=== PATIENT | female | born 1945 | race Caucasian/White ===

== ENCOUNTER 2016-07-01 09:10 | Outpatient (RCR) | payer MEDICARE, BC ==
[~2016-07-01 09:10] MED LIST: ACTOS; ASCO500T6 PO; ASP81TEC; CHOL100045 PO; EZET10TA5 PO; LORA10TA7 PO; MAGN250T13 PO; MULT1CAP27 PO; PIOG1TAB34 PO; VITA-189 PO; VITA400T9 PO; [UNRECOGNIZED DRUG - CODE] PO
[2016-07-01 10:01] LABS: BASOPHILS % (AUTO) 1 % (0-10); EOSINOPHILS # (AUTO) 0.2 10^3/uL (0.0-0.3); EOSINOPHILS % (AUTO) 4 % (0-10); LYMPHOCYTES # (AUTO) 1.9 X 10^3 (1.0-4.0); LYMPHOCYTES % (AUTO) 37 % (12-44); MEAN CORPUSCULAR HEMOGLOBIN 30 PG (25-34); MEAN CORPUSCULAR HGB CONC 33 G/DL (32-36); MEAN CORPUSCULAR VOLUME 90 FL (80-99); MEAN PLATELET VOLUME 9.2 FL (7.4-10.4); MONOCYTES # (AUTO) 0.6 X 10^3 (0.0-1.0); MONOCYTES % (AUTO) 11 % (0-12); NEUTROPHILS # (AUTO) 2.6 X 10^3 (1.8-7.8); NEUTROPHILS % (AUTO) 48 % (42-75); PLATELET COUNT 215 10^3/uL (130-400); RED BLOOD COUNT 4.93 10^6/uL (4.35-5.85); RED CELL DISTRIBUTION WIDTH 14.5 % (10.0-14.5); WHITE BLOOD COUNT 5.3 10^3/uL (4.3-11.0)
[2016-07-01 10:26] LABS: ALANINE AMINOTRANSFERASE 15 U/L (0-55); ALBUMIN 4.2 G/DL (3.2-4.5); ANION GAP 10 MMOL/L (5-14); ASPARTATE AMINO TRANSFERASE 20 U/L (5-34); BILIRUBIN,TOTAL 0.5 MG/DL (0.1-1.0); BLOOD UREA NITROGEN 12 MG/DL (7-18); BUN/CREATININE RATIO 17; CARBON DIOXIDE 25 MMOL/L (21-32); CHLORIDE 103 MMOL/L (98-107); CREATININE SERUM 0.72 MG/DL (0.60-1.30); GFR ESTIMATED > 60; GLUCOSE 94 MG/DL (70-105); LACTATE DEHYDROGENASE 231 U/L (125-220); POTASSIUM 4.4 MMOL/L (3.6-5.0); SODIUM 138 MMOL/L (135-145)
== END 2016-09-29 | disposition home or self-care (01) ==
LOC: ONC 09:10
PROVIDERS: ATTEND Internal Medicine Hematology & Oncology
DX: C85.82 Other specified types of non-Hodgkin lymphoma, intrathoracic lymph nodes (principal); E11.9 Type 2 diabetes mellitus without complications; Z79.899 Other long term (current) drug therapy; Z79.82 Long term (current) use of aspirin
CPT/HCPCS: 36415; 80053; 83615; 85025; 99213

== ENCOUNTER → 2016-09-05 | Outpatient (CLI) | payer MEDICARE, BC ==
--- NOTE | 2016-09-06 07:55 | ECHOCARDIOGRAPHY REPORT ---
PROCEDURE PHYSICIAN: CHEMA THOMPSON DATE OF PROCEDURE: 09/05/2016 TWO DIMENSIONAL ECHOCARDIOGRAM REPORT PRIMARY PHYSICIAN: Dr. Zeus Messina OTHER PHYSICIAN: REFERRING PHYSICIAN: ORDERING PHYSICIAN: ATTENDING PHYSICIAN: Dr. Saúl Thompson FAMILY PHYSICIAN: READING PHYSICIAN: INDICATION FOR THE PROCEDURE: Chest pain. MEASUREMENTS DERIVED VALUES LV DIAMETER (LAX) NORMALS NORMALS Diastolic (3.6-5.2) Eject. Fract. (60%+/-6%) Systolic (2.3-3.9) Diastolic Vol. % Shortening (0.22-0.42) Systolic Vol. Aortic Root IVS THICKNESS Diastolic (0.6-1.1) LVPW THICKNESS Diastolic (0.6-1.1) LA DIAMETER Systolic (2.1-3.7) FINDINGS: 1. Sinus rhythm. 2. Left atrial dimensions are mildly enlarged. Left atrial diameter is 3.9 cm. 3. Aortic root dimensions are normal. 4. Left ventricular systolic function is preserved. Left ventricular ejection fraction is 60%. Mild concentric LVH is present. Diastolic intraventricular septal diameter is 1.1 cm. 5. There are no wall motion abnormalities. 6. There is mild right ventricular enlargement with normal RV function. 7. There is no evidence of pericardial effusion. 8. Mild diastolic dysfunction. 9. IVC is normal with a diameter of 1.1 cm. VALVULAR STRUCTURE OF THE HEART: Mild pulmonic regurgitation, mild mitral regurgitation, mild tricuspid regurgitation with RVSP 27 mmHg. Mild sclerosis of the aortic valve is noted with mild aortic regurgitation. CONCLUSION: 1. LV size and function is normal. 2. LV EF is 60%. 3. Mild RV enlargement is noted with normal RV function. 4. There is no significant valvular heart disease. 5. Mild diastolic dysfunction is present. Job ID: [id number] Dictated Date: 09/05/2016 14:07:20 Admissions Consultant Date: 09/06/2016 07:53:03 / [email or web address]
== END ==
LOC: CARD 07:43
PROVIDERS: ATTEND Internal Medicine Interventional Cardiology
DX: R07.9 Chest pain, unspecified (principal); E13.9 Other specified diabetes mellitus without complications; E78.5 Hyperlipidemia, unspecified
CPT/HCPCS: 93306

== ENCOUNTER → 2016-09-19 | Outpatient (CLI) | payer MEDICARE, BC ==
[~2016-09-19] MED LIST changes: +CATHETER FLUSH 10 ML SYR IV PRN; +REGADENOSON 0.4 MG/5 ML SYR (LEXISCAN) IV ONE
[2016-09-19 12:58] VITALS: BP 130/64
[2016-09-19 13:32] VITALS: BP 159/78
--- NOTE | 2016-09-20 10:36 | STRESS TEST ---
PROCEDURE PHYSICIAN: CHEMA PELAYO PHARMACOLOGIC NUCLEAR STRESS TEST DATE OF PROCEDURE: 09/19/2016 REFERRING PHYSICIAN: Dr. Zeus Messina. DIAGNOSES: Chest pain. PROCEDURE DETAILS: The patient was brought to the stress lab after informed consent was taken. Stress test was performed according to the standard protocol. Lexiscan 0.4 mg was given. Low grade exercise was performed. Baseline EKG showed a heart rate of 80 bpm, in sinus rhythm. Blood pressure was 135-64 mmHg. Maximum heart rate was 110 bpm and blood pressure was 159/[address] mmHg. [address]-T wave abnormalities, chest pain or arrhythmias noted. Radionuclide isotope was given at peak vasodilatation. Stress test was stopped secondary to completion of protocol. 10.82 mCi of Myoview and 31.3 mCi of Myoview were given for stress images. Review of the myocardial perfusion imaging shows TID of 1.04. Ejection fraction is 71%. Normal wall motion and normal perfusion. CONCLUSION: 1. Pharmacological stress test is negative for ischemia. 2. No significant perfusion defects are noted. Job ID: [id number] Dictated Date: 09/19/2016 15:26:46 Anchor Tack Puller Date: 09/20/2016 10:31:56 / joseph
== END ==
LOC: CARD 11:10
PROVIDERS: ATTEND Internal Medicine Interventional Cardiology
DX: E78.5 Hyperlipidemia, unspecified (principal); E13.9 Other specified diabetes mellitus without complications; R07.9 Chest pain, unspecified
CPT/HCPCS: 78452; 93017

== ENCOUNTER 2016-12-30 07:59 | Outpatient (RCR) | payer MEDICARE, BC ==
[2016-12-30 08:50] LABS: BASOPHILS % (AUTO) 0 % (0-10); EOSINOPHILS # (AUTO) 0.2 10^3/uL (0.0-0.3); EOSINOPHILS % (AUTO) 3 % (0-10); LYMPHOCYTES # (AUTO) 1.6 X 10^3 (1.0-4.0); LYMPHOCYTES % (AUTO) 31 % (12-44); MEAN CORPUSCULAR HEMOGLOBIN 30 PG (25-34); MEAN CORPUSCULAR HGB CONC 33 G/DL (32-36); MEAN CORPUSCULAR VOLUME 90 FL (80-99); MEAN PLATELET VOLUME 8.8 FL (7.4-10.4); MONOCYTES # (AUTO) 0.6 X 10^3 (0.0-1.0); MONOCYTES % (AUTO) 11 % (0-12); NEUTROPHILS # (AUTO) 2.7 X 10^3 (1.8-7.8); NEUTROPHILS % (AUTO) 54 % (42-75); PLATELET COUNT 230 10^3/uL (130-400); RED BLOOD COUNT 4.77 10^6/uL (4.35-5.85); RED CELL DISTRIBUTION WIDTH 14.9 % (10.0-14.5)
[2016-12-30 09:50] LABS: ALANINE AMINOTRANSFERASE 15 U/L (0-55); ALBUMIN 4.1 G/DL (3.2-4.5); ANION GAP 7 MMOL/L (5-14); ASPARTATE AMINO TRANSFERASE 19 U/L (5-34); BILIRUBIN,TOTAL 0.5 MG/DL (0.1-1.0); BLOOD UREA NITROGEN 10 MG/DL (7-18); BUN/CREATININE RATIO 13; CALCIUM 9.4 MG/DL (8.5-10.1); CARBON DIOXIDE 28 MMOL/L (21-32); CHLORIDE 105 MMOL/L (98-107); CREATININE SERUM 0.78 MG/DL (0.60-1.30); GFR ESTIMATED > 60; GLUCOSE 119 MG/DL (70-105); LACTATE DEHYDROGENASE 221 U/L (125-220); POTASSIUM 4.2 MMOL/L (3.6-5.0); SODIUM 140 MMOL/L (135-145); TOTAL PROTEIN 6.9 G/DL (6.4-8.2)
== END 2017-03-30 | disposition home or self-care (01) ==
LOC: ONC 07:59
PROVIDERS: ATTEND Internal Medicine Hematology & Oncology
DX: C85.82 Other specified types of non-Hodgkin lymphoma, intrathoracic lymph nodes (principal); E11.9 Type 2 diabetes mellitus without complications; Z79.899 Other long term (current) drug therapy; Z79.82 Long term (current) use of aspirin
CPT/HCPCS: 80053; 83615; 85025; 99213

== ENCOUNTER → 2016-12-30 | Outpatient (CLI) | payer MEDICARE, BC ==
[~2016-12-30] MED LIST changes: -CATHETER FLUSH 10 ML SYR IV PRN; -REGADENOSON 0.4 MG/5 ML SYR (LEXISCAN) IV ONE
== END ==
LOC: LAB 08:43
PROVIDERS: ATTEND Internal Medicine Interventional Cardiology
DX: E78.5 Hyperlipidemia, unspecified (principal); I10 Essential (primary) hypertension; E11.9 Type 2 diabetes mellitus without complications
CPT/HCPCS: 36415; 80061; 82550; 82553

== ENCOUNTER → 2016-12-30 | Outpatient (CLI) | payer MEDICARE, BC ==
--- NOTE | 2016-12-31 11:08 | Diagnostic Imaging Report ---
Bilateral screening mammogram The current study was also evaluated with a Computer Aided Detection (CAD) system. Indication: Screening. No current complaints stated on the questionnaire. COMPARISON: 12/05/15 FINDINGS: The breasts are composed of scattered fibroglandular densities. There is no mass, architectural distortion or suspicious cluster of calcification. Allowing for technique and positional differences, no suspicious change is seen. IMPRESSION: No significant change. ACR BI-RADS Category 2: Benign findings. Result letter will be mailed to the patient. Note: At least 10% of breast cancer is not imaged by mammography. Dictated by: Dictated on workstation # [id number]
== END ==
LOC: RAD 07:17
PROVIDERS: ATTEND Internal Medicine
DX: Z12.31 Encounter for screening mammogram for malignant neoplasm of breast (principal)
CPT/HCPCS: 77067

== ENCOUNTER 2017-06-30 08:19 | Outpatient (RCR) | payer MEDICARE, BC ==
[2017-06-30 13:58] LABS: BASOPHILS % (AUTO) 1 % (0-10); EOSINOPHILS # (AUTO) 0.2 10^3/uL (0.0-0.3); EOSINOPHILS % (AUTO) 4 % (0-10); HEMATOCRIT 44 % (35-52); HEMOGLOBIN 14.3 G/DL (11.5-16.0); LYMPHOCYTES # (AUTO) 1.5 X 10^3 (1.0-4.0); LYMPHOCYTES % (AUTO) 33 % (12-44); MEAN CORPUSCULAR HEMOGLOBIN 30 PG (25-34); MEAN CORPUSCULAR HGB CONC 33 G/DL (32-36); MEAN CORPUSCULAR VOLUME 92 FL (80-99); MEAN PLATELET VOLUME 9.3 FL (7.4-10.4); MONOCYTES # (AUTO) 0.5 X 10^3 (0.0-1.0); MONOCYTES % (AUTO) 11 % (0-12); NEUTROPHILS # (AUTO) 2.3 X 10^3 (1.8-7.8); NEUTROPHILS % (AUTO) 51 % (42-75); PLATELET COUNT 241 10^3/uL (130-400); RED BLOOD COUNT 4.72 10^6/uL (4.35-5.85); RED CELL DISTRIBUTION WIDTH 14.5 % (10.0-14.5); WHITE BLOOD COUNT 4.5 10^3/uL (4.3-11.0)
[2017-06-30 14:09] LABS: ALANINE AMINOTRANSFERASE 17 U/L (0-55); ALBUMIN 3.8 GM/DL (3.2-4.5); ALKALINE PHOSPHATASE 54 U/L (40-136); BILIRUBIN,TOTAL 0.6 MG/DL (0.1-1.0); BUN/CREATININE RATIO 16; CALCIUM 9.1 MG/DL (8.5-10.1); CARBON DIOXIDE 25 MMOL/L (21-32); CHLORIDE 104 MMOL/L (98-107); CREATININE SERUM 0.75 MG/DL (0.60-1.30); GFR ESTIMATED > 60; GLUCOSE 118 MG/DL (70-105); POTASSIUM 4.2 MMOL/L (3.6-5.0); SODIUM 137 MMOL/L (135-145); TOTAL PROTEIN 6.5 GM/DL (6.4-8.2)
[2017-09-28] MEDS ORDERED: CEFD300C3 PO (00:15)
[2017-09-28] MEDS ORDERED: AZIT500T PO (00:15)
[2017-09-28] MEDS ORDERED: METH4TAB PO (00:15)
[2017-09-28] MEDS ORDERED: BENZ-13 PO (00:15)
== END 2017-09-28 | disposition home or self-care (01) ==
LOC: ONC 08:19
PROVIDERS: ATTEND Internal Medicine Hematology & Oncology
DX: C85.82 Other specified types of non-Hodgkin lymphoma, intrathoracic lymph nodes (principal); E11.9 Type 2 diabetes mellitus without complications; Z79.899 Other long term (current) drug therapy; Z79.82 Long term (current) use of aspirin
CPT/HCPCS: 36415; 80053; 83615; 85025; 99213

== ENCOUNTER 2017-09-27 23:07 | Emergency (ER) | payer MEDICARE, BC ==
[~2017-09-27] VITALS: Ht 167.6 cm; Wt 81.8 kg
[2017-09-28] MEDS ORDERED: RX-OSELTAMIVIR 75 MG (TAMIFLU) BOX OF 10 PO STA (00:06)
[2017-09-28] MEDS ORDERED: AZIT500T PO (00:15)
[2017-09-28] MEDS ORDERED: cefTRIAXone 1 GM (ROCEPHIN) VIAL IM ONE (00:15)
[2017-09-28] MEDS ORDERED: METH4TAB PO (00:15)
[2017-09-28] MEDS ORDERED: LIDOCAINE 1% INJ 20 ML (XYLOCAINE) VIAL INJ ONE (00:15)
[2017-09-28] MEDS ORDERED: CEFD300C3 PO (00:15)
[2017-09-28] MEDS ORDERED: BENZ-13 PO (00:15)
[2017-09-28] MEDS ORDERED: BENZONATATE 100 MG (TESSALON) CAPSULE PO ONE (00:15)
--- NOTE | 2017-09-28 00:15 | ED Cough/URI ---
General Chief Complaint: Cough/Cold/Flu Symptoms Stated Complaint: COUGH CHEST TIGHTNESS Nursing Triage Note: PT C/O COUGH AND SORE THROAT. SHE DENIES FEVER. Source: patient History of Present Illness Date Seen by Provider: Sep 27, 2017 Time Seen by Provider: 23:12 Initial Comments PT AND ARE BOTH BEING SEEN TONIGHT FOR SAME HAS BEEN SICK SINCE Friday09/24/17 WITH PRODUCTIVE COUGH, CONGESTION , CHEST TIGHTNESS WITH COUGHING PT BEGAN GETTING SICK YESTERDAY WITH SAME PT HAS CLEAR NASAL DRAINAGE AND SPUTUM AND ALSO A SORE THROAT NO SHORTNESS OF BREATH NO FEVER/SWEATS/CHILLS NO HEADACHE OR BODY ACHES BOTH RECEIVED FLU VACCINATIONS THIS YEAR SYMPTOMS ARE NO DIFFERENT TODAY NEITHER HAVE SOUGHT CARE UNTIL TONIGHT--EXTREMELY BAD WEATHER /ICE STORM CURRENTLY. PT STATES "SINCE WE'RE HERE, I THOUGHT I WOULD GET CHECKED TOO--I WOULDN'T HAVE COME OTHERWISE" PCP: DR. HOPKINS Allergies and Home Medications Allergies Coded Allergies: No Known Drug Allergies (Verified , 07/29/07) Home Medications Ascorbic Acid 500 Mg Tablet, 500 MG PO DAILY, (Reported) Azithromycin 500 Mg Tablet, 500 MG PO DAILY, #5 FOR INFECTION Prescribed by: ROSEMARY YATES on 09/28/1714 Benzonatate 100 Mg Capsule, 1-2 TAB PO TID, #30 Prescribed by: ROSEMARY YATES on 09/28/1714 Cefdinir 300 Mg Capsule, 300 MG PO BID, #20 Prescribed by: ROSEMARY YATES on 09/28/1714 Cholecalciferol (Vitamin D3) 1,000 Unit Tablet, 1,000 UNIT PO BID, (Reported) Ezetimibe 10 Mg Tablet, 10 MG PO DAILY, (Reported) Lecithin 1,200 Mg Capsule, 1,200 MG PO DAILY, (Reported) Loratadine 10 Mg Tablet, 10 MG PO DAILY, (Reported) Magnesium Oxide 250 Mg Tablet, 250 MG PO DAILY, (Reported) Methylprednisolone 4 Mg Tab.ds.pk, 4 MG PO UD, #1 Prescribed by: ROSEMARY YATES on 09/28/1714 Multivitamin 1 Each Capsule, 1 EACH PO DAILY, (Reported) Pioglitazone HCl/Metformin HCl 1 Each Tablet, 1 EACH PO BID, (Reported) Vitamin B Complex 1 Each Tablet, 1 EACH PO DAILY, (Reported) Vitamin E Mixed 400 Unit Tablet, 400 UNIT PO DAILY, (Reported) Constitutional: no symptoms reported, No chills, No diaphoresis, No dizziness, No fever, No malaise, No weakness EENTM: see HPI, nose congestion, throat pain Respiratory: see HPI, cough, phlegm, No short of breath, No wheezing Cardiovascular: see HPI, chest pain (WITH COUGHING ) Gastrointestinal: no symptoms reported Genitourinary: no symptoms reported Musculoskeletal: no symptoms reported Skin: no symptoms reported Psychiatric/Neurological: No Symptoms Reported Hematologic/Lymphatic: No Symptoms Reported Immunological/Allergic: no symptoms reported Past Kechxvv-Npcrvh-Nofoac Hx Patient Social History Alcohol Use: Denies Use Recreational Drug Use: No Smoking Status: Never a Smoker 2nd Hand Smoke Exposure: No Recent Foreign Travel: No Contact w/Someone Who Travel: No Recent Infectious Disease Expo: No Recent Hopitalizations: No Immunizations Up To Date Date of Pneumonia Vaccine: Sep 18, 2010 Date of Influenza Vaccine: May 18, 2015 Surgeries History of Surgeries: Yes (left KNEE , PORT placed and removed, BX THROAT) Surgeries: Orthopedic Respiratory History of Respiratory Disorde: No Cardiovascular History of Cardiac Disorders: Yes Cardiac Disorders: High Cholesterol, Hypertension Neurological History of Neurological Disord: No Reproductive System Hx Reproductive Disorders: No Genitourinary History of Genitourinary Disor: No Gastrointestinal History of Gastrointestinal Di: Yes Gastrointestinal Disorders: Diverticulosis Musculoskeletal History of Musculoskeletal Dis: No Endocrine History of Endocrine Disorders: Yes Endocrine Disorders: Diabetes, Non-Insulin dep HEENT History of HEENT Disorders: No Cancer History of Cancer: Yes (LARGE CELL FOLLICULAR LYMPHOMA/NON-HODGKINS LYMPHOMA-- DX 07/2007) Cancer: Lymphoma Did You Recieve Any Treatments: Yes Type of Tx Receive: Chemotherapy Psychosocial History of Psychiatric Problem: No Integumentary History of Skin or Integumenta: No Blood Transfusions History of Blood Disorders: No Physical Exam Vital Signs Vital Signs - First Documented 09/27/17 23:10 Temp 97.1 Pulse 100 Resp 16 B/P (MAP) 127/74 (91) Pulse Ox 98 O2 Delivery Room Air Capillary Refill : Less Than 3 Seconds General Appearance: WD/WN, no apparent distress, other (DOES NOT APPEAR ILL) HEENT: PERRL/EOMI, other (NASAL MUCOSAL EDEMA WITH CLEAR NASAL DRAINAGE) Neck: normal inspection Respiratory: normal breath sounds, no respiratory distress, no accessory muscle use Cardiovascular: regular rate, rhythm, no murmur Gastrointestinal: soft Extremities: normal inspection, no pedal edema Neurologic/Psychiatric: ground products director II-XII nml as tested, no motor/sensory deficits, alert, normal mood/affect, oriented x 3 Skin: normal color, warm/dry Progress/Results/Core Measures Suspected Sepsis Recent Fever Within 48 Hours: No Infection Criteria Present: None New/Unexplained Altered Menta: No Sepsis Screen: No Definite Risk Sepsis Diagnosis: SIRS Temperature:97.1 Pulse: 100 Respiratory Rate: 16 Blood Pressure 127 /74 Mean: 91 Results/Orders Micro Results Microbiology 09/27/17 Influenza Types A,B Antigen ([place]) - Final, Complete My Orders Orders - ROSEMARY YATES DO Influenza A And B Antigens (09/27/17 23:12) Ceftriaxone Injection (Rocephin Injectio (09/28/17 00:15) Lidocaine 1% Injection (Xylocaine 1% Inj (09/28/17 00:15) Benzonatate Capsule (Tessalon Perles) (09/28/17 09:00) Rx-Oseltamivir Caps (Rx-Tamiflu Caps) (09/28/17 00:06) Benzonatate Capsule (Tessalon Perles) (09/28/17 00:15) Medications Given in ED Current Medications Medications Dose Ordered Sig/Bev Route Start Time Stop Time Status Last Admin Dose Admin Ceftriaxone Sodium 1,000 mg ONCE ONCE IM 09/28/17 00:15 09/28/17 00:16 DC 09/28/17 00:28 1,000 MG Vital Signs/I&O Vital Sign - Last 12Hours 09/27/17 23:10 Temp 97.1 Pulse 100 Resp 16 B/P (MAP) 127/74 (91) Pulse Ox 98 O2 Delivery Room Air Capillary Refill : Less Than 3 Seconds Blood Pressure Mean: 91 Departure Impression Impression: Primary Impression: Influenza-like illness Additional Impressions: Bronchitis Upper respiratory infection Disposition: 01 HOME, SELF-CARE Condition: Stable Departure-Patient Inst. Referrals: MARYURI HOPKINS MD (PCP/Family) Primary Care Physician Patient Instructions: Flu, Adult (DC), Acute Bronchitis, Adult (DC), Cough, Runny Nose, and the Common Cold (DC), Viral Upper Respiratory Infection, Adult ( DC), Bacterial Upper Respiratory Infection, Adult (DC) Add. Discharge Instructions: LOTS OF CLEAR LIQUIDS TYLENOL AND MOTRIN NEEDED FOR PAIN OR FEVER OVER THE COUNTER MUCINEX DM FOR COUGH AND CONGESTION FLONASE OVER THE COUNTER FOR NASAL CONGESTION FOLLOW UP WITH DR. HOPKINS IN 3-4 DAYS IF NO BETTER All discharge instructions reviewed with patient and/or family. Voiced understanding. Scripts Benzonatate (Tessalon Perle) 100 Mg Capsule 1-2 TAB PO TID for Cough, #30 CAP Prov: ROSEMARY YATES DO 09/28/17 Methylprednisolone (Medrol) 4 Mg Tab.ds.pk 4 MG PO UD, #1 PKG Prov: ROSEMARY YATES DO 09/28/17 Azithromycin (Zithromax) 500 Mg Tablet 500 MG PO DAILY, #5 TAB FOR INFECTION Prov: ROSEMARY YATES DO 09/28/17 Cefdinir (Cefdinir) 300 Mg Capsule 300 MG PO BID for FOR INFECTION, #20 CAP Prov: ROSEMARY YATES DO 09/28/17 ROSEMARY YATES DO Sep 28, 2017 00:15
[2017-09-28 00:41] VITALS: BP 127/74
[2017-09-28] MEDS ORDERED: BENZONATATE 100 MG (TESSALON) CAPSULE PO SCH (09:00)
--- OUTSIDE RECORDS SUMMARY | 2017-09-28 11:40 | XMS REPORT | Continuity of Care Document ---
Author Author [facility] Organization [facility] Address Unknown Phone Unavailable Allergies Active Description Code Type Severity Reaction Onset Reported/Identified Relationship to Patient Clinical Status Yes No Known Drug Allergies [id number] Drug Allergy Unknown N/A 07/29/2007 Medications There is no data. Problems Date Dx Coded Attending Type Code Diagnosis Diagnosed By 05/15/2010 Ot 202.80 05/15/2010 Ot 562.10 05/15/2010 Ot V76.51 09/20/2012 Ot 202.82 LYMPHOMAS NEC THORAX 09/20/2012 Ot 250.00 DIAB KENDAL WO COMPL, TYPE II OR UNSPEC TY 09/20/2012 Ot V58.66 LONG-TERM ( CURRENT) USE OF ASPIRIN 09/20/2012 Ot V58.69 OTH MED,LT, CURRENT USE 09/20/2012 Ot V87.41 PERSONAL HISTORY OF ANTINEOPLASTIC CHEMO 08/08/2014 SEVERINO SWEENEY, MICKY Ot 202.82 08/08/2014 SEVERINO SWEENEY, LAILA-TANNER Ot 250.00 08/08/2014 SEVERINO SWEENEY, MICKY Ot V58.66 08/08/2014 SEVERINO SWEENEY, MICKY Ot V58.69 08/08/2014 SEVERINO SWEENEY, MICKY Ot V87.41 08/15/2014 SEVERINO SWEENEY, LAILA-TANNER Ot 202.82 08/15/2014 SEVERINO SWEENEY, LAILA-TANNER Ot 250.00 08/15/2014 SEVERINO SWEENEY, MICKY Ot V58.66 08/15/2014 SEVERINO SWEENEY, LAILA-TANNER Ot V58.69 08/15/2014 SEVERINO SWEENEY, MICKY Ot V87.41 09/06/2014 KELLIE SWEENEY, MARYURI Lopez Ot V76.12 01/26/2015 SEVERINO SWEENEY, MICKY Ot 202.82 01/26/2015 SEVERINO SWEENEY, MICKY Ot 250.00 01/26/2015 SEVERINO SWEENEY, MICKY Ot 709.9 01/26/2015 SEVERINO SWEENEY, MICKY Ot V58.66 01/26/2015 [facility] 01/26/2015 SEVERINO SWEENEY, [facility] Ot V87.41 02/07/2015 SEVERINO SWEENEY, [facility] Ot 202.82 02/07/2015 SEVERINO SWEENEY, [facility] Ot 250.00 02/07/2015 [facility]INO SWEENEY, [facility] Ot 709.9 02/07/2015 [facility]INO SWEENEY, [facility] Ot V58.66 02/07/2015 SEVERINO SWEENEY, [facility] Ot V58.69 02/07/2015 SEVERINO SWEENEY, [facility] Ot V87.41 05/16/2015 Ot V76.12 05/16/2015 Ot 202.82 05/16/2015 Ot 250.00 05/16/2015 Ot V58.66 05/16/2015 Ot V58.69 05/16/2015 Ot 202.82 05/16/2015 Ot 250.00 05/16/2015 Ot V58.66 05/16/2015 Ot V58.69 05/16/2015 Ot 202.82 05/16/2015 Ot 250.00 05/16/2015 Ot 202.82 05/16/2015 Ot 250.00 05/16/2015 Ot 288.50 05/16/2015 Ot V58.66 05/16/2015 Ot V58.69 05/16/2015 Ot V87.41 05/16/2015 Ot V76.12 05/16/2015 Ot 202.82 05/16/2015 Ot 250.00 05/16/2015 Ot V58.66 05/16/2015 Ot V58.69 05/16/2015 Ot V87.41 05/16/2015 Ot V49.81 05/16/2015 Ot V82.81 05/16/2015 Ot V76.12 05/16/2015 SEVERINO SWEENEY, [facility].82 05/16/2015 SEVERINO SWEENEY, [facility] Ot 250.00 05/16/2015 SEVERINO SWEENEY, [facility] Ot V58.66 05/16/2015 SEVERINO SWEENEY, [facility] Ot V58.69 05/16/2015 SEVERINO SWEENEY, [facility] Ot V87.41 05/16/2015 SEVERINO SWEENEY, [facility] Ot 202.82 05/16/2015 SEVERINO SWEENEY, ULLOA-TANNER Ot 250.00 05/16/2015 SEVERINO SWEENEY, ULLOA-TANNER Ot V58.66 05/16/2015 SEVERINO SWEENEY, ULLOA-TANNER Ot V58.69 05/16/2015 SEVERINO SWEENEY, ULLOA-TANNER Ot V87.41 05/16/2015 SEVERINO SWEENEY, ULL[facility]-TANNER Ot 202.82 05/16/2015 SEVERINO SWEENEY, ULLOA-TANNER Ot 250.00 05/16/2015 SEVERINO SWEENEY, ULLOA-TANNER Ot V58.66 05/16/2015 SEVERINO SWEENEY, ULLOA-TANNER Ot V58.69 05/16/2015 SEVERINO SWEENEY, ULLOA-TANNER Ot V87.41 05/16/2015 KELLIE SWEENEY, MARYURI Lopez Ot 715.35 05/16/2015 KELLIE SWEENEY, MARYURI Lopez Ot V76.12 05/16/2015 SEVERINO SWEENEY, ULLOA-TANNER Ot 202.82 05/16/2015 SEVERINO SWEENEY, ULLOA-TANNER Ot 250.00 05/16/2015 SEVERINO SWEENEY, ULLOA-TANNER Ot V58.66 05/16/2015 SEVERINO SWEENEY, ULLOA-TANNER Ot V58.69 05/16/2015 SEVERINO SWEENEY, ULLOA-TANNER Ot V87.41 05/16/2015 KELLIE SWEENEY, MARYURI Lopez Ot 786.2 05/16/2015 KELLIE SWEENEY, MARYURI Lopez Ot V10.79 05/16/2015 SEVERINO SWEENEY, ULLOA-TANNER Ot 202.82 05/16/2015 SEVERINO SWEENEY, ULLOA-TANNER Ot 250.00 05/16/2015 SEVERINO SWEENEY, ULLOA-TANNER Ot V58.66 05/16/2015 SEVERINO SWEENEY, ULLOA-TANNER Ot V58.69 05/16/2015 SEVERINO SWEENEY, ULLOA-TANNER Ot V87.41 05/16/2015 KELLIE SWEENEY, MARYURI Lopez Ot V76.12 05/16/2015 SEVERINO SWEENEY, ULLOA-TANNER Ot 202.82 05/16/2015 SEVERINO SWEENEY, ULLOA-TANNER Ot 250.00 05/16/2015 SEVERINO SWEENEY, ULLOA-TANNER Ot 709.9 05/16/2015 SEVERINO SWEENEY, ULLOA-TANNER Ot V58.66 05/16/2015 SEVERINO SWEENEY, ULLOA-TANNER Ot V58.69 05/16/2015 SEVERINO SWEENEY, ULLOA-TANNER Ot V87.41 08/15/2015 SEVERINO SWEENEY, ULLOA-TANNER Ot C85.82 08/15/2015 SEVERINO SWEENEY, MICKY Ot E11.9 08/15/2015 SEVERINO SWEENEY, KAYKAYTANNER Ot Z79.82 08/15/2015 SEVERINO SWEENEY, ULLOAAshleighTANNER Ot Z79.899 08/17/2015 SEVERINO SWEENEY, MICKY Ot C85.82 08/17/2015 SEVERINO SWEENEY, MICKY Ot E11.9 08/17/2015 SEVERINO SWEENEY, MICKY Ot Z79.82 08/17/2015 SEVERINO SWEENEY, KAYKAYTANNER Ot Z79.899 10/01/2015 SEVERINO SWEENEY, MICKY Ot 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, INTRA 10/01/2015 SEVERINO SWEENEY, MICKY Ot E11.9 TYPE 2 DIABETES MELLITUS WITHOUT COMPLIC 10/01/2015 SEVERINO SWEENEY, MICKY Ot Z79.82 ALF (CURRENT) USE OF ASPIRIN 10/01/2015 MICKY HAQ MD Ot Z79.899 OTHER WIRE FENCE ERECTOR (CURRENT) DRUG THERAPY 10/11/2015 Ot V76.12 10/11/2015 Ot 202.82 10/11/2015 Ot 250.00 10/11/2015 Ot V58.66 10/11/2015 Ot V58.69 10/11/2015 Ot 202.82 10/11/2015 Ot 250.00 10/11/2015 Ot V58.66 10/11/2015 Ot V58.69 10/11/2015 Ot 202.82 10/11/2015 Ot 250.00 10/11/2015 Ot 202.82 10/11/2015 Ot 250.00 10/11/2015 Ot 288.50 10/11/2015 Ot V58.66 10/11/2015 Ot V58.69 10/11/2015 Ot V87.41 10/11/2015 Ot V76.12 10/11/2015 Ot 202.82 10/11/2015 Ot 250.00 10/11/2015 Ot V58.66 10/11/2015 Ot V58.69 10/11/2015 Ot V87.41 10/11/2015 Ot V49.81 10/11/2015 Ot V82.81 10/11/2015 Ot V76.12 10/11/2015 ESVERINO SWEENEY, MICKY Ot 202.82 10/11/2015 SEVERINO SWEENEY, MICKY Ot 250.00 10/11/2015 SEVERINO SWEENEY, ULLOA-TANNER Ot V58.66 10/11/2015 SEVERINO SWEENEY, ULLOA-TANNER Ot V58.69 10/11/2015 SEVERINO SWEENEY, ULLOA-TANNER Ot V87.41 10/11/2015 SEVERINO SWEENEY, ULLOA-TANNER Ot 202.82 10/11/2015 SEVERINO SWEENEY, ULLOA-TANNER Ot 250.00 10/11/2015 SEVERINO SWEENEY, ULLOA-TANNER Ot V58.66 10/11/2015 SEVERINO SWEENEY, ULLOA-TANNER Ot V58.69 10/11/2015 SEVERINO SWEENEY, ULLOA-TANNER Ot V87.41 10/11/2015 SEVERINO SWEENEY, ULLOA-TANNER Ot 202.82 10/11/2015 SEVERINO SWEENEY, ULLOA-TANNER Ot 250.00 10/11/2015 SEVERINO SWEENEY, ULLOA-TANNER Ot V58.66 10/11/2015 SEVERINO SWEENEY, ULLOA-TANNER Ot V58.69 10/11/2015 SEVERINO SWEENEY, ULLOA-TANNER Ot V87.41 10/11/2015 KELLIE SWEENEY, MARYURI Lopez Ot 715.35 10/11/2015 KELLIE SWEENEY, MARYURI Lopez Ot V76.12 10/11/2015 SEVERINO SWEENEY, ULLOA-TANNER Ot 202.82 10/11/2015 SEVERINO SWEENEY, ULLOA-TANNER Ot 250.00 10/11/2015 SEVERINO SWEENEY, ULLOA-TANNER Ot V58.66 10/11/2015 SEVERINO SWEENEY, ULLOA-TANNER Ot V58.69 10/11/2015 SEVERINO SWEENEY, ULLOA-TANNER Ot V87.41 10/11/2015 KELLIE SWEENEY, MARYURI Lopez Ot 786.2 10/11/2015 KELLIE SWEENEY, MARYURI Lopez Ot V10.79 10/11/2015 SEVERINO SWEENEY, ULLOA-TANNER Ot 202.82 10/11/2015 SEVERINO SWEENEY, ULLOA-TANNER Ot 250.00 10/11/2015 SEVERINO SWEENEY, ULLOA-TANNER Ot V58.66 10/11/2015 SEVERINO SWEENEY, ULLOA-TANNER Ot V58.69 10/11/2015 SEVERINO SWEENEY, ULLOA-TANNER Ot V87.41 10/11/2015 KELLIE SWEENEY, MARYURI Lopez Ot V76.12 10/11/2015 SEVERINO SWEENEY, ULLOA-TANNER Ot 202.82 10/11/2015 SEVERINO SWEENEY, ULLOA-TANNER Ot 250.00 10/11/2015 SEVERINO SWEENEY, ULLOA-TANNER Ot 709.9 10/11/2015 SEVERINO SWEENEY, MICKY Ot V58.66 10/11/2015 SEVERINO SWEENEY, MICKY Ot V58.69 10/11/2015 SEVERINO SWEENEY, ULLOASHAVONNE Ot V87.41 10/11/2015 SEVERINO SWEENEY, KAYKAYTANNER Ot C85.82 10/11/2015 SEVERINO SWEENEY, MICKY Ot E11.9 10/11/2015 SEVERINO SWEENEY, MICKY Ot Z79.82 10/11/2015 SEVERINO SWEENEY, MICKY Ot Z79.899 10/13/2015 KELLIE SWEENEY, MARYURI Lopez Ot D12.2 BENIGN NEOPLASM OF ASCENDING COLON 10/13/2015 KELLIE SWEENEY, MARYURI Lopez Ot K57.30 DVRTCLOS OF LG INT W/O PERFORATION OR AB 10/13/2015 KELLIE SWEENEY, MARYURI Lopez Ot R19.4 CHANGE IN BOWEL HABIT 10/13/2015 KELLIE SWEENEY, MARYURI Lopez Ot Z86.010 PERSONAL HISTORY OF COLONIC POLYPS 12/05/2015 Ot 202.82 LYMPHOMAS NEC THORAX 12/05/2015 Ot 250.00 DIAB KENDAL WO COMPL, TYPE II OR UNSPEC TY 12/05/2015 Ot V58.66 LONG-TERM ( CURRENT) USE OF ASPIRIN 12/05/2015 Ot V58.69 OTH MED,LT, CURRENT USE 12/05/2015 Ot 202.82 LYMPHOMAS NEC THORAX 12/05/2015 Ot 250.00 DIAB KENDAL WO COMPL, TYPE II OR UNSPEC TY 12/05/2015 Ot 202.82 LYMPHOMAS NEC THORAX 12/05/2015 Ot 250.00 DIAB KENDAL WO COMPL, TYPE II OR UNSPEC TY 12/05/2015 Ot 288.50 LEUKOCYTOPENIA, UNSPECIFIED 12/05/2015 Ot V58.66 LONG-TERM ( CURRENT) USE OF ASPIRIN 12/05/2015 Ot V58.69 OTH MED,LT, CURRENT USE 12/05/2015 Ot V87.41 PERSONAL HISTORY OF ANTINEOPLASTIC CHEMO 12/05/2015 Ot V76.12 OTH SCREEN MAMMO-MALIGN NEOPLASM OF LV 12/05/2015 Ot 202.82 LYMPHOMAS NEC THORAX 12/05/2015 Ot 250.00 DIAB KENDAL WO COMPL, TYPE II OR UNSPEC TY 12/05/2015 Ot V58.66 LONG-TERM ( CURRENT) USE OF ASPIRIN 12/05/2015 Ot V58.69 OTH MED,LT, CURRENT USE 12/05/2015 Ot V87.41 PERSONAL HISTORY OF ANTINEOPLASTIC CHEMO 12/05/2015 Ot V49.81 ASYMPT POSTMENOPAUSAL STATUS (AGE-RELATE 12/05/2015 Ot V82.81 SCREENING FOR OSTEOPOROSIS 12/05/2015 Ot V76.12 OTH SCREEN MAMMO-MALIGN NEOPLASM OF LV 12/05/2015 MICKY HAQ MD Ot 202.82 LYMPHOMAS NEC THORAX 12/05/2015 MICKY HAQ MD Ot 250.00 DIAB KENDAL WO COMPL, TYPE II OR UNSPEC TY 12/05/2015 MICKY HAQ MD Ot V58.66 LONG-TERM (CURRENT) USE OF ASPIRIN 12/05/2015 MICKY HAQ MD Ot V58.69 OTH MED,LT,CURRENT USE 12/05/2015 MICKY HAQ MD Ot V87.41 PERSONAL HISTORY OF ANTINEOPLASTIC CHEMO 12/05/2015 MICKY HAQ MD Ot 202.82 LYMPHOMAS NEC THORAX 12/05/2015 MICKY HAQ MD Ot 250.00 DIAB KENDAL WO COMPL, TYPE II OR UNSPEC TY 12/05/2015 MICKY HAQ MD Ot V58.66 LONG-TERM (CURRENT) USE OF ASPIRIN 12/05/2015 MICKY HAQ MD Ot V58.69 OTH MED,LT,CURRENT USE 12/05/2015 MICKY HAQ MD Ot V87.41 PERSONAL HISTORY OF ANTINEOPLASTIC CHEMO 12/05/2015 MICKY HAQ MD Ot 202.82 LYMPHOMAS NEC THORAX 12/05/2015 MICKY HAQ MD Ot 250.00 DIAB KENDAL WO COMPL, TYPE II OR UNSPEC TY 12/05/2015 MICKY HAQ MD Ot V58.66 LONG-TERM (CURRENT) USE OF ASPIRIN 12/05/2015 MICKY HAQ MD Ot V58.69 OTH MED,LT,CURRENT USE 12/05/2015 MICKY HAQ MD Ot V87.41 PERSONAL HISTORY OF ANTINEOPLASTIC CHEMO 12/05/2015 MARYURI HOPKINS MD Ot 715.35 LOC OSTEOARTH NOS-PELVIS 12/05/2015 MARYURI HOPKINS MD Ot V76.12 OTH SCREEN MAMMO-MALIGN NEOPLASM OF LV 12/05/2015 MICKY HAQ MD Ot 202.82 LYMPHOMAS NEC THORAX 12/05/2015 MICKY HAQ MD Ot 250.00 DIAB KENDAL WO COMPL, TYPE II OR UNSPEC TY 12/05/2015 MICKY HAQ MD Ot V58.66 LONG-TERM (CURRENT) USE OF ASPIRIN 12/05/2015 MICKY HAQ MD, Ot V58.69 OTH MED,LT,CURRENT USE 12/05/2015 MICKY HAQ MD Ot V87.41 PERSONAL HISTORY OF ANTINEOPLASTIC CHEMO 12/05/2015 MARYURI HOPKINS MD Ot 786.2 COUGH 12/05/2015 MARYURI HOPKINS MD Ot V10.79 HX-LYMPHATIC MALIGN NEC 12/05/2015 MICKY HAQ MD Ot 202.82 LYMPHOMAS NEC THORAX 12/05/2015 MICKY HAQ MD Ot 250.00 DIAB KENDAL WO COMPL, TYPE II OR UNSPEC TY 12/05/2015 MICKY HAQ MD Ot V58.66 LONG-TERM (CURRENT) USE OF ASPIRIN 12/05/2015 MICKY HAQ MD Ot V58.69 OTH MED,LT,CURRENT USE 12/05/2015 MICKY HAQ MD Ot V87.41 PERSONAL HISTORY OF ANTINEOPLASTIC CHEMO 12/05/2015 MARYURI HOPKINS MD Ot V76.12 OTH SCREEN MAMMO-MALIGN NEOPLASM OF LV 12/05/2015 MICKY HAQ MD Ot 202.82 LYMPHOMAS NEC THORAX 12/05/2015 MICKY HAQ MD Ot 250.00 DIAB KENDAL WO COMPL, TYPE II OR UNSPEC TY 12/05/2015 MICKY HAQ MD Ot 709.9 SKIN DISORDER NOS 12/05/2015 MICKY HAQ MD Ot V58.66 LONG-TERM (CURRENT) USE OF ASPIRIN 12/05/2015 MICKY HAQ MD Ot V58.69 OTH MED,LT,CURRENT USE 12/05/2015 MICKY HAQ MD Ot V87.41 PERSONAL HISTORY OF ANTINEOPLASTIC CHEMO 12/05/2015 MICKY HAQ MD, Ot 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, INTRA 12/05/2015 MICKY HAQ MD Ot E11.9 TYPE 2 DIABETES MELLITUS WITHOUT COMPLIC 12/05/2015 MICKY HAQ MD Ot Z79.82 WIRE FENCE ERECTOR (CURRENT) USE OF ASPIRIN 12/05/2015 SEVERINO SWEENEY MICKY Ot Z79.899 OTHER WIRE FENCE ERECTOR (CURRENT) DRUG THERAPY 12/05/2015 MARYURI HOPKINS MD Ot Z01.818 ENCOUNTER FOR OTHER PREPROCEDURAL EXAMIN 12/05/2015 MARYURI HOPKINS MD Ot Z12.11 ENCOUNTER FOR SCREENING FOR MALIGNANT NE 12/06/2015 MARYURI HOPKINS MD Ot Z12.31 ENCNTR SCREEN MAMMOGRAM FOR MALIGNANT NE 12/08/2015 MARYURI HOPKINS MD Ot Z12.31 ENCNTR SCREEN MAMMOGRAM FOR MALIGNANT NE 12/11/2015 MARYURI HOPKINS MD Ot Z12.31 ENCNTR SCREEN MAMMOGRAM FOR MALIGNANT NE 12/20/2015 Ot 202.82 LYMPHOMAS NEC THORAX 12/20/2015 Ot 250.00 DIAB KENDAL WO COMPL, TYPE II OR UNSPEC TY 12/20/2015 Ot V58.66 LONG-TERM ( CURRENT) USE OF ASPIRIN 12/20/2015 Ot V58.69 OTH MED,LT, CURRENT USE 12/20/2015 Ot 202.82 LYMPHOMAS NEC THORAX 12/20/2015 Ot 250.00 DIAB KENDAL WO COMPL, TYPE II OR UNSPEC TY 12/20/2015 Ot 202.82 LYMPHOMAS NEC THORAX 12/20/2015 Ot 250.00 DIAB KENDAL WO COMPL, TYPE II OR UNSPEC TY 12/20/2015 Ot 288.50 LEUKOCYTOPENIA, UNSPECIFIED 12/20/2015 Ot V58.66 LONG-TERM ( CURRENT) USE OF ASPIRIN 12/20/2015 Ot V58.69 OTH MED,LT, CURRENT USE 12/20/2015 Ot V87.41 PERSONAL HISTORY OF ANTINEOPLASTIC CHEMO 12/20/2015 Ot V76.12 OTH SCREEN MAMMO-MALIGN NEOPLASM OF LV 12/20/2015 Ot 202.82 LYMPHOMAS NEC THORAX 12/20/2015 Ot 250.00 DIAB KENDAL WO COMPL, TYPE II OR UNSPEC TY 12/20/2015 Ot V58.66 LONG-TERM ( CURRENT) USE OF ASPIRIN 12/20/2015 Ot V58.69 OTH MED,LT, CURRENT USE 12/20/2015 Ot V87.41 PERSONAL HISTORY OF ANTINEOPLASTIC CHEMO 12/20/2015 Ot V49.81 ASYMPT POSTMENOPAUSAL STATUS (AGE-RELATE 12/20/2015 Ot V82.81 SCREENING FOR OSTEOPOROSIS 12/20/2015 Ot V76.12 OTH SCREEN MAMMO-MALIGN NEOPLASM OF LV 12/20/2015 MICKY HAQ MD Ot 202.82 LYMPHOMAS NEC THORAX 12/20/2015 MICKY HAQ MD Ot 250.00 DIAB KENDAL WO COMPL, TYPE II OR UNSPEC TY 12/20/2015 MICKY HAQ MD Ot V58.66 LONG-TERM (CURRENT) USE OF ASPIRIN 12/20/2015 MICKY HAQ MD Ot V58.69 OTH MED,LT,CURRENT USE 12/20/2015 MICKY HAQ MD Ot V87.41 PERSONAL HISTORY OF ANTINEOPLASTIC CHEMO 12/20/2015 MICKY HAQ MD Ot 202.82 LYMPHOMAS NEC THORAX 12/20/2015 MICKY HAQ MD Ot 250.00 DIAB KENDAL WO COMPL, TYPE II OR UNSPEC TY 12/20/2015 MICKY HAQ MD Ot V58.66 LONG-TERM (CURRENT) USE OF ASPIRIN 12/20/2015 MICKY HAQ MD Ot V58.69 OTH MED,LT,CURRENT USE 12/20/2015 MICKY HAQ MD Ot V87.41 PERSONAL HISTORY OF ANTINEOPLASTIC CHEMO 12/20/2015 MICKY HAQ MD Ot 202.82 LYMPHOMAS NEC THORAX 12/20/2015 MICKY HAQ MD Ot 250.00 DIAB KENDAL WO COMPL, TYPE II OR UNSPEC TY 12/20/2015 MICKY HAQ MD Ot V58.66 LONG-TERM (CURRENT) USE OF ASPIRIN 12/20/2015 MICKY HAQ MD Ot V58.69 OTH MED,LT,CURRENT USE 12/20/2015 MICKY HAQ MD Ot V87.41 PERSONAL HISTORY OF ANTINEOPLASTIC CHEMO 12/20/2015 MARYURI HOPKINS MD Ot 715.35 LOC OSTEOARTH NOS-PELVIS 12/20/2015 MARYURI HOPKINS MD Ot V76.12 OTH SCREEN MAMMO-MALIGN NEOPLASM OF LV 12/20/2015 MICKY HAQ MD Ot 202.82 LYMPHOMAS NEC THORAX 12/20/2015 MICKY HAQ MD Ot 250.00 DIAB KENDAL WO COMPL, TYPE II OR UNSPEC TY 12/20/2015 MICKY HAQ MD Ot V58.66 LONG-TERM (CURRENT) USE OF ASPIRIN 12/20/2015 MICKY HAQ MD Ot V58.69 OTH MED,LT,CURRENT USE 12/20/2015 MICKY HAQ MD Ot V87.41 PERSONAL HISTORY OF ANTINEOPLASTIC CHEMO 12/20/2015 MARYURI HOPKINS MD Ot 786.2 COUGH 12/20/2015 MARYURI HOPKINS MD Ot V10.79 HX-LYMPHATIC MALIGN NEC 12/20/2015 MICKY HAQ MD Ot 202.82 LYMPHOMAS NEC THORAX 12/20/2015 MICKY HAQ MD Ot 250.00 DIAB KENDAL WO COMPL, TYPE II OR UNSPEC TY 12/20/2015 MICKY HAQ MD Ot V58.66 LONG-TERM (CURRENT) USE OF ASPIRIN 12/20/2015 MICKY HAQ MD, Ot V58.69 OTH MED,LT,CURRENT USE 12/20/2015 MICKY HAQ MD Ot V87.41 PERSONAL HISTORY OF ANTINEOPLASTIC CHEMO 12/20/2015 MARYURI HOPKINS MD Ot V76.12 OTH SCREEN MAMMO-MALIGN NEOPLASM OF LV 12/20/2015 MICKY HAQ MD Ot 202.82 LYMPHOMAS NEC THORAX 12/20/2015 MICKY HAQ MD Ot 250.00 DIAB KENDAL WO COMPL, TYPE II OR UNSPEC TY 12/20/2015 MICKY HAQ MD Ot 709.9 SKIN DISORDER NOS 12/20/2015 MICKY HAQ MD Ot V58.66 LONG-TERM (CURRENT) USE OF ASPIRIN 12/20/2015 MICKY HAQ MD, Ot V58.69 OTH MED,LT,CURRENT USE 12/20/2015 MICKY HAQ MD Ot V87.41 PERSONAL HISTORY OF ANTINEOPLASTIC CHEMO 12/20/2015 MICKY HAQ MD Ot 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, INTRA 12/20/2015 MICKY HAQ MD Ot E11.9 TYPE 2 DIABETES MELLITUS WITHOUT COMPLIC 12/20/2015 MICKY HAQ MD, Ot Z79.82 ALF (CURRENT) USE OF ASPIRIN 12/20/2015 MICKY HAQ MD Ot Z79.899 OTHER ALF (CURRENT) DRUG THERAPY 12/20/2015 MARYURI HOPKINS MD Ot Z01.818 ENCOUNTER FOR OTHER PREPROCEDURAL EXAMIN 12/20/2015 MARYURI HOPKINS MD Ot Z12.11 ENCOUNTER FOR SCREENING FOR MALIGNANT NE 12/20/2015 MARYURI HOPKINS MD D Ot Z12.31 ENCNTR SCREEN MAMMOGRAM FOR MALIGNANT NE 12/22/2015 Ot 202.82 LYMPHOMAS NEC THORAX 12/22/2015 Ot 250.00 DIAB KENDAL WO COMPL, TYPE II OR UNSPEC TY 12/22/2015 Ot V58.66 LONG-TERM ( CURRENT) USE OF ASPIRIN 12/22/2015 Ot V58.69 OTH MED,LT, CURRENT USE 12/22/2015 Ot 202.82 LYMPHOMAS NEC THORAX 12/22/2015 Ot 250.00 DIAB KENDAL WO COMPL, TYPE II OR UNSPEC TY 12/22/2015 Ot 202.82 LYMPHOMAS NEC THORAX 12/22/2015 Ot 250.00 DIAB KENDAL WO COMPL, TYPE II OR UNSPEC TY 12/22/2015 Ot 288.50 LEUKOCYTOPENIA, UNSPECIFIED 12/22/2015 Ot V58.66 LONG-TERM ( CURRENT) USE OF ASPIRIN 12/22/2015 Ot V58.69 OTH MED,LT, CURRENT USE 12/22/2015 Ot V87.41 PERSONAL HISTORY OF ANTINEOPLASTIC CHEMO 12/22/2015 Ot V76.12 OTH SCREEN MAMMO-MALIGN NEOPLASM OF LV 12/22/2015 Ot 202.82 LYMPHOMAS NEC THORAX 12/22/2015 Ot 250.00 DIAB KENDAL WO COMPL, TYPE II OR UNSPEC TY 12/22/2015 Ot V58.66 LONG-TERM ( CURRENT) USE OF ASPIRIN 12/22/2015 Ot V58.69 OTH MED,LT, CURRENT USE 12/22/2015 Ot V87.41 PERSONAL HISTORY OF ANTINEOPLASTIC CHEMO 12/22/2015 Ot V49.81 ASYMPT POSTMENOPAUSAL STATUS (AGE-RELATE 12/22/2015 Ot V82.81 SCREENING FOR OSTEOPOROSIS 12/22/2015 Ot V76.12 OTH SCREEN MAMMO-MALIGN NEOPLASM OF LV 12/22/2015 MICKY HAQ MD Ot 202.82 LYMPHOMAS NEC THORAX 12/22/2015 MICKY HAQ MD Ot 250.00 DIAB KENDAL WO COMPL, TYPE II OR UNSPEC TY 12/22/2015 MICKY HAQ MD Ot V58.66 LONG-TERM (CURRENT) USE OF ASPIRIN 12/22/2015 MICKY HAQ MD Ot V58.69 OTH MED,LT,CURRENT USE 12/22/2015 MICKY HAQ MD Ot V87.41 PERSONAL HISTORY OF ANTINEOPLASTIC CHEMO 12/22/2015 MICKY HAQ MD Ot 202.82 LYMPHOMAS NEC THORAX 12/22/2015 MICKY HAQ MD Ot 250.00 DIAB KENDAL WO COMPL, TYPE II OR UNSPEC TY 12/22/2015 MICKY HAQ MD Ot V58.66 LONG-TERM (CURRENT) USE OF ASPIRIN 12/22/2015 MICKY HAQ MD Ot V58.69 OTH MED,LT,CURRENT USE 12/22/2015 MICKY HAQ MD Ot V87.41 PERSONAL HISTORY OF ANTINEOPLASTIC CHEMO 12/22/2015 MICKY HAQ MD Ot 202.82 LYMPHOMAS NEC THORAX 12/22/2015 MICKY HAQ MD Ot 250.00 DIAB KENDAL WO COMPL, TYPE II OR UNSPEC TY 12/22/2015 MICKY HAQ MD Ot V58.66 LONG-TERM (CURRENT) USE OF ASPIRIN 12/22/2015 MICKY HAQ MD Ot V58.69 OTH MED,LT,CURRENT USE 12/22/2015 MICKY HAQ MD Ot V87.41 PERSONAL HISTORY OF ANTINEOPLASTIC CHEMO 12/22/2015 MARYURI HOPKINS MD Ot 715.35 LOC OSTEOARTH NOS-PELVIS 12/22/2015 MARYURI HOPKINS MD Ot V76.12 OTH SCREEN MAMMO-MALIGN NEOPLASM OF LV 12/22/2015 MICKY HAQ MD Ot 202.82 LYMPHOMAS NEC THORAX 12/22/2015 MICKY HAQ MD Ot 250.00 DIAB KENDAL WO COMPL, TYPE II OR UNSPEC TY 12/22/2015 MICKY HAQ MD Ot V58.66 LONG-TERM (CURRENT) USE OF ASPIRIN 12/22/2015 MICKY HAQ MD Ot V58.69 OTH MED,LT,CURRENT USE 12/22/2015 MICKY HAQ MD Ot V87.41 PERSONAL HISTORY OF ANTINEOPLASTIC CHEMO 12/22/2015 MARYURI HOPKINS MD Ot 786.2 COUGH 12/22/2015 MARYURI HOPKINS MD Ot V10.79 HX-LYMPHATIC MALIGN NEC 12/22/2015 MICKY HAQ MD Ot 202.82 LYMPHOMAS NEC THORAX 12/22/2015 MICKY HAQ MD Ot 250.00 DIAB KENDAL WO COMPL, TYPE II OR UNSPEC TY 12/22/2015 MICKY HAQ MD Ot V58.66 LONG-TERM (CURRENT) USE OF ASPIRIN 12/22/2015 MICKY HAQ MD, Ot V58.69 OTH MED,LT,CURRENT USE 12/22/2015 MICKY HAQ MD, Ot V87.41 PERSONAL HISTORY OF ANTINEOPLASTIC CHEMO 12/22/2015 MARYURI HOPKINS MD Ot V76.12 OTH SCREEN MAMMO-MALIGN NEOPLASM OF LV 12/22/2015 MICKY HAQ MD Ot 202.82 LYMPHOMAS NEC THORAX 12/22/2015 MICKY HAQ MD Ot 250.00 DIAB KENDAL WO COMPL, TYPE II OR UNSPEC TY 12/22/2015 MICKY HAQ MD Ot 709.9 SKIN DISORDER NOS 12/22/2015 MICKY HAQ MD, Ot V58.66 LONG-TERM (CURRENT) USE OF ASPIRIN 12/22/2015 MICKY HAQ MD, Ot V58.69 OTH MED,LT,CURRENT USE 12/22/2015 MICKY HAQ MD, Ot V87.41 PERSONAL HISTORY OF ANTINEOPLASTIC CHEMO 12/22/2015 MICKY HAQ MD, Ot 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, INTRA 12/22/2015 MICKY HAQ MD Ot E11.9 TYPE 2 DIABETES MELLITUS WITHOUT COMPLIC 12/22/2015 MICKY HAQ MD, Ot Z79.82 ALF (CURRENT) USE OF ASPIRIN 12/22/2015 MICKY HAQ MD Ot Z79.899 OTHER ALF (CURRENT) DRUG THERAPY 12/22/2015 MARYURI HOPKINS MD Ot Z01.818 ENCOUNTER FOR OTHER PREPROCEDURAL EXAMIN 12/22/2015 MARYURI HOPKINS MD Ot Z12.11 ENCOUNTER FOR SCREENING FOR MALIGNANT NE 12/22/2015 MARYURI HOPKINS MD Ot Z12.31 ENCNTR SCREEN MAMMOGRAM FOR MALIGNANT NE 12/25/2015 MICKY HAQ MD, Ot 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, INTRA 12/25/2015 MICKY HAQ MD, Ot E11.9 TYPE 2 DIABETES MELLITUS WITHOUT COMPLIC 12/25/2015 MICKY HAQ MD, Ot Z79.82 WIRE FENCE ERECTOR (CURRENT) USE OF ASPIRIN 12/25/2015 MICKY HAQ MD Ot Z79.899 OTHER WIRE FENCE ERECTOR (CURRENT) DRUG THERAPY 12/26/2015 KELLIE SWEENEY MARYURI Lopez Ot Z12.31 ENCNTR SCREEN MAMMOGRAM FOR MALIGNANT NE 01/02/2016 SEVERINO SWEENEY, MICKY Ot 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, INTRA 01/02/2016 SEVERINO SWEENEY, MICKY Ot E11.9 TYPE 2 DIABETES MELLITUS WITHOUT COMPLIC 01/02/2016 MICKY HAQ MD Ot Z79.82 ALF (CURRENT) USE OF ASPIRIN 01/02/2016 MICKY HAQ MD Ot Z79.899 OTHER ALF (CURRENT) DRUG THERAPY 01/09/2016 Ot 202.82 LYMPHOMAS NEC THORAX 01/09/2016 Ot 250.00 DIAB KENDAL WO COMPL, TYPE II OR UNSPEC TY 01/09/2016 Ot V58.66 LONG-TERM ( CURRENT) USE OF ASPIRIN 01/09/2016 Ot V58.69 OTH MED,LT, CURRENT USE 01/09/2016 Ot 202.82 LYMPHOMAS NEC THORAX 01/09/2016 Ot 250.00 DIAB KENDAL WO COMPL, TYPE II OR UNSPEC TY 01/09/2016 Ot 202.82 LYMPHOMAS NEC THORAX 01/09/2016 Ot 250.00 DIAB KENDAL WO COMPL, TYPE II OR UNSPEC TY 01/09/2016 Ot 288.50 LEUKOCYTOPENIA, UNSPECIFIED 01/09/2016 Ot V58.66 LONG-TERM ( CURRENT) USE OF ASPIRIN 01/09/2016 Ot V58.69 OTH MED,LT, CURRENT USE 01/09/2016 Ot V87.41 PERSONAL HISTORY OF ANTINEOPLASTIC CHEMO 01/09/2016 Ot V76.12 OTH SCREEN MAMMO-MALIGN NEOPLASM OF LV 01/09/2016 Ot 202.82 LYMPHOMAS NEC THORAX 01/09/2016 Ot 250.00 DIAB KENDAL WO COMPL, TYPE II OR UNSPEC TY 01/09/2016 Ot V58.66 LONG-TERM ( CURRENT) USE OF ASPIRIN 01/09/2016 Ot V58.69 OTH MED,LT, CURRENT USE 01/09/2016 Ot V87.41 PERSONAL HISTORY OF ANTINEOPLASTIC CHEMO 01/09/2016 Ot V49.81 ASYMPT POSTMENOPAUSAL STATUS (AGE-RELATE 01/09/2016 Ot V82.81 SCREENING FOR OSTEOPOROSIS 01/09/2016 Ot V76.12 OTH SCREEN MAMMO-MALIGN NEOPLASM OF LV 01/09/2016 MICKY HAQ MD Ot 202.82 LYMPHOMAS NEC THORAX 01/09/2016 MICKY HAQ MD Ot 250.00 DIAB KENDAL WO COMPL, TYPE II OR UNSPEC TY 01/09/2016 MICKY HAQ MD Ot V58.66 LONG-TERM (CURRENT) USE OF ASPIRIN 01/09/2016 MICKY HAQ MD Ot V58.69 OTH MED,LT,CURRENT USE 01/09/2016 MICKY HAQ MD Ot V87.41 PERSONAL HISTORY OF ANTINEOPLASTIC CHEMO 01/09/2016 MICKY HAQ MD Ot 202.82 LYMPHOMAS NEC THORAX 01/09/2016 MICKY HAQ MD Ot 250.00 DIAB KENDAL WO COMPL, TYPE II OR UNSPEC TY 01/09/2016 MICKY HAQ MD Ot V58.66 LONG-TERM (CURRENT) USE OF ASPIRIN 01/09/2016 MICKY HAQ MD, Ot V58.69 OTH MED,LT,CURRENT USE 01/09/2016 MICKY HAQ MD Ot V87.41 PERSONAL HISTORY OF ANTINEOPLASTIC CHEMO 01/09/2016 MICKY HAQ MD Ot 202.82 LYMPHOMAS NEC THORAX 01/09/2016 MICKY HAQ MD Ot 250.00 DIAB KENDAL WO COMPL, TYPE II OR UNSPEC TY 01/09/2016 MICKY HAQ MD Ot V58.66 LONG-TERM (CURRENT) USE OF ASPIRIN 01/09/2016 MICKY HAQ MD, Ot V58.69 OTH MED,LT,CURRENT USE 01/09/2016 MICKY HAQ MD Ot V87.41 PERSONAL HISTORY OF ANTINEOPLASTIC CHEMO 01/09/2016 MARYURI HOPKINS MD Ot 715.35 LOC OSTEOARTH NOS-PELVIS 01/09/2016 MARYURI HOPKINS MD Ot V76.12 OTH SCREEN MAMMO-MALIGN NEOPLASM OF LV 01/09/2016 MICKY HAQ MD Ot 202.82 LYMPHOMAS NEC THORAX 01/09/2016 MICKY HAQ MD Ot 250.00 DIAB KENDAL WO COMPL, TYPE II OR UNSPEC TY 01/09/2016 MICKY HAQ MD Ot V58.66 LONG-TERM (CURRENT) USE OF ASPIRIN 01/09/2016 MICKY HAQ MD Ot V58.69 OTH MED,LT,CURRENT USE 01/09/2016 MICKY HAQ MD Ot V87.41 PERSONAL HISTORY OF ANTINEOPLASTIC CHEMO 01/09/2016 MARYURI HOPKINS MD Ot 786.2 COUGH 01/09/2016 MARYURI HOPKINS MD Ot V10.79 HX-LYMPHATIC MALIGN NEC 01/09/2016 MICKY HAQ MD Ot 202.82 LYMPHOMAS NEC THORAX 01/09/2016 MICKY HAQ MD Ot 250.00 DIAB KENDAL WO COMPL, TYPE II OR UNSPEC TY 01/09/2016 MICKY HAQ MD, Ot V58.66 LONG-TERM (CURRENT) USE OF ASPIRIN 01/09/2016 MICKY HAQ MD, Ot V58.69 OTH MED,LT,CURRENT USE 01/09/2016 MICKY HAQ MD Ot V87.41 PERSONAL HISTORY OF ANTINEOPLASTIC CHEMO 01/09/2016 MARYURI HOPKINS MD, Ot V76.12 OTH SCREEN MAMMO-MALIGN NEOPLASM OF LV 01/09/2016 MICKY HAQ MD Ot 202.82 LYMPHOMAS NEC THORAX 01/09/2016 MICKY HAQ MD Ot 250.00 DIAB KENDAL WO COMPL, TYPE II OR UNSPEC TY 01/09/2016 MICKY HAQ MD Ot 709.9 SKIN DISORDER NOS 01/09/2016 MICKY HAQ MD Ot V58.66 LONG-TERM (CURRENT) USE OF ASPIRIN 01/09/2016 MICKY HAQ MD, Ot V58.69 OTH MED,LT,CURRENT USE 01/09/2016 MICKY HAQ MD Ot V87.41 PERSONAL HISTORY OF ANTINEOPLASTIC CHEMO 01/09/2016 MICKY HAQ MD, Ot 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, INTRA 01/09/2016 MICKY HAQ MD Ot E11.9 TYPE 2 DIABETES MELLITUS WITHOUT COMPLIC 01/09/2016 MICKY HAQ MD Ot Z79.82 WIRE FENCE ERECTOR (CURRENT) USE OF ASPIRIN 01/09/2016 MICKY HAQ MD Ot Z79.899 OTHER WIRE FENCE ERECTOR (CURRENT) DRUG THERAPY 01/09/2016 MARYURI HOPKINS MD Ot Z01.818 ENCOUNTER FOR OTHER PREPROCEDURAL EXAMIN 01/09/2016 MARYURI HOPKINS MD Ot Z12.11 ENCOUNTER FOR SCREENING FOR MALIGNANT NE 01/09/2016 MARYURI HOPKINS MD Ot Z12.31 ENCNTR SCREEN MAMMOGRAM FOR MALIGNANT NE 02/08/2016 MICKY HAQ MD Ot 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, INTRA 02/08/2016 MICKY HAQ MD Ot E11.9 TYPE 2 DIABETES MELLITUS WITHOUT COMPLIC 02/08/2016 MICKY HAQ MD Ot Z79.82 ALF (CURRENT) USE OF ASPIRIN 02/08/2016 MICKY HAQ MD Ot Z79.899 OTHER WIRE FENCE ERECTOR (CURRENT) DRUG THERAPY 02/13/2016 MICKY HAQ MD, Ot 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, INTRA 02/13/2016 MICKY HAQ MD, Ot E11.9 TYPE 2 DIABETES MELLITUS WITHOUT COMPLIC 02/13/2016 MICKY HAQ MD, Ot Z79.82 ALF (CURRENT) USE OF ASPIRIN 02/13/2016 MICKY HAQ MD, Ot Z79.899 OTHER ALF (CURRENT) DRUG THERAPY 03/31/2016 MICKY HAQ MD, Ot 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, INTRA 03/31/2016 MICKY HAQ MD Ot E11.9 TYPE 2 DIABETES MELLITUS WITHOUT COMPLIC 03/31/2016 MICKY HAQ MD, Ot Z79.82 ALF (CURRENT) USE OF ASPIRIN 03/31/2016 MICKY HAQ MD, Ot Z79.899 OTHER ALF (CURRENT) DRUG THERAPY 04/01/2016 MICKY HAQ MD, Ot 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, INTRA 04/01/2016 MICKY HAQ MD Ot E11.9 TYPE 2 DIABETES MELLITUS WITHOUT COMPLIC 04/01/2016 MICKY HAQ MD, Ot Z79.82 WIRE FENCE ERECTOR (CURRENT) USE OF ASPIRIN 04/01/2016 MICKY HAQ MD Ot Z79.899 OTHER WIRE FENCE ERECTOR (CURRENT) DRUG THERAPY 05/16/2016 Ot 202.82 LYMPHOMAS NEC THORAX 05/16/2016 Ot 250.00 DIAB KENDAL WO COMPL, TYPE II OR UNSPEC TY 05/16/2016 Ot V58.66 LONG-TERM ( CURRENT) USE OF ASPIRIN 05/16/2016 Ot V58.69 OTH MED,LT, CURRENT USE 05/16/2016 Ot 202.82 LYMPHOMAS NEC THORAX 05/16/2016 Ot 250.00 DIAB KENDAL WO COMPL, TYPE II OR UNSPEC TY 05/16/2016 Ot 202.82 LYMPHOMAS NEC THORAX 05/16/2016 Ot 250.00 DIAB KENDAL WO COMPL, TYPE II OR UNSPEC TY 05/16/2016 Ot 288.50 LEUKOCYTOPENIA, UNSPECIFIED 05/16/2016 Ot V58.66 LONG-TERM ( CURRENT) USE OF ASPIRIN 05/16/2016 Ot V58.69 OTH MED,LT, CURRENT USE 05/16/2016 Ot V87.41 PERSONAL HISTORY OF ANTINEOPLASTIC CHEMO 05/16/2016 Ot V76.12 OTH SCREEN MAMMO-MALIGN NEOPLASM OF LV 05/16/2016 Ot 202.82 LYMPHOMAS NEC THORAX 05/16/2016 Ot 250.00 DIAB KENDAL WO COMPL, TYPE II OR UNSPEC TY 05/16/2016 Ot V58.66 LONG-TERM ( CURRENT) USE OF ASPIRIN 05/16/2016 Ot V58.69 OTH MED,LT, CURRENT USE 05/16/2016 Ot V87.41 PERSONAL HISTORY OF ANTINEOPLASTIC CHEMO 05/16/2016 Ot V49.81 ASYMPT POSTMENOPAUSAL STATUS (AGE-RELATE 05/16/2016 Ot V82.81 SCREENING FOR OSTEOPOROSIS 05/16/2016 Ot V76.12 OTH SCREEN MAMMO-MALIGN NEOPLASM OF LV 05/16/2016 MICKY HAQ MD Ot 202.82 LYMPHOMAS NEC THORAX 05/16/2016 MICKY HAQ MD Ot 250.00 DIAB KENDAL WO COMPL, TYPE II OR UNSPEC TY 05/16/2016 MICKY HAQ MD Ot V58.66 LONG-TERM (CURRENT) USE OF ASPIRIN 05/16/2016 MICKY HAQ MD Ot V58.69 OTH MED,LT,CURRENT USE 05/16/2016 MICKY HAQ MD Ot V87.41 PERSONAL HISTORY OF ANTINEOPLASTIC CHEMO 05/16/2016 MICKY HAQ MD Ot 202.82 LYMPHOMAS NEC THORAX 05/16/2016 MICKY HAQ MD Ot 250.00 DIAB KENDAL WO COMPL, TYPE II OR UNSPEC TY 05/16/2016 MICKY HAQ MD Ot V58.66 LONG-TERM (CURRENT) USE OF ASPIRIN 05/16/2016 MICKY HAQ MD Ot V58.69 OTH MED,LT,CURRENT USE 05/16/2016 MICKY HAQ MD Ot V87.41 PERSONAL HISTORY OF ANTINEOPLASTIC CHEMO 05/16/2016 MICKY HAQ MD Ot 202.82 LYMPHOMAS NEC THORAX 05/16/2016 MICKY HAQ MD Ot 250.00 DIAB KENDAL WO COMPL, TYPE II OR UNSPEC TY 05/16/2016 MICKY HAQ MD Ot V58.66 LONG-TERM (CURRENT) USE OF ASPIRIN 05/16/2016 MICKY HAQ MD Ot V58.69 OTH MED,LT,CURRENT USE 05/16/2016 MICKY HAQ MD Ot V87.41 PERSONAL HISTORY OF ANTINEOPLASTIC CHEMO 05/16/2016 MARYURI HOPKINS MD Ot 715.35 LOC OSTEOARTH NOS-PELVIS 05/16/2016 MARYURI HOPKINS MD Ot V76.12 OTH SCREEN MAMMO-MALIGN NEOPLASM OF LV 05/16/2016 MICKY HAQ MD Ot 202.82 LYMPHOMAS NEC THORAX 05/16/2016 MICKY HAQ MD Ot 250.00 DIAB KENDAL WO COMPL, TYPE II OR UNSPEC TY 05/16/2016 MICKY HAQ MD Ot V58.66 LONG-TERM (CURRENT) USE OF ASPIRIN 05/16/2016 MICKY HAQ MD Ot V58.69 OTH MED,LT,CURRENT USE 05/16/2016 MICKY HAQ MD Ot V87.41 PERSONAL HISTORY OF ANTINEOPLASTIC CHEMO 05/16/2016 MARYURI HOPKINS MD Ot 786.2 COUGH 05/16/2016 MARYURI HOPKINS MD Ot V10.79 HX-LYMPHATIC MALIGN NEC 05/16/2016 MICKY HAQ MD Ot 202.82 LYMPHOMAS NEC THORAX 05/16/2016 MICKY HAQ MD Ot 250.00 DIAB KENDAL WO COMPL, TYPE II OR UNSPEC TY 05/16/2016 MICKY HAQ MD Ot V58.66 LONG-TERM (CURRENT) USE OF ASPIRIN 05/16/2016 MICKY HAQ MD Ot V58.69 OTH MED,LT,CURRENT USE 05/16/2016 MICKY HAQ MD Ot V87.41 PERSONAL HISTORY OF ANTINEOPLASTIC CHEMO 05/16/2016 MARYURI HOPKINS MD Ot V76.12 OTH SCREEN MAMMO-MALIGN NEOPLASM OF LV 05/16/2016 MICKY HAQ MD Ot 202.82 LYMPHOMAS NEC THORAX 05/16/2016 KAYKAY HAQ MDTANNER Ot 250.00 DIAB KENDAL WO COMPL, TYPE II OR UNSPEC TY 05/16/2016 MICKY HAQ MD Ot 709.9 SKIN DISORDER NOS 05/16/2016 MICKY HAQ MD, Ot V58.66 LONG-TERM (CURRENT) USE OF ASPIRIN 05/16/2016 MICKY HAQ MD, Ot V58.69 OTH MED,LT,CURRENT USE 05/16/2016 MICKY HAQ MD, Ot V87.41 PERSONAL HISTORY OF ANTINEOPLASTIC CHEMO 05/16/2016 MARYURI HOPKINS MD Ot Z01.818 ENCOUNTER FOR OTHER PREPROCEDURAL EXAMIN 05/16/2016 MARYURI HOPKINS MD Ot Z12.11 ENCOUNTER FOR SCREENING FOR MALIGNANT NE 05/16/2016 MARYURI HOPKINS MD, Ot Z12.31 ENCNTR SCREEN MAMMOGRAM FOR MALIGNANT NE 05/16/2016 MICKY HAQ MD, Ot 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, INTRA 05/16/2016 MICKY HAQ MD, Ot E11.9 TYPE 2 DIABETES MELLITUS WITHOUT COMPLIC 05/16/2016 MICKY HAQ MD, Ot Z79.82 WIRE FENCE ERECTOR (CURRENT) USE OF ASPIRIN 05/16/2016 MICKY HAQ MD Ot Z79.899 OTHER ALF (CURRENT) DRUG THERAPY 07/02/2016 MICKY HAQ MD, Ot 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, INTRA 07/02/2016 MICKY HAQ MD, Ot E11.9 TYPE 2 DIABETES MELLITUS WITHOUT COMPLIC 07/02/2016 MICKY HAQ MD, Ot Z79.82 ALF (CURRENT) USE OF ASPIRIN 07/02/2016 MICKY HAQ MD Ot Z79.899 OTHER WIRE FENCE ERECTOR (CURRENT) DRUG THERAPY 08/09/2016 MICKY HAQ MD, Ot 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, INTRA 08/09/2016 MICKY HAQ MD, Ot E11.9 TYPE 2 DIABETES MELLITUS WITHOUT COMPLIC 08/09/2016 MICKY HAQ MD Ot Z79.82 WIRE FENCE ERECTOR (CURRENT) USE OF ASPIRIN 08/09/2016 MICKY HAQ MD, Ot Z79.899 OTHER ALF (CURRENT) DRUG THERAPY 08/21/2016 MICKY HAQ MD, Ot 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, INTRA 08/21/2016 MICKY HAQ MD Ot E11.9 TYPE 2 DIABETES MELLITUS WITHOUT COMPLIC 08/21/2016 MICKY HAQ MD Ot Z79.82 WIRE FENCE ERECTOR (CURRENT) USE OF ASPIRIN 08/21/2016 MICKY HAQ MD Ot Z79.899 OTHER ALF (CURRENT) DRUG THERAPY 09/05/2016 Ot 202.82 LYMPHOMAS NEC THORAX 09/05/2016 Ot 250.00 DIAB KENDAL WO COMPL, TYPE II OR UNSPEC TY 09/05/2016 Ot 288.50 LEUKOCYTOPENIA, UNSPECIFIED 09/05/2016 Ot V58.66 LONG-TERM ( CURRENT) USE OF ASPIRIN 09/05/2016 Ot V58.69 OTH MED,LT, CURRENT USE 09/05/2016 Ot V87.41 PERSONAL HISTORY OF ANTINEOPLASTIC CHEMO 09/05/2016 Ot V76.12 OTH SCREEN MAMMO-MALIGN NEOPLASM OF LV 09/05/2016 Ot 202.82 LYMPHOMAS NEC THORAX 09/05/2016 Ot 250.00 DIAB KENDAL WO COMPL, TYPE II OR UNSPEC TY 09/05/2016 Ot V58.66 LONG-TERM ( CURRENT) USE OF ASPIRIN 09/05/2016 Ot V58.69 OTH MED,LT, CURRENT USE 09/05/2016 Ot V87.41 PERSONAL HISTORY OF ANTINEOPLASTIC CHEMO 09/05/2016 Ot V49.81 ASYMPT POSTMENOPAUSAL STATUS (AGE-RELATE 09/05/2016 Ot V82.81 SCREENING FOR OSTEOPOROSIS 09/05/2016 Ot V76.12 OTH SCREEN MAMMO-MALIGN NEOPLASM OF LV 09/05/2016 MICKY HAQ MD Ot 202.82 LYMPHOMAS NEC THORAX 09/05/2016 MICKY HAQ MD Ot 250.00 DIAB KENDAL WO COMPL, TYPE II OR UNSPEC TY 09/05/2016 MICKY HAQ MD Ot V58.66 LONG-TERM (CURRENT) USE OF ASPIRIN 09/05/2016 MICKY HAQ MD Ot V58.69 OTH MED,LT,CURRENT USE 09/05/2016 MICKY HAQ MD Ot V87.41 PERSONAL HISTORY OF ANTINEOPLASTIC CHEMO 09/05/2016 MICKY HAQ MD Ot 202.82 LYMPHOMAS NEC THORAX 09/05/2016 MICKY HAQ MD Ot 250.00 DIAB KENDAL WO COMPL, TYPE II OR UNSPEC TY 09/05/2016 MICKY HAQ MD Ot V58.66 LONG-TERM (CURRENT) USE OF ASPIRIN 09/05/2016 MICKY HAQ MD Ot V58.69 OTH MED,LT,CURRENT USE 09/05/2016 MICKY HAQ MD Ot V87.41 PERSONAL HISTORY OF ANTINEOPLASTIC CHEMO 09/05/2016 MICKY HAQ MD Ot 202.82 LYMPHOMAS NEC THORAX 09/05/2016 MICKY HAQ MD Ot 250.00 DIAB KENDAL WO COMPL, TYPE II OR UNSPEC TY 09/05/2016 MICKY HAQ MD Ot V58.66 LONG-TERM (CURRENT) USE OF ASPIRIN 09/05/2016 MICKY HAQ MD Ot V58.69 OTH MED,LT,CURRENT USE 09/05/2016 MICKY HAQ MD Ot V87.41 PERSONAL HISTORY OF ANTINEOPLASTIC CHEMO 09/05/2016 MARYURI HOPKINS MD Ot 715.35 LOC OSTEOARTH NOS-PELVIS 09/05/2016 MARYURI HOPKINS MD Ot V76.12 OTH SCREEN MAMMO-MALIGN NEOPLASM OF LV 09/05/2016 MICKY HAQ MD Ot 202.82 LYMPHOMAS NEC THORAX 09/05/2016 MICKY HAQ MD Ot 250.00 DIAB KENDAL WO COMPL, TYPE II OR UNSPEC TY 09/05/2016 MICKY HAQ MD Ot V58.66 LONG-TERM (CURRENT) USE OF ASPIRIN 09/05/2016 MICKY HAQ MD Ot V58.69 OTH MED,LT,CURRENT USE 09/05/2016 MICKY HAQ MD Ot V87.41 PERSONAL HISTORY OF ANTINEOPLASTIC CHEMO 09/05/2016 MARYURI HOPKINS MD Ot 786.2 COUGH 09/05/2016 MARYURI HOPKINS MD Ot V10.79 HX-LYMPHATIC MALIGN NEC 09/05/2016 MICKY HAQ MD Ot 202.82 LYMPHOMAS NEC THORAX 09/05/2016 MICKY HAQ MD Ot 250.00 DIAB KENDAL WO COMPL, TYPE II OR UNSPEC TY 09/05/2016 MICKY HAQ MD Ot V58.66 LONG-TERM (CURRENT) USE OF ASPIRIN 09/05/2016 MICKY HAQ MD Ot V58.69 OTH MED,LT,CURRENT USE 09/05/2016 MICKY HAQ MD, Ot V87.41 PERSONAL HISTORY OF ANTINEOPLASTIC CHEMO 09/05/2016 MARYURI HOPKINS MD Ot V76.12 OTH SCREEN MAMMO-MALIGN NEOPLASM OF LV 09/05/2016 MICKY HAQ MD Ot 202.82 LYMPHOMAS NEC THORAX 09/05/2016 MICKY HAQ MD Ot 250.00 DIAB KENDAL WO COMPL, TYPE II OR UNSPEC TY 09/05/2016 MICKY HAQ MD Ot 709.9 SKIN DISORDER NOS 09/05/2016 MICKY HAQ MD, Ot V58.66 LONG-TERM (CURRENT) USE OF ASPIRIN 09/05/2016 MICKY HAQ MD, Ot V58.69 OTH MED,LT,CURRENT USE 09/05/2016 MICKY HAQ MD, Ot V87.41 PERSONAL HISTORY OF ANTINEOPLASTIC CHEMO 09/05/2016 MARYURI HOPKINS MD Ot Z01.818 ENCOUNTER FOR OTHER PREPROCEDURAL EXAMIN 09/05/2016 MARYURI HOPKINS MD Ot Z12.11 ENCOUNTER FOR SCREENING FOR MALIGNANT NE 09/05/2016 MARYURI HOPKINS MD Ot Z12.31 ENCNTR SCREEN MAMMOGRAM FOR MALIGNANT NE 09/05/2016 MICKY HAQ MD Ot 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, INTRA 09/05/2016 MICKY HAQ MD Ot E11.9 TYPE 2 DIABETES MELLITUS WITHOUT COMPLIC 09/05/2016 MICKY HAQ MD, Ot Z79.82 WIRE FENCE ERECTOR (CURRENT) USE OF ASPIRIN 09/05/2016 MICKY HAQ MD Ot Z79.899 OTHER ALF (CURRENT) DRUG THERAPY 09/05/2016 Eusebio PELAYO MD Ot R07.9 CHEST PAIN, UNSPECIFIED 09/06/2016 Eusebio PELAYO MD Ot R07.9 CHEST PAIN, UNSPECIFIED 09/06/2016 Eusebio PELAYO MD Ot E13.9 OTHER SPECIFIED DIABETES MELLITUS WITHOU 09/06/2016 Eusebio PELAYO MD Ot E78.5 HYPERLIPIDEMIA, UNSPECIFIED 09/06/2016 Eusebio PELAYO MD Ot R07.9 CHEST PAIN, UNSPECIFIED 09/11/2016 Eusebio PELAYO MD Ot E13.9 OTHER SPECIFIED DIABETES MELLITUS WITHOU 09/11/2016 PIERCE SWEENEY, Eusebio SLAUGHTER Ot E78.5 HYPERLIPIDEMIA, UNSPECIFIED 09/11/2016 PIERCE SWEENEY, Eusebio SLAUGHTER Ot R07.9 CHEST PAIN, UNSPECIFIED 09/20/2016 PIERCE SWEENEY, Eusebio SLAUGHTER Ot E13.9 OTHER SPECIFIED DIABETES MELLITUS WITHOU 09/20/2016 PIERCE SWEENEY, Eusebio SLAUGHTER Ot E78.5 HYPERLIPIDEMIA, UNSPECIFIED 09/20/2016 PIERCE SWEENEY, Eusebio SLAUGHTER Ot R07.9 CHEST PAIN, UNSPECIFIED 2016 PIERCE SWEENEY, Eusebio SLAUGHTER Ot E13.9 OTHER SPECIFIED DIABETES MELLITUS WITHOU 2016 PIERCE SWEENEY, Eusebio SLAUGHTER Ot E78.5 HYPERLIPIDEMIA, UNSPECIFIED 2016 PIERCE SWEENEY, Eusebio SLAUGHTER Ot R07.9 CHEST PAIN, UNSPECIFIED 09/29/2016 MICKY HAQ MD Ot 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, INTRA 09/29/2016 MICKY HAQ MD Ot E11.9 TYPE 2 DIABETES MELLITUS WITHOUT COMPLIC 09/29/2016 MICKY HAQ MD Ot Z79.82 WIRE FENCE ERECTOR (CURRENT) USE OF ASPIRIN 09/29/2016 MICKY HAQ MD Ot Z79.899 OTHER ALF (CURRENT) DRUG THERAPY 09/30/2016 MICKY HAQ MD Ot 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, INTRA 09/30/2016 MICKY HAQ MD Ot E11.9 TYPE 2 DIABETES MELLITUS WITHOUT COMPLIC 09/30/2016 MICYK HAQ MD Ot Z79.82 ALF (CURRENT) USE OF ASPIRIN 09/30/2016 MICKY HAQ MD Ot Z79.899 OTHER ALF (CURRENT) DRUG THERAPY 10/02/2016 PIERCE SWEENEY, Eusebio SLAUGHTER Ot E13.9 OTHER SPECIFIED DIABETES MELLITUS WITHOU 10/02/2016 PIERCE SWEENEY, Eusebio SLAUGHTER Ot E78.5 HYPERLIPIDEMIA, UNSPECIFIED 10/02/2016 PIERCE SWEENEY, Eusebio SLAUGHTER Ot R07.9 CHEST PAIN, UNSPECIFIED 10/10/2016 PIERCE SWEENEY, M KASANDRA Ot E13.9 OTHER SPECIFIED DIABETES MELLITUS WITHOU 10/10/2016 PIERCE SWEENEY, M KASANDRA Ot E78.5 HYPERLIPIDEMIA, UNSPECIFIED 10/10/2016 PIERCE SWEENEY, M KASANDRA Ot R07.9 CHEST PAIN, UNSPECIFIED 10/16/2016 PIERCE SWEENEY, M KASANDRA Ot E13.9 OTHER SPECIFIED DIABETES MELLITUS WITHOU 10/16/2016 PIERCE SWEENEY, M KASANDRA Ot E78.5 HYPERLIPIDEMIA, UNSPECIFIED 10/16/2016 PIERCE SWEENEY, M KASANDRA Ot R07.9 CHEST PAIN, UNSPECIFIED 12/23/2016 MARYURI HOPKINS MD, Ot Z12.31 ENCNTR SCREEN MAMMOGRAM FOR MALIGNANT NE 12/27/2016 MARYURI HOPKINS MD, Ot Z12.31 ENCNTR SCREEN MAMMOGRAM FOR MALIGNANT NE 12/31/2016 MICKY HAQ MD Ot 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, INTRA 12/31/2016 MICKY HAQ MD Ot E11.9 TYPE 2 DIABETES MELLITUS WITHOUT COMPLIC 12/31/2016 MICKY HAQ MD Ot Z79.82 ALF (CURRENT) USE OF ASPIRIN 12/31/2016 MICKY HAQ MD Ot Z79.899 OTHER WIRE FENCE ERECTOR (CURRENT) DRUG THERAPY 12/31/2016 MARYURI HOPKINS MD Ot Z12.31 ENCNTR SCREEN MAMMOGRAM FOR MALIGNANT NE 12/31/2016 Ot E78.5 HYPERLIPIDEMIA, UNSPECIFIED 12/31/2016 MARYURI HOPKINS MD Ot Z12.31 ENCNTR SCREEN MAMMOGRAM FOR MALIGNANT NE 12/31/2016 Ot E78.5 HYPERLIPIDEMIA, UNSPECIFIED 12/31/2016 MARYURI HOPKINS MD Ot Z12.31 ENCNTR SCREEN MAMMOGRAM FOR MALIGNANT NE 12/31/2016 MARYURI HOPKINS MD Ot Z12.31 ENCNTR SCREEN MAMMOGRAM FOR MALIGNANT NE 12/31/2016 Ot E78.5 HYPERLIPIDEMIA, UNSPECIFIED 12/31/2016 MARYURI HOPKINS MD Ot Z12.31 ENCNTR SCREEN MAMMOGRAM FOR MALIGNANT NE 12/31/2016 Ot E78.5 HYPERLIPIDEMIA, UNSPECIFIED 12/31/2016 MARYURI HOPKINS MD Ot Z12.31 ENCNTR SCREEN MAMMOGRAM FOR MALIGNANT NE 12/31/2016 Ot E78.5 HYPERLIPIDEMIA, UNSPECIFIED 12/31/2016 Ot E78.5 HYPERLIPIDEMIA, UNSPECIFIED 12/31/2016 MICKY HAQ MD, Ot 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, INTRA 12/31/2016 MICKY HAQ MD Ot E11.9 TYPE 2 DIABETES MELLITUS WITHOUT COMPLIC 12/31/2016 MICKY HAQ MD, Ot Z79.82 WIRE FENCE ERECTOR (CURRENT) USE OF ASPIRIN 12/31/2016 MICKY HAQ MD, Ot Z79.899 OTHER ALF (CURRENT) DRUG THERAPY 01/27/2017 KELLIE SWEENEY, MARYURI Lopez Ot Z12.31 ENCNTR SCREEN MAMMOGRAM FOR MALIGNANT NE 01/27/2017 Ot E11.9 TYPE 2 DIABETES MELLITUS WITHOUT COMPLIC 01/27/2017 Ot E78.5 HYPERLIPIDEMIA, UNSPECIFIED 01/27/2017 Ot I10 ESSENTIAL ( PRIMARY) HYPERTENSION 02/06/2017 MICKY HAQ MD, Ot 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, INTRA 02/06/2017 MICKY HAQ MD, Ot E11.9 TYPE 2 DIABETES MELLITUS WITHOUT COMPLIC 02/06/2017 MICKY HAQ MD, Ot Z79.82 WIRE FENCE ERECTOR (CURRENT) USE OF ASPIRIN 02/06/2017 MICKY HAQ MD Ot Z79.899 OTHER ALF (CURRENT) DRUG THERAPY 02/12/2017 MICKY HAQ MD, Ot 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, INTRA 02/12/2017 MICKY HAQ MD, Ot E11.9 TYPE 2 DIABETES MELLITUS WITHOUT COMPLIC 02/12/2017 MICKY HAQ MD Ot Z79.82 WIRE FENCE ERECTOR (CURRENT) USE OF ASPIRIN 02/12/2017 MICKY HAQ MD Ot Z79.899 OTHER WIRE FENCE ERECTOR (CURRENT) DRUG THERAPY 03/30/2017 MICKY HAQ MD, Ot 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, INTRA 03/30/2017 MICKY HAQ MD, Ot E11.9 TYPE 2 DIABETES MELLITUS WITHOUT COMPLIC 03/30/2017 MICKY HAQ MD, Ot Z79.82 WIRE FENCE ERECTOR (CURRENT) USE OF ASPIRIN 03/30/2017 MICKY HAQ MD, Ot Z79.899 OTHER WIRE FENCE ERECTOR (CURRENT) DRUG THERAPY 04/05/2017 MICKY HAQ MD, Ot 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, INTRA 04/05/2017 MICKY HAQ MD Ot E11.9 TYPE 2 DIABETES MELLITUS WITHOUT COMPLIC 04/05/2017 MICKY HAQ MD Ot Z79.82 ALF (CURRENT) USE OF ASPIRIN 04/05/2017 MICKY HAQ MD Ot Z79.899 OTHER WIRE FENCE ERECTOR (CURRENT) DRUG THERAPY 04/16/2017 Ot 202.82 LYMPHOMAS NEC THORAX 04/16/2017 Ot 250.00 DIAB KENDAL WO COMPL, TYPE II OR UNSPEC TY 04/16/2017 Ot V58.66 LONG-TERM ( CURRENT) USE OF ASPIRIN 04/16/2017 Ot V58.69 OTH MED,LT, CURRENT USE 04/16/2017 Ot V87.41 PERSONAL HISTORY OF ANTINEOPLASTIC CHEMO 04/16/2017 Ot V49.81 ASYMPT POSTMENOPAUSAL STATUS (AGE-RELATE 04/16/2017 Ot V82.81 SCREENING FOR OSTEOPOROSIS 04/16/2017 Ot V76.12 OTH SCREEN MAMMO-MALIGN NEOPLASM OF LV 04/16/2017 MICKY HAQ MD Ot 202.82 LYMPHOMAS NEC THORAX 04/16/2017 MICKY HAQ MD Ot 250.00 DIAB KENDAL WO COMPL, TYPE II OR UNSPEC TY 04/16/2017 MICKY HAQ MD Ot V58.66 LONG-TERM (CURRENT) USE OF ASPIRIN 04/16/2017 MICKY HAQ MD Ot V58.69 OTH MED,LT,CURRENT USE 04/16/2017 MICKY HAQ MD Ot V87.41 PERSONAL HISTORY OF ANTINEOPLASTIC CHEMO 04/16/2017 MICKY HAQ MD Ot 202.82 LYMPHOMAS NEC THORAX 04/16/2017 MICKY HAQ MD Ot 250.00 DIAB KENDAL WO COMPL, TYPE II OR UNSPEC TY 04/16/2017 MICKY HAQ MD Ot V58.66 LONG-TERM (CURRENT) USE OF ASPIRIN 04/16/2017 MICKY HAQ MD Ot V58.69 OTH MED,LT,CURRENT USE 04/16/2017 MICKY HAQ MD Ot V87.41 PERSONAL HISTORY OF ANTINEOPLASTIC CHEMO 04/16/2017 MICKY HAQ MD Ot 202.82 LYMPHOMAS NEC THORAX 04/16/2017 MICKY HAQ MD Ot 250.00 DIAB KENDAL WO COMPL, TYPE II OR UNSPEC TY 04/16/2017 MICKY HAQ MD Ot V58.66 LONG-TERM (CURRENT) USE OF ASPIRIN 04/16/2017 MICKY HAQ MD Ot V58.69 OTH MED,LT,CURRENT USE 04/16/2017 MICKY HAQ MD Ot V87.41 PERSONAL HISTORY OF ANTINEOPLASTIC CHEMO 04/16/2017 MARYURI HOPKINS MD Ot 715.35 LOC OSTEOARTH NOS-PELVIS 04/16/2017 MARYURI HOPKINS MD Ot V76.12 OTH SCREEN MAMMO-MALIGN NEOPLASM OF LV 04/16/2017 MICKY HAQ MD Ot 202.82 LYMPHOMAS NEC THORAX 04/16/2017 MICKY HAQ MD Ot 250.00 DIAB KENDAL WO COMPL, TYPE II OR UNSPEC TY 04/16/2017 MICKY HAQ MD Ot V58.66 LONG-TERM (CURRENT) USE OF ASPIRIN 04/16/2017 MICKY HAQ MD Ot V58.69 OTH MED,LT,CURRENT USE 04/16/2017 MICKY HAQ MD Ot V87.41 PERSONAL HISTORY OF ANTINEOPLASTIC CHEMO 04/16/2017 MARYURI HOPKINS MD Ot 786.2 COUGH 04/16/2017 MARYURI HOPKINS MD Ot V10.79 HX-LYMPHATIC MALIGN NEC 04/16/2017 MICKY HAQ MD Ot 202.82 LYMPHOMAS NEC THORAX 04/16/2017 MICKY HAQ MD Ot 250.00 DIAB KENDAL WO COMPL, TYPE II OR UNSPEC TY 04/16/2017 MICKY HAQ MD Ot V58.66 LONG-TERM (CURRENT) USE OF ASPIRIN 04/16/2017 MICKY HAQ MD Ot V58.69 OTH MED,LT,CURRENT USE 04/16/2017 MICKY HAQ MD Ot V87.41 PERSONAL HISTORY OF ANTINEOPLASTIC CHEMO 04/16/2017 MARYURI HOPKINS MD Ot V76.12 OTH SCREEN MAMMO-MALIGN NEOPLASM OF LV 04/16/2017 MICKY HAQ MD Ot 202.82 LYMPHOMAS NEC THORAX 04/16/2017 MICKY HAQ MD Ot 250.00 DIAB KENDAL WO COMPL, TYPE II OR UNSPEC TY 04/16/2017 MICKY HAQ MD Ot 709.9 SKIN DISORDER NOS 04/16/2017 MICKY HAQ MD, Ot V58.66 LONG-TERM (CURRENT) USE OF ASPIRIN 04/16/2017 MICKY HAQ MD, Ot V58.69 OTH MED,LT,CURRENT USE 04/16/2017 MICKY HAQ MD Ot V87.41 PERSONAL HISTORY OF ANTINEOPLASTIC CHEMO 04/16/2017 MARYURI HOPKINS MD Ot Z01.818 ENCOUNTER FOR OTHER PREPROCEDURAL EXAMIN 04/16/2017 MARYURI HOPKINS MD Ot Z12.11 ENCOUNTER FOR SCREENING FOR MALIGNANT NE 04/16/2017 MARYURI HOPKINS MD, Ot Z12.31 ENCNTR SCREEN MAMMOGRAM FOR MALIGNANT NE 04/16/2017 PIERCE SWEENEY, Eusebio SLAUGHTER Ot E13.9 OTHER SPECIFIED DIABETES MELLITUS WITHOU 04/16/2017 PIERCE SWEENEY, Eusebio SLAUGHTER Ot E78.5 HYPERLIPIDEMIA, UNSPECIFIED 04/16/2017 PIERCE SWEENEY, M KASANDRA Ot R07.9 CHEST PAIN, UNSPECIFIED 04/16/2017 PIERCE SWEENEY, M KASANDRA Ot E13.9 OTHER SPECIFIED DIABETES MELLITUS WITHOU 04/16/2017 PIERCE SWEENEY, Eusebio SLAUGHTER Ot E78.5 HYPERLIPIDEMIA, UNSPECIFIED 04/16/2017 PIERCE SWEENEY, Eusebio SLAUGHTER Ot R07.9 CHEST PAIN, UNSPECIFIED 04/16/2017 MARYURI HOPKINS MD Ot Z12.31 ENCNTR SCREEN MAMMOGRAM FOR MALIGNANT NE 04/16/2017 Ot E11.9 TYPE 2 DIABETES MELLITUS WITHOUT COMPLIC 04/16/2017 Ot E78.5 HYPERLIPIDEMIA, UNSPECIFIED 04/16/2017 Ot I10 ESSENTIAL ( PRIMARY) HYPERTENSION 04/16/2017 MICKY HAQ MD Ot 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, INTRA 04/16/2017 MICKY HAQ MD Ot E11.9 TYPE 2 DIABETES MELLITUS WITHOUT COMPLIC 04/16/2017 MICKY HAQ MD Ot Z79.82 WIRE FENCE ERECTOR (CURRENT) USE OF ASPIRIN 04/16/2017 MICKY HAQ MD, Ot Z79.899 OTHER WIRE FENCE ERECTOR (CURRENT) DRUG THERAPY 04/30/2017 Ot 202.82 LYMPHOMAS NEC THORAX 04/30/2017 Ot 250.00 DIAB KENDAL WO COMPL, TYPE II OR UNSPEC TY 04/30/2017 Ot V58.66 LONG-TERM ( CURRENT) USE OF ASPIRIN 04/30/2017 Ot V58.69 OTH MED,LT, CURRENT USE 04/30/2017 Ot V87.41 PERSONAL HISTORY OF ANTINEOPLASTIC CHEMO 04/30/2017 Ot V49.81 ASYMPT POSTMENOPAUSAL STATUS (AGE-RELATE 04/30/2017 Ot V82.81 SCREENING FOR OSTEOPOROSIS 04/30/2017 Ot V76.12 OTH SCREEN MAMMO-MALIGN NEOPLASM OF LV 04/30/2017 MICKY HAQ MD Ot 202.82 LYMPHOMAS NEC THORAX 04/30/2017 MICKY HAQ MD Ot 250.00 DIAB KENDAL WO COMPL, TYPE II OR UNSPEC TY 04/30/2017 MICKY HAQ MD Ot V58.66 LONG-TERM (CURRENT) USE OF ASPIRIN 04/30/2017 MICKY HAQ MD Ot V58.69 OTH MED,LT,CURRENT USE 04/30/2017 MICKY HAQ MD Ot V87.41 PERSONAL HISTORY OF ANTINEOPLASTIC CHEMO 04/30/2017 MICKY HAQ MD Ot 202.82 LYMPHOMAS NEC THORAX 04/30/2017 MICKY HAQ MD Ot 250.00 DIAB KENDAL WO COMPL, TYPE II OR UNSPEC TY 04/30/2017 MICKY HAQ MD Ot V58.66 LONG-TERM (CURRENT) USE OF ASPIRIN 04/30/2017 MICKY HAQ MD Ot V58.69 OTH MED,LT,CURRENT USE 04/30/2017 MICKY HAQ MD Ot V87.41 PERSONAL HISTORY OF ANTINEOPLASTIC CHEMO 04/30/2017 MICKY HAQ MD Ot 202.82 LYMPHOMAS NEC THORAX 04/30/2017 MICKY HAQ MD Ot 250.00 DIAB KENDAL WO COMPL, TYPE II OR UNSPEC TY 04/30/2017 MICKY HAQ MD Ot V58.66 LONG-TERM (CURRENT) USE OF ASPIRIN 04/30/2017 MICKY HAQ MD Ot V58.69 OTH MED,LT,CURRENT USE 04/30/2017 MICKY HAQ MD Ot V87.41 PERSONAL HISTORY OF ANTINEOPLASTIC CHEMO 04/30/2017 MARYURI HOPKINS MD Ot 715.35 LOC OSTEOARTH NOS-PELVIS 04/30/2017 MARYURI HOPKINS MD Ot V76.12 OTH SCREEN MAMMO-MALIGN NEOPLASM OF LV 04/30/2017 MICKY HAQ MD Ot 202.82 LYMPHOMAS NEC THORAX 04/30/2017 MICKY HAQ MD Ot 250.00 DIAB KENDAL WO COMPL, TYPE II OR UNSPEC TY 04/30/2017 MICKY HAQ MD Ot V58.66 LONG-TERM (CURRENT) USE OF ASPIRIN 04/30/2017 MICKY HAQ MD Ot V58.69 OTH MED,LT,CURRENT USE 04/30/2017 MICKY HAQ MD Ot V87.41 PERSONAL HISTORY OF ANTINEOPLASTIC CHEMO 04/30/2017 MARYURI HOPKINS MD Ot 786.2 COUGH 04/30/2017 MARYURI HOPKINS MD Ot V10.79 HX-LYMPHATIC MALIGN NEC 04/30/2017 MICKY HAQ MD Ot 202.82 LYMPHOMAS NEC THORAX 04/30/2017 MICKY HAQ MD Ot 250.00 DIAB KEDNAL WO COMPL, TYPE II OR UNSPEC TY 04/30/2017 MICKY HAQ MD Ot V58.66 LONG-TERM (CURRENT) USE OF ASPIRIN 04/30/2017 MICKY HAQ MD Ot V58.69 OTH MED,LT,CURRENT USE 04/30/2017 MICKY HAQ MD Ot V87.41 PERSONAL HISTORY OF ANTINEOPLASTIC CHEMO 04/30/2017 MARYURI HOPKINS MD Ot V76.12 OTH SCREEN MAMMO-MALIGN NEOPLASM OF LV 04/30/2017 MICKY HAQ MD Ot 202.82 LYMPHOMAS NEC THORAX 04/30/2017 MICKY HAQ MD Ot 250.00 DIAB KENDAL WO COMPL, TYPE II OR UNSPEC TY 04/30/2017 MICKY HAQ MD Ot 709.9 SKIN DISORDER NOS 04/30/2017 MICKY HAQ MD Ot V58.66 LONG-TERM (CURRENT) USE OF ASPIRIN 04/30/2017 MICKY HAQ MD Ot V58.69 OTH MED,LT,CURRENT USE 04/30/2017 MICKY HAQ MD Ot V87.41 PERSONAL HISTORY OF ANTINEOPLASTIC CHEMO 04/30/2017 MARYURI HOPKINS MD Ot Z01.818 ENCOUNTER FOR OTHER PREPROCEDURAL EXAMIN 04/30/2017 MARYURI HOPKINS MD Ot Z12.11 ENCOUNTER FOR SCREENING FOR MALIGNANT NE 04/30/2017 HOPKINS MD, MARYURI D Ot Z12.31 ENCNTR SCREEN MAMMOGRAM FOR MALIGNANT NE 04/30/2017 PIERCE SWEENEY, M KASANDRA Ot E13.9 OTHER SPECIFIED DIABETES MELLITUS WITHOU 04/30/2017 PIERCE SWEENEY, M KASANDRA Ot E78.5 HYPERLIPIDEMIA, UNSPECIFIED 04/30/2017 PIERCE SWEENEY, M KASANDRA Ot R07.9 CHEST PAIN, UNSPECIFIED 04/30/2017 PIERCE SWEENEY, M KASANDRA Ot E13.9 OTHER SPECIFIED DIABETES MELLITUS WITHOU 04/30/2017 PIERCE SWEENEY, M KASANDRA Ot E78.5 HYPERLIPIDEMIA, UNSPECIFIED 04/30/2017 PIERCE SWEENEY, M KASANDRA Ot R07.9 CHEST PAIN, UNSPECIFIED 04/30/2017 KELLIE SWEENEY, MARYURI Lopez Ot Z12.31 ENCNTR SCREEN MAMMOGRAM FOR MALIGNANT NE 04/30/2017 Ot E11.9 TYPE 2 DIABETES MELLITUS WITHOUT COMPLIC 04/30/2017 Ot E78.5 HYPERLIPIDEMIA, UNSPECIFIED 04/30/2017 Ot I10 ESSENTIAL ( PRIMARY) HYPERTENSION 04/30/2017 MICKY HAQ MD Ot 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, INTRA 04/30/2017 MICKY HAQ MD Ot E11.9 TYPE 2 DIABETES MELLITUS WITHOUT COMPLIC 04/30/2017 MICKY HAQ MD Ot Z79.82 ALF (CURRENT) USE OF ASPIRIN 04/30/2017 MICKY HAQ MD Ot Z79.899 OTHER ALF (CURRENT) DRUG THERAPY 07/01/2017 MICKY HAQ MD Ot 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, INTRA 07/01/2017 MICKY HAQ MD Ot E11.9 TYPE 2 DIABETES MELLITUS WITHOUT COMPLIC 07/01/2017 MICKY HAQ MD Ot Z79.82 ALF (CURRENT) USE OF ASPIRIN 07/01/2017 MICKY HAQ MD Ot Z79.899 OTHER WIRE FENCE ERECTOR (CURRENT) DRUG THERAPY 08/12/2017 MICKY HAQ MD Ot 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 Results Test Result Range Influenza virus A and B antigen detection - 09/27/17 23:30 FLU RESULT NEGATIVE FOR INFLUENZA A AND B ANTIGENS BY IA NRG Encounters ACCT No. Visit Date/Time Discharge Status Pt. Type Provider Facility Loc./Unit Complaint [id number] 06/30/2017 08:19:00 06/30/2017 23:59:59 CLS Outpatient MICKY HAQ MD [facility] ONC [id number] 12/30/2016 07:59:00 03/30/2017 00:01:00 DIS Outpatient MICKY HAQ MD [facility] ONC [id number] 12/30/2016 07:30:00 12/30/2016 23:59:59 CLS Outpatient MARYURI HOPKINS MD [facility] RAD Z12.31 SCREENING [id number] 07/01/2016 09:10:00 09/29/2016 00:01:00 DIS Outpatient MICKY HAQ MD [facility] ONC [id number] 09/19/2016 11:10:00 09/19/2016 23:59:59 CLS Outpatient Eusebio PELAYO MD [facility] CARD CHEST PAIN SYNDROME, DIABETES [id number] 09/05/2016 07:43:00 09/05/2016 23:59:59 CLS Outpatient Eusebio PELAYO MD [facility] CARD CHEST PAIN SYNDROME, DIABETES [id number] 01/01/2016 09:23:00 03/31/2016 00:01:00 DIS Outpatient MICKY HAQ MD [facility] ONC [id number] 12/05/2015 10:16:00 12/05/2015 23:59:59 CLS Outpatient MARYURI HOPKINS MD [facility] RAD SCREENING [id number] 10/13/2015 08:52:00 10/13/2015 11:50:00 DIS Outpatient MARYURI HOPKINS MD [facility] SDC DIAGNOSTIC COLONOSCOPY FOR CHANGE BOWEL HABBITS [id number] 10/12/2015 09:00:00 10/12/2015 23:59:59 CLS Outpatient MARYURI HOPKINS MD [facility] PREOP SCREENING [id number] 07/03/2015 08:46:00 10/01/2015 00:01:00 DIS Outpatient MICKY HAQ MD [facility] ONC [id number] 01/02/2015 08:37:00 01/02/2015 23:59:59 CLS Outpatient MICKY HAQ MD [facility] ONC [id number] 08/10/2014 08:28:00 08/10/2014 23:59:59 CLS Outpatient MARYURI HOPKINS MD [facility] RAD ROUTINE [id number] 07/11/2014 09:07:00 07/11/2014 23:59:59 CLS Outpatient MICKY HAQ MD [facility] ONC [id number] 05/25/2014 11:04:00 05/25/2014 23:59:59 CLS Outpatient MARYURI HOPKINS MD [facility] RAD HX OF LYMPHOMA, INCREASED COUGH [id number] 12/06/2013 08:37:00 12/06/2013 23:59:59 CLS Outpatient MICKY HAQ MD [facility] ONC [id number] 08/09/2013 08:35:00 08/09/2013 23:59:59 CLS Outpatient MARYURI HOPKINS MD [facility] RAD SCREENING [id number] 06/07/2013 08:43:00 06/07/2013 23:59:59 CLS Outpatient MICKY HAQ MD [facility] ONC [id number] 02/01/2013 08:34:00 02/01/2013 23:59:59 CLS Outpatient MICKY HAQ MD [facility] ONC [id number] 12/21/2012 08:40:00 12/21/2012 23:59:59 CLS Outpatient MICKY HAQ MD [facility] ONC [id number] 09/28/2017 00:00:00 Document Registration [id number] 12/30/2016 08:43:00 Document Registration [id number] 05/16/2015 16:13:00 Document Registration [id number] 05/16/2015 16:13:00 Document Registration [id number] 05/16/2015 16:12:00 Document Registration [id number] 05/16/2015 16:12:00 Document Registration [id number] 05/16/2015 16:12:00 Document Registration [id number] 05/16/2015 16:12:00 Document Registration [id number] 05/16/2015 16:12:00 Document Registration [id number] 05/16/2015 16:12:00 Document Registration [id number] 06/22/2012 08:44:00 Document Registration [id number] 12/10/2011 08:21:00 Document Registration [id number] 06/11/2011 10:15:00 Document Registration
== END 2017-09-28 00:40 | disposition home or self-care (01) ==
LOC: EDUNIT# 23:07 → ER 23:08
DX: J11.1 Influenza due to unidentified influenza virus with other respiratory manifestations (principal); J20.9 Acute bronchitis, unspecified; E78.00 Pure hypercholesterolemia, unspecified; I10 Essential (primary) hypertension; E11.9 Type 2 diabetes mellitus without complications; Z85.72 Personal history of non-Hodgkin lymphomas; Z92.21 Personal history of antineoplastic chemotherapy; Z98.890 Other specified postprocedural states
CPT/HCPCS: 87804; 96372; 99284

== ENCOUNTER 2017-12-29 08:23 | Outpatient (RCR) | payer MEDICARE, BC ==
[2017-12-22 08:46] LABS: BASOPHILS # (AUTO) 0.1 10^3/uL (0.0-0.1); BASOPHILS % (AUTO) 1 % (0-10); EOSINOPHILS # (AUTO) 0.2 10^3/uL (0.0-0.3); EOSINOPHILS % (AUTO) 3 % (0-10); HEMATOCRIT 46 % (35-52); HEMOGLOBIN 15.3 G/DL (11.5-16.0); LYMPHOCYTES # (AUTO) 1.8 X 10^3 (1.0-4.0); LYMPHOCYTES % (AUTO) 33 % (12-44); MEAN CORPUSCULAR HEMOGLOBIN 30 PG (25-34); MEAN CORPUSCULAR HGB CONC 33 G/DL (32-36); MEAN CORPUSCULAR VOLUME 91 FL (80-99); MEAN PLATELET VOLUME 8.9 FL (7.4-10.4); MONOCYTES # (AUTO) 0.7 X 10^3 (0.0-1.0); MONOCYTES % (AUTO) 12 % (0-12); NEUTROPHILS # (AUTO) 2.9 X 10^3 (1.8-7.8); NEUTROPHILS % (AUTO) 52 % (42-75); PLATELET COUNT 235 10^3/uL (130-400); RED BLOOD COUNT 5.05 10^6/uL (4.35-5.85); RED CELL DISTRIBUTION WIDTH 14.9 % (10.0-14.5); WHITE BLOOD COUNT 5.6 10^3/uL (4.3-11.0)
[2017-12-22 09:08] LABS: ALANINE AMINOTRANSFERASE 15 U/L (0-55); ALBUMIN 4.3 GM/DL (3.2-4.5); ALKALINE PHOSPHATASE 51 U/L (40-136); BILIRUBIN,TOTAL 0.6 MG/DL (0.1-1.0); BUN/CREATININE RATIO 18; CALCIUM 9.5 MG/DL (8.5-10.1); CARBON DIOXIDE 25 MMOL/L (21-32); CHLORIDE 105 MMOL/L (98-107); CREATININE SERUM 0.79 MG/DL (0.60-1.30); GFR ESTIMATED > 60; GLUCOSE 127 MG/DL (70-105); POTASSIUM 4.3 MMOL/L (3.6-5.0); SODIUM 139 MMOL/L (135-145); TOTAL PROTEIN 7.1 GM/DL (6.4-8.2)
[~2017-12-29 08:23] MED LIST changes: +AZIT500T PO; +BENZ-13 PO; +CEFD300C3 PO; +METH4TAB PO; +PIOG1TAB18 PO; -PIOG1TAB34 PO
== END 2018-03-22 | disposition home or self-care (01) ==
LOC: ONC 08:23
PROVIDERS: ATTEND Internal Medicine Hematology & Oncology
DX: C85.82 Other specified types of non-Hodgkin lymphoma, intrathoracic lymph nodes (principal); E11.9 Type 2 diabetes mellitus without complications; Z79.899 Other long term (current) drug therapy; Z79.82 Long term (current) use of aspirin
CPT/HCPCS: 36415; 80053; 83615; 85025; 99213

== ENCOUNTER 2018-06-29 08:52 | Outpatient (RCR) | payer MEDICARE, BC ==
[2018-06-22 09:28] LABS: BASOPHILS % (AUTO) 0 % (0-10); EOSINOPHILS # (AUTO) 0.1 10^3/uL (0.0-0.3); EOSINOPHILS % (AUTO) 3 % (0-10); HEMATOCRIT 46 % (35-52); HEMOGLOBIN 14.9 G/DL (11.5-16.0); LYMPHOCYTES # (AUTO) 1.6 X 10^3 (1.0-4.0); LYMPHOCYTES % (AUTO) 34 % (12-44); MEAN CORPUSCULAR HEMOGLOBIN 30 PG (25-34); MEAN CORPUSCULAR HGB CONC 33 G/DL (32-36); MEAN CORPUSCULAR VOLUME 92 FL (80-99); MEAN PLATELET VOLUME 8.6 FL (7.4-10.4); MONOCYTES # (AUTO) 0.6 X 10^3 (0.0-1.0); MONOCYTES % (AUTO) 13 % (0-12); NEUTROPHILS # (AUTO) 2.3 X 10^3 (1.8-7.8); NEUTROPHILS % (AUTO) 50 % (42-75); PLATELET COUNT 239 10^3/uL (130-400); RED CELL DISTRIBUTION WIDTH 14.9 % (10.0-14.5); WHITE BLOOD COUNT 4.6 10^3/uL (4.3-11.0)
[2018-06-22 09:30] LABS: SMEAR SCAN COMMENT N
[2018-06-22 09:48] LABS: ALANINE AMINOTRANSFERASE 13 U/L (0-55); ALBUMIN 4.2 GM/DL (3.2-4.5); ALKALINE PHOSPHATASE 58 U/L (40-136); BILIRUBIN,TOTAL 0.5 MG/DL (0.1-1.0); BUN/CREATININE RATIO 17; CALCIUM 9.8 MG/DL (8.5-10.1); CARBON DIOXIDE 24 MMOL/L (21-32); CHLORIDE 102 MMOL/L (98-107); CREATININE SERUM 0.75 MG/DL (0.60-1.30); GFR ESTIMATED > 60; GLUCOSE 114 MG/DL (70-105); POTASSIUM 4.4 MMOL/L (3.6-5.0); SODIUM 138 MMOL/L (135-145); TOTAL PROTEIN 7.2 GM/DL (6.4-8.2)
[~2018-06-29 08:52] MED LIST changes: -BENZ-13 PO; +BENZ100C18 PO
== END 2018-09-20 | disposition home or self-care (01) ==
LOC: ONC 08:52
PROVIDERS: ATTEND Internal Medicine Hematology & Oncology
DX: C85.82 Other specified types of non-Hodgkin lymphoma, intrathoracic lymph nodes (principal); E11.9 Type 2 diabetes mellitus without complications; Z79.899 Other long term (current) drug therapy; Z79.82 Long term (current) use of aspirin
CPT/HCPCS: 36415; 80053; 85025; 99213

== ENCOUNTER 2018-12-21 09:13 | Outpatient (RCR) | payer MEDICARE, BC ==
[~2018-12-21 09:13] MED LIST changes: -PIOG1TAB18 PO; +PIOG1TAB30 PO
[2018-12-21 09:59] LABS: BASOPHILS % (AUTO) 1 % (0-10); EOSINOPHILS # (AUTO) 0.2 10^3/uL (0.0-0.3); EOSINOPHILS % (AUTO) 4 % (0-10); HEMATOCRIT 45 % (35-52); HEMOGLOBIN 14.6 G/DL (11.5-16.0); LYMPHOCYTES # (AUTO) 1.7 X 10^3 (1.0-4.0); LYMPHOCYTES % (AUTO) 34 % (12-44); MEAN CORPUSCULAR HEMOGLOBIN 30 PG (25-34); MEAN CORPUSCULAR HGB CONC 33 G/DL (32-36); MEAN CORPUSCULAR VOLUME 92 FL (80-99); MEAN PLATELET VOLUME 8.8 FL (7.4-10.4); MONOCYTES # (AUTO) 0.5 X 10^3 (0.0-1.0); MONOCYTES % (AUTO) 10 % (0-12); NEUTROPHILS # (AUTO) 2.7 X 10^3 (1.8-7.8); NEUTROPHILS % (AUTO) 52 % (42-75); PLATELET COUNT 209 10^3/uL (130-400); RED CELL DISTRIBUTION WIDTH 14.4 % (10.0-14.5); WHITE BLOOD COUNT 5.1 10^3/uL (4.3-11.0)
[2018-12-21 10:19] LABS: ALANINE AMINOTRANSFERASE 17 U/L (0-55); ALKALINE PHOSPHATASE 52 U/L (40-136); BILIRUBIN,TOTAL 0.5 MG/DL (0.1-1.0); BUN/CREATININE RATIO 13; CARBON DIOXIDE 26 MMOL/L (21-32); CHLORIDE 104 MMOL/L (98-107); CREATININE SERUM 0.77 MG/DL (0.60-1.30); GFR ESTIMATED > 60; GLUCOSE 134 MG/DL (70-105); POTASSIUM 4.3 MMOL/L (3.6-5.0); SODIUM 139 MMOL/L (135-145); TOTAL PROTEIN 6.8 GM/DL (6.4-8.2)
== END 2019-03-21 | disposition home or self-care (01) ==
LOC: ONC 09:13
PROVIDERS: ATTEND Internal Medicine Hematology & Oncology
DX: C85.82 Other specified types of non-Hodgkin lymphoma, intrathoracic lymph nodes (principal); E11.9 Type 2 diabetes mellitus without complications; I10 Essential (primary) hypertension; E78.5 Hyperlipidemia, unspecified; Z79.899 Other long term (current) drug therapy; Z79.82 Long term (current) use of aspirin; Z92.21 Personal history of antineoplastic chemotherapy
CPT/HCPCS: 36415; 80053; 83615; 85025; 99213

== ENCOUNTER → 2019-05-24 | Outpatient (CLI) | payer MEDICARE, BC ==
--- NOTE | 2019-05-24 11:27 | Diagnostic Imaging Report ---
Indication: Routine screening. Comparison is made to prior mammogram from 02/09/2018 and 01/30/2017. 2-D and 3-D bilateral screening mammography was performed with CAD. Scattered fibroglandular densities are identified bilaterally. The parenchymal pattern is stable. No mass or malignant-appearing microcalcifications are seen. The axillae are unremarkable. IMPRESSION: BI-RADS Category 1 No mammographic features suspicious for malignancy are identified. ACR BI-RADS Category 1: Negative. Result letter will be mailed to the patient. Note: At least 10% of breast cancer is not imaged by mammography. Dictated by: Dictated on workstation # [id number]
== END ==
LOC: RAD 07:50
PROVIDERS: ATTEND Internal Medicine
DX: Z12.31 Encounter for screening mammogram for malignant neoplasm of breast (principal)
CPT/HCPCS: 77067

== ENCOUNTER 2019-06-14 08:37 | Outpatient (RCR) | payer MEDICARE, BC ==
[2019-06-07 09:53] LABS: BASOPHILS % (AUTO) 1 % (0-10); EOSINOPHILS # (AUTO) 0.1 10^3/uL (0.0-0.3); EOSINOPHILS % (AUTO) 3 % (0-10); HEMATOCRIT 45 % (35-52); HEMOGLOBIN 14.8 G/DL (11.5-16.0); LYMPHOCYTES # (AUTO) 1.4 X 10^3 (1.0-4.0); LYMPHOCYTES % (AUTO) 30 % (12-44); MEAN CORPUSCULAR HEMOGLOBIN 30 PG (25-34); MEAN CORPUSCULAR HGB CONC 33 G/DL (32-36); MEAN CORPUSCULAR VOLUME 93 FL (80-99); MEAN PLATELET VOLUME 8.8 FL (7.4-10.4); MONOCYTES # (AUTO) 0.5 X 10^3 (0.0-1.0); MONOCYTES % (AUTO) 12 % (0-12); NEUTROPHILS # (AUTO) 2.5 X 10^3 (1.8-7.8); NEUTROPHILS % (AUTO) 55 % (42-75); PLATELET COUNT 210 10^3/uL (130-400); RED CELL DISTRIBUTION WIDTH 14.4 % (10.0-14.5); WHITE BLOOD COUNT 4.6 10^3/uL (4.3-11.0)
[2019-06-07 10:10] LABS: ALANINE AMINOTRANSFERASE 17 U/L (0-55); ALBUMIN 4.1 GM/DL (3.2-4.5); ALKALINE PHOSPHATASE 68 U/L (40-136); BILIRUBIN,TOTAL 0.5 MG/DL (0.1-1.0); BUN/CREATININE RATIO 19; CALCIUM 9.2 MG/DL (8.5-10.1); CARBON DIOXIDE 25 MMOL/L (21-32); CHLORIDE 105 MMOL/L (98-107); CREATININE SERUM 0.83 MG/DL (0.60-1.30); GFR ESTIMATED > 60; GLUCOSE 133 MG/DL (70-105); POTASSIUM 4.4 MMOL/L (3.6-5.0); SODIUM 139 MMOL/L (135-145)
[~2019-06-14 08:37] MED LIST changes: +EZET10TA17 PO; -EZET10TA5 PO
== END 2019-09-05 | disposition home or self-care (01) ==
LOC: ONC 08:37
PROVIDERS: ATTEND Internal Medicine Hematology & Oncology
DX: C85.82 Other specified types of non-Hodgkin lymphoma, intrathoracic lymph nodes (principal); E11.9 Type 2 diabetes mellitus without complications; I10 Essential (primary) hypertension; E78.5 Hyperlipidemia, unspecified; Z79.899 Other long term (current) drug therapy; Z79.82 Long term (current) use of aspirin; Z92.21 Personal history of antineoplastic chemotherapy
CPT/HCPCS: 36415; 80053; 83615; 85025; 99213

== ENCOUNTER 2020-02-15 08:41 | Outpatient (RCR) | payer MEDICARE, BC ==
[2020-02-07 10:41] LABS: BASOPHILS % (AUTO) 1 % (0-10); EOSINOPHILS # (AUTO) 0.2 10^3/uL (0.0-0.3); EOSINOPHILS % (AUTO) 4 % (0-10); HEMATOCRIT 43 % (35-52); HEMOGLOBIN 13.9 G/DL (11.5-16.0); LYMPHOCYTES # (AUTO) 1.7 X 10^3 (1.0-4.0); LYMPHOCYTES % (AUTO) 30 % (12-44); MEAN CORPUSCULAR HEMOGLOBIN 30 PG (25-34); MEAN CORPUSCULAR HGB CONC 33 G/DL (32-36); MEAN CORPUSCULAR VOLUME 92 FL (80-99); MEAN PLATELET VOLUME 9.1 FL (7.4-10.4); MONOCYTES # (AUTO) 0.6 X 10^3 (0.0-1.0); MONOCYTES % (AUTO) 11 % (0-12); NEUTROPHILS # (AUTO) 3.1 X 10^3 (1.8-7.8); NEUTROPHILS % (AUTO) 55 % (42-75); PLATELET COUNT 190 10^3/uL (130-400); WHITE BLOOD COUNT 5.7 10^3/uL (4.3-11.0)
[2020-02-07 11:03] LABS: ALANINE AMINOTRANSFERASE 13 U/L (0-55); ALKALINE PHOSPHATASE 56 U/L (40-136); BILIRUBIN,TOTAL 0.5 MG/DL (0.1-1.0); BUN/CREATININE RATIO 24; CARBON DIOXIDE 24 MMOL/L (21-32); CHLORIDE 105 MMOL/L (98-107); CREATININE SERUM 0.78 MG/DL (0.60-1.30); GFR ESTIMATED > 60; GLUCOSE 113 MG/DL (70-105); POTASSIUM 4.4 MMOL/L (3.6-5.0); SODIUM 138 MMOL/L (135-145)
[~2020-02-15 08:41] MED LIST changes: +ASCO500T17 PO; -ASCO500T6 PO
== END 2020-05-07 | disposition home or self-care (01) ==
LOC: ONC 08:41
PROVIDERS: ATTEND Internal Medicine Hematology & Oncology
DX: C85.82 Other specified types of non-Hodgkin lymphoma, intrathoracic lymph nodes (principal); E11.9 Type 2 diabetes mellitus without complications; I10 Essential (primary) hypertension; E78.5 Hyperlipidemia, unspecified; Z79.899 Other long term (current) drug therapy; Z79.82 Long term (current) use of aspirin; Z92.21 Personal history of antineoplastic chemotherapy
CPT/HCPCS: 80053; 83615; 85025; 99213

== ENCOUNTER → 2020-06-12 | Outpatient (CLI) | payer MEDICARE, BC ==
--- NOTE | 2020-06-12 11:04 | Diagnostic Imaging Report ---
INDICATION: Routine screening. Comparison is made with prior mammogram 05/24/2019 and 02/09/2018. 2-D and 3-D bilateral screening mammography was performed with CAD. Scattered fibroglandular densities are identified bilaterally. The parenchymal pattern is stable. No mass or malignant-appearing microcalcifications are seen. Axillae are unremarkable. IMPRESSION: BI-RADS Category 1 No mammographic features suspicious for malignancy are identified. ACR BI-RADS Category 1: Negative. Result letter will be mailed to the patient. Note: At least 10% of breast cancer is not imaged by mammography. Dictated by: Dictated on workstation # [id number]
== END ==
LOC: RAD 08:10
PROVIDERS: ATTEND Internal Medicine
DX: Z12.31 Encounter for screening mammogram for malignant neoplasm of breast (principal)
CPT/HCPCS: 77063; 77067

== ENCOUNTER 2020-11-05 07:43 | Emergency (ER) | payer MEDICARE, BC ==
[~2020-11-05] VITALS: Ht 167.7 cm; Wt 81.6 kg
--- NOTE | 2020-11-05 08:06 | ED General ---
General Stated Complaint: NAUSEA,DIZZINESS Source of Information: Patient Exam Limitations: No Limitations History of Present Illness Date Seen by Provider: Nov 05, 2020 Time Seen by Provider: 07:55 Initial Comments Patient is a 75-year-old female who presents to the emergency department today with a chief complaint of nausea and upset stomach. Patient states she and her went and ate at [employer] for lunch on Friday, 48 hours ago after having not eaten out for approximately 1 year secondary to Covid. Patient states that she woke up yesterday morning a little bit queasy but felt well the rest of the day. Patient states that her has been up all night with diarrhea. Patient states that she felt fine until her was picked up by EMS and brought to the hospital for his symptoms. Then she started having further stomach upset. She has not vomited. She has not had diarrhea. She denies any urinary complaints. No chest pain or shortness of breath or other febrile illnesses. Patient has been Covid vaccinated in August and September of this year. She has a history of hypertension, hypercholesterolemia and type 2 diabetes. Both she and her took their Repatha for hypercholesterolemia on night. She has never had a reaction to this before. All other review of systems reviewed and negative except as stated. Timing/Duration: 24 Hours Severity: Mild Associated Systoms: Nausea/Vomiting (Nausea without vomiting) Allergies and Home Medications Allergies Coded Allergies: No Known Drug Allergies (Verified , 07/29/07) Home Medications Ascorbic Acid 500 Mg Tablet, 500 MG PO DAILY, (Reported) Azithromycin 500 Mg Tablet, 500 MG PO DAILY FOR INFECTION Prescribed by: ROSEMARY YATES on 09/28/1714 Benzonatate 100 Mg Capsule, 1-2 TAB PO TID Prescribed by: ROSEMARY YATES on 09/28/1714 Cefdinir 300 Mg Capsule, 300 MG PO BID Prescribed by: ROSEMARY YATES on 09/28/1714 Cholecalciferol (Vitamin D3) 1,000 Unit Tablet, 1,000 UNIT PO BID, (Reported) Ezetimibe 10 Mg Tablet, 10 MG PO DAILY, (Reported) Lecithin 1,200 Mg Capsule, 1,200 MG PO DAILY, (Reported) Loratadine 10 Mg Tablet, 10 MG PO DAILY, (Reported) Magnesium Oxide 250 Mg Tablet, 250 MG PO DAILY, (Reported) Methylprednisolone 4 Mg Tab.ds.pk, 4 MG PO UD Prescribed by: ROSEMARY YATES on 09/28/17 0015 Multivitamin 1 Each Capsule, 1 EACH PO DAILY, (Reported) Pioglitazone HCl/Metformin HCl 1 Each Tablet, 1 EACH PO BID, (Reported) Vitamin B Complex 1 Each Tablet, 1 EACH PO DAILY, (Reported) Vitamin E Mixed 400 Unit Tablet, 400 UNIT PO DAILY, (Reported) Patient Home Medication List Home Medication List Reviewed: Yes Review of Systems Review of Systems Constitutional: see HPI EENTM: no symptoms reported Respiratory: no symptoms reported Cardiovascular: no symptoms reported Gastrointestinal: nausea Genitourinary: no symptoms reported Musculoskeletal: no symptoms reported Skin: no symptoms reported All Other Systems Reviewed Negative Unless Noted: Yes Past Zkslrin-Ixezbm-Hgntxx Hx Patient Social History 2nd Hand Smoke Exposure: No Recent Hopitalizations: No Immunizations Up To Date Date of Pneumonia Vaccine: Sep 18, 2010 Date of Influenza Vaccine: May 18, 2015 Past Medical History Surgeries: Yes (left KNEE , PORT placed and removed, BX THROAT) Orthopedic Respiratory: No Cardiac: Yes High Cholesterol, Hypertension Neurological: No Reproductive Disorders: No Genitourinary: No Gastrointestinal: Yes Diverticulosis Musculoskeletal: No Endocrine: Yes Diabetes, Non-Insulin dep HEENT: No Cancer: Yes (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 6.0oz. 81.848897sx; 29.05 BMI Method:Stated General Appearance: No Apparent Distress, WD/WN Eyes: Bilateral Eye Normal Inspection, Bilateral Eye PERRL, Bilateral Eye EOMI HEENT: PERRL/EOMI Neck: Normal Inspection Respiratory: Lungs Clear, Normal Breath Sounds, No Accessory Muscle Use Cardiovascular: Regular Rate, Rhythm Gastrointestinal: Non Tender, Soft, Abnormal Bowel Sounds (Hyperactive bowel sounds) Extremity: Normal Capillary Refill, Normal Inspection, No Pedal Edema Neurologic/Psychiatric: Alert, Oriented x3, No Motor/Sensory Deficits, Normal Mood/Affect Skin: Normal Color, Warm/Dry Progress/Results/Core Measures Suspected Sepsis SIRS Temperature: Pulse: Respiratory Rate: Laboratory Tests 11/05/20 08:03: White Blood Count 5.0 Blood Pressure / Mean: Laboratory Tests 11/05/20 08:03: Creatinine 0.85, Platelet Count 183, Total Bilirubin 0.6 Results/Orders Lab Results Laboratory Tests Test 11/05/20 08:03 Range/Units White Blood Count 5.0 4.3-11.0 10^3/uL Red Blood Count 4.76 3.80-5.11 10^6/uL Hemoglobin 14.3 11.5-16.0 g/dL Hematocrit 44 35-52 % Mean Corpuscular Volume 93 80-99 fL Mean Corpuscular Hemoglobin 30 25-34 pg Mean Corpuscular Hemoglobin Concent 32 32-36 g/dL Red Cell Distribution Width 13.7 10.0-14.5 % Platelet Count 183 130-400 10^3/uL Mean Platelet Volume 9.2 9.0-12.2 fL Immature Granulocyte % (Auto) 0 % Neutrophils (%) (Auto) 54 42-75 % Lymphocytes (%) (Auto) 30 12-44 % Monocytes (%) (Auto) 11 0-12 % Eosinophils (%) (Auto) 4 0-10 % Basophils (%) (Auto) 1 0-10 % Neutrophils # (Auto) 2.7 1.8-7.8 10^3/uL Lymphocytes # (Auto) 1.5 1.0-4.0 10^3/uL Monocytes # (Auto) 0.6 0.0-1.0 10^3/uL Eosinophils # (Auto) 0.2 0.0-0.3 10^3/uL Basophils # (Auto) 0.0 0.0-0.1 10^3/uL Immature Granulocyte # (Auto) 0.0 0.0-0.1 10^3/uL Sodium Level 139 135-145 MMOL/L Potassium Level 4.9 3.6-5.0 MMOL/L Chloride Level 106 98-107 MMOL/L Carbon Dioxide Level 20 L 21-32 MMOL/L Anion Gap 13 5-14 MMOL/L Blood Urea Nitrogen 14 7-18 MG/DL Creatinine 0.85 0.60-1.30 MG/DL Estimat Glomerular Filtration Rate > 60 BUN/Creatinine Ratio 16 Glucose Level 179 H 70-105 MG/DL Calcium Level 9.1 8.5-10.1 MG/DL Corrected Calcium 9.1 8.5-10.1 MG/DL Total Bilirubin 0.6 0.1-1.0 MG/DL Aspartate Amino Transf (AST/SGOT) 25 5-34 U/L Alanine Aminotransferase (ALT/SGPT) 16 0-55 U/L Alkaline Phosphatase 50 40-136 U/L Total Protein 7.2 6.4-8.2 GM/DL Albumin 4.0 3.2-4.5 GM/DL My Orders Orders - DAYSI NUNN MD Ondansetron Injection (Zofran Injectio (11/05/20 08:15) Cbc With Automated Diff (11/05/20 08:07) Comprehensive Metabolic Panel (11/05/20 08:07) Medications Given in ED Current Medications Medications Dose Ordered Sig/Bev Route Start Time Stop Time Status Last Admin Dose Admin Ondansetron HCl 4 mg ONCE ONCE IVP 11/05/20 08:15 11/05/20 08:16 DC 11/05/20 08:15 4 MG Vital Signs/I&O 11/05/20 07:52 Temp 35.2 Pulse 87 Resp 16 B/P (MAP) 165/78 (107) Pulse Ox 95 O2 Delivery Room Air Capillary Refill : Progress Note : Time: 09:23 Progress Note Patient seen and evaluated, 75-year-old with a chief complaint of nausea. Patient is evaluated with routine laboratory studies CBC, Chem-12. Patient is treated in the emergency department with 4 mg of Zofran IV. She is Reeve evaluated at this point and states that she feels 100% better. She is tolerating p.o. She states she has nausea medications at home and is comfortable with discharge. All questions have been sought and answered. Patient is stable for discharge. Departure Impression Primary Impression: Food poisoning Disposition: HOME, SELF-CARE Condition: Stable Departure-Patient Inst. Decision time for Depature: 09:24 Referrals: MARYURI HOPKINS MD (PCP/Family) Primary Care Physician Patient Instructions: Food Poisoning Add. Discharge Instructions: Drink plenty of fluids at home this morning to stay well-hydrated. Use your nausea medication every 8 hours as needed for stomach upset. Return to the emergency room if you are not able to hold down fluids, if you have persistent vomiting or any other emergent concerning symptoms. Please follow-up with your primary care physician next week. Copy Copies To 1: MARYURI HOPKINS MD, KATHRYN M MD Nov 05, 2020 08:06
[2020-11-05 08:14] LABS: BASOPHILS % (AUTO) 1 % (0-10); EOSINOPHILS # (AUTO) 0.2 10^3/uL (0.0-0.3); EOSINOPHILS % (AUTO) 4 % (0-10); HEMATOCRIT 44 % (35-52); HEMOGLOBIN 14.3 g/dL (11.5-16.0); LYMPHOCYTES # (AUTO) 1.5 10^3/uL (1.0-4.0); LYMPHOCYTES % (AUTO) 30 % (12-44); MEAN CORPUSCULAR HEMOGLOBIN 30 pg (25-34); MEAN CORPUSCULAR HGB CONC 32 g/dL (32-36); MEAN CORPUSCULAR VOLUME 93 fL (80-99); MEAN PLATELET VOLUME 9.2 fL (9.0-12.2); MONOCYTES # (AUTO) 0.6 10^3/uL (0.0-1.0); MONOCYTES % (AUTO) 11 % (0-12); NEUTROPHILS # (AUTO) 2.7 10^3/uL (1.8-7.8); NEUTROPHILS % (AUTO) 54 % (42-75); PLATELET COUNT 183 10^3/uL (130-400)
[2020-11-05] MEDS ORDERED: ONDANSETRON 4 MG/2 ML (SDV) Z0FRAN IVP ONE (08:15)
[2020-11-05 08:21] LABS: CHLORIDE 106 MMOL/L (98-107); POTASSIUM 4.9 MMOL/L (3.6-5.0); SODIUM 139 MMOL/L (135-145)
[2020-11-05 08:22] LABS: CALCIUM 9.1 MG/DL (8.5-10.1)
[2020-11-05 08:23] LABS: GLUCOSE 179 MG/DL (70-105)
[2020-11-05 08:24] LABS: TOTAL PROTEIN 7.2 GM/DL (6.4-8.2)
[2020-11-05 08:25] LABS: BILIRUBIN,TOTAL 0.6 MG/DL (0.1-1.0); CARBON DIOXIDE 20 MMOL/L (21-32)
[2020-11-05 08:27] LABS: ALKALINE PHOSPHATASE 50 U/L (40-136); CREATININE SERUM 0.85 MG/DL (0.60-1.30); GFR ESTIMATED > 60
[2020-11-05 08:28] LABS: BUN/CREATININE RATIO 16
[2020-11-05 08:30] LABS: ALANINE AMINOTRANSFERASE 16 U/L (0-55)
[2020-11-05 09:49] VITALS: BP 128/57
== END 2020-11-05 09:49 | disposition home or self-care (01) ==
LOC: EDUNIT# 07:43 → ER 07:45
DX: A05.9 Bacterial foodborne intoxication, unspecified (principal); I10 Essential (primary) hypertension; E11.9 Type 2 diabetes mellitus without complications; E78.00 Pure hypercholesterolemia, unspecified; Z85.72 Personal history of non-Hodgkin lymphomas; Z79.52 Long term (current) use of systemic steroids
CPT/HCPCS: 36415; 80053; 85025

== ENCOUNTER 2021-02-14 12:54 | Outpatient (RCR) | payer MEDICARE, BC ==
[2021-02-06 09:22] LABS: BASOPHILS # (AUTO) 0.1 10^3/uL (0.0-0.1); BASOPHILS % (AUTO) 0 % (0-10); EOSINOPHILS # (AUTO) 0.3 10^3/uL (0.0-0.3); EOSINOPHILS % (AUTO) 3 % (0-10); HEMATOCRIT 48 % (35-52); HEMOGLOBIN 15.5 g/dL (11.5-16.0); LYMPHOCYTES # (AUTO) 1.6 10^3/uL (1.0-4.0); LYMPHOCYTES % (AUTO) 14 % (12-44); MEAN CORPUSCULAR HEMOGLOBIN 30 pg (25-34); MEAN CORPUSCULAR HGB CONC 33 g/dL (32-36); MEAN CORPUSCULAR VOLUME 93 fL (80-99); MONOCYTES % (AUTO) 9 % (0-12); NEUTROPHILS # (AUTO) 8.4 10^3/uL (1.8-7.8); NEUTROPHILS % (AUTO) 74 % (42-75); PLATELET COUNT 180 10^3/uL (130-400); WHITE BLOOD COUNT 11.4 10^3/uL (4.3-11.0)
[2021-02-06 09:55] LABS: ALANINE AMINOTRANSFERASE 19 U/L (0-55); ALKALINE PHOSPHATASE 53 U/L (40-136); BILIRUBIN,TOTAL 0.5 MG/DL (0.1-1.0); BUN/CREATININE RATIO 29; CALCIUM 9.8 MG/DL (8.5-10.1); CARBON DIOXIDE 26 MMOL/L (21-32); CHLORIDE 104 MMOL/L (98-107); GFR ESTIMATED > 60; GLUCOSE 138 MG/DL (70-105); POTASSIUM 4.6 MMOL/L (3.6-5.0); SODIUM 138 MMOL/L (135-145)
[2021-03-21] MEDS ORDERED: OMEP40CA6 PO (13:58)
[2021-03-21] MEDS ORDERED: MELO7.5T46 PO (13:58)
[2021-03-21] MEDS ORDERED: EVOL420W2 SQ (13:58)
[2021-03-21] MEDS ORDERED: VALS40TA9 PO (13:58)
[2021-03-21] MEDS ORDERED: PIOG30TA38 PO (13:58)
== END 2021-05-07 | disposition home or self-care (01) ==
LOC: ONC 12:54
PROVIDERS: ATTEND Internal Medicine Hematology & Oncology
DX: C82.80 Other types of follicular lymphoma, unspecified site (principal); E11.9 Type 2 diabetes mellitus without complications; I10 Essential (primary) hypertension; E78.5 Hyperlipidemia, unspecified; J30.9 Allergic rhinitis, unspecified; Z92.21 Personal history of antineoplastic chemotherapy
CPT/HCPCS: 80053; 83615; 85025; 99213

== ENCOUNTER → 2021-03-09 | Outpatient (CLI) | payer MEDICARE, BC | LOC: LABNPT 05:23 | PROVIDERS: ATTEND Internal Medicine | DX: Z20.822 Contact with and (suspected) exposure to COVID-19 (principal) | CPT/HCPCS: 87635 ==

== ENCOUNTER → 2021-03-21 | Outpatient (CLI) | payer MEDICARE, BC ==
[~2021-03-21] VITALS: Ht 167.7 cm; Wt 85.4 kg
[~2021-03-21] MED LIST changes: +EVOL420W2 SQ; +MELO7.5T46 PO; +OMEP40CA6 PO; +PIOG30TA38 PO; +VALS40TA9 PO
== END | disposition home or self-care (01) ==
LOC: PREOP 05:32
PROVIDERS: ATTEND Internal Medicine
DX: Z01.818 Encounter for other preprocedural examination (principal)

== ENCOUNTER 2021-03-23 08:58 | Day surgery (SDC) | payer MEDICARE, BC ==
--- NOTE | 2021-03-21 06:07 | HISTORY AND PHYSICAL ---
DATE OF SERVICE: COLONOSCOPY HISTORY AND PHYSICAL HISTORY OF PRESENT ILLNESS: The patient is a 75-year-old white female seen in the office for followup of hypertension and past history of lymphoma as well as hyperlipidemia with no known history of coronary artery disease. She is deemed to be of higher than average risk as her son was diagnosed with colon cancer at the age of 53. Her last colonoscopy was in 2015 with no evidence for neoplasia at that time. She does report what she thinks is an external hemorrhoid prolapsing without bleeding. It is aggravated by intermittent constipation as of late, she has been using MiraLax and stools have not been hard nor she had to strain. Weight has been stable. PHYSICAL EXAMINATION: GENERAL: Reveals a white female who appeared to be in no acute distress. VITAL SIGNS: Blood pressure 114/58. CHEST: Clear. CARDIOVASCULAR: Reveals a regular rate and rhythm with an unchanged II/ systolic ejection murmur heard best over the aortic outflow tract without evidence of pulsus, parvus or tardus. No S3 or S4 noted. ABDOMEN: Soft, supple without mass, organomegaly or tenderness. RECTAL: Evaluation was deferred to the time of the procedure. EXTREMITIES: Reveal no cyanosis, clubbing or edema. ASSESSMENT AND PLAN: 1. Hypertension, under good control. 2. The patient is being set up for diagnostic colonoscopy due to family history for colon cancer and a past history of colon polyps. 3. 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 She was advised to discuss this with her circus artist and reassured. Otherwise, with no significant bleeding issues reported. We will have her keep her regular followup in May for a flu shot. She is also fully COVID vaccinated. Job ID: [id number] DocumentID: [id number] Dictated Date: 03/19/2021 16:00:07 Therapeutic Assistant Date: 03/19/2021 17:00:15 Dictated By: MARYURI HOPKINS MD
[~2021-03-23] VITALS: Ht 167.7 cm; Wt 85.4 kg
[2021-03-23] MEDS ORDERED: LACTATED RINGERS 1,000 ML IV STA (09:00)
[2021-03-23] MEDS ORDERED: LIDOCAINE JELLY 2% 6 ML SYRINGE MM PRN (09:00)
[2021-03-23] MEDS ORDERED: LACTATED RINGERS 1,000 ML IV ONE (09:05)
[2021-03-23 09:10] VITALS: BP 116/65
--- NOTE | 2021-03-23 09:35 | Pre-Op Note & Conscious Sedat ---
Pre-Operative Progress Note H&P Reviewed The H&P was reviewed, patient examined and no changes noted. Date H&P Reviewed: Mar 23, 2021 Time H&P Reviewed: 09:35 Conscious Sedation Pre-Proced ASA Score 2 For ASA 3 and 4: Consider anesthesia and medical clearance. Also, for patients with a history of failed moderate sedation consider anesthesia. Airway Lungs Heart ASA score ASA 1: a normal healthy patient ASA 2: a patient with a mild systemic disease (mid diabetes, controlled hypertension, obesity ASA 3: a patient with a severe systemic disease that limits activity (angina, COPD, prior Myocardial infarction) ASA 4: a patient with an incapacitating disease that is a constant threat to life (CHF, renal failure) ASA 5: a moribund patient not expected to survive 24 hrs. (ruptured aneurysm) ASA 6: a declared brain- patient whose organs are being harvested. For emergent operations, add the letter E after the classification Mallampati Classification Grade 3 Sedation Plan Analgesia, Amnesia, Plan communicated to team members, Discussed options with patient/fam, Discussed risks with patient/fam The patient is an appropriate candidate to undergo the planned procedure, sedation, and anesthesia. The patient immediately re-assessed prior to indication. MARYURI HOPKINS MD Mar 23, 2021 09:35
[2021-03-23] MEDS ORDERED: PROPOFOL INJECTION 50 ML IV ONE (09:38)
[2021-03-23 10:40] VITALS: BP 158/79
[2021-03-23 10:45] VITALS: BP_SYST 145; BP_SYST 159; BP_DIAS 75; BP_DIAS 76
[2021-03-23 11:25] VITALS: BP 140/78
--- NOTE | 2021-03-23 12:05 | Anesthesia-General Post-Op ---
MAC Patient Condition Mental Status/LOC: Same as Preop Cardiovascular: Satisfactory Nausea/Vomiting: Absent Respiratory: Satisfactory Pain: Controlled Complications: Absent Post Op Complications Complications None Follow Up Care/Instructions Patient Instructions None needed. Anesthesiology Discharge Order Discharge Order Patient is doing well, no complaints, stable vital signs, no apparent adverse anesthesia problems. No complications reported per nursing. CARLOS GARRETT CRNA Mar 23, 2021 12:05
--- NOTE | 2021-03-23 15:58 | OPERATIVE REPORT ---
DATE OF SERVICE: COLONOSCOPY SUMMARY INDICATION FOR THE PROCEDURE: Colonoscopy was performed for screening purposes. I am her primary care physician. DESCRIPTION OF PROCEDURE: The patient was placed in the left lateral decubitus position. Prior to undergoing colonoscopy, digital rectal evaluation was performed. Anal sphincter tone was normal and the perianal reflexes intact. The patient has a roughly 2.5 cm thrombosed external hemorrhoid with no evidence for internal hemorrhoids. No other abnormalities noted to digital inspection of anal canal or distal rectal vault. Colonoscope was then inserted into the rectum and under direct visualization advanced to cecum. The cecum was identified by identification of ileocecal valve and cecal strap. Photographic documentation was obtained. Careful inspection was made as colonoscope withdrawn. Quality of prep was good. FINDINGS: There was no evidence for internal or external hemorrhoids. The rectum, sigmoid colon, descending colon, transverse colon, ascending colon, and cecum were unremarkable. ASSESSMENT: Normal colonoscopy to the cecum. The patient does have one symptomatic thrombosed external hemorrhoid. Discussed options. The patient is being set up for surgical referral. Expectations discussed. Considering age and medical comorbidities, we will not advocate future screening colonoscopy. Job ID: [id number] DocumentID: [id number] Dictated Date: 03/23/2021 11:33:32 Automobile Body Repairer Date: 03/23/2021 15:57:04 Dictated By: MARYURI HOPKINS MD
== END 2021-03-23 11:30 | disposition home or self-care (01) ==
LOC: ENDO 08:58
PROVIDERS: ATTEND Internal Medicine
DX: Z12.11 Encounter for screening for malignant neoplasm of colon (principal); K64.5 Perianal venous thrombosis; E11.9 Type 2 diabetes mellitus without complications; I10 Essential (primary) hypertension; E78.5 Hyperlipidemia, unspecified; D69.2 Other nonthrombocytopenic purpura; Z85.72 Personal history of non-Hodgkin lymphomas; Z80.0 Family history of malignant neoplasm of digestive organs

== ENCOUNTER → 2021-06-13 | Outpatient (CLI) | payer MEDICARE, BC ==
--- NOTE | 2021-06-14 10:28 | Diagnostic Imaging Report ---
Digital mammogram INDICATION: Bilateral screening This study was compared to the prior exams of 06/12/2020, 05/24/2019 and 02/09/2018. At this time there are no current complaints. The current study was also evaluated with a Computer Aided Detection (CAD) system. FINDINGS: The fibroglandular tissue in both breasts is heterogeneously dense. This does limit the sensitivity of this exam. Overall, there does not appear to have been any significant change when compared to the prior study. No primary or secondary sign of malignancy is noted. IMPRESSION: There is no radiographic evidence for malignancy. ACR category 1 ACR BI-RADS Category 1: Negative. Result letter will be mailed to the patient. Note: At least 10% of breast cancer is not imaged by mammography. Dictated by: Dictated on workstation # [id number]
== END ==
LOC: RAD 07:45
PROVIDERS: ATTEND Internal Medicine
DX: Z12.31 Encounter for screening mammogram for malignant neoplasm of breast (principal)
CPT/HCPCS: 77063; 77067

== ENCOUNTER 2022-02-08 12:48 | Outpatient (RCR) | payer MEDICARE, BC ==
[2022-02-01 10:34] LABS: BASOPHILS % (AUTO) 1 % (0-10); EOSINOPHILS # (AUTO) 0.2 10^3/uL (0.0-0.3); EOSINOPHILS % (AUTO) 3 % (0-10); HEMATOCRIT 42 % (35-52); HEMOGLOBIN 13.5 g/dL (11.5-16.0); LYMPHOCYTES # (AUTO) 1.4 10^3/uL (1.0-4.0); LYMPHOCYTES % (AUTO) 24 % (12-44); MEAN CORPUSCULAR HEMOGLOBIN 29 pg (25-34); MEAN CORPUSCULAR HGB CONC 33 g/dL (32-36); MEAN CORPUSCULAR VOLUME 91 fL (80-99); MEAN PLATELET VOLUME 8.8 fL (9.0-12.2); MONOCYTES # (AUTO) 0.7 10^3/uL (0.0-1.0); MONOCYTES % (AUTO) 12 % (0-12); NEUTROPHILS # (AUTO) 3.6 10^3/uL (1.8-7.8); NEUTROPHILS % (AUTO) 60 % (42-75); PLATELET COUNT 242 10^3/uL (130-400); WHITE BLOOD COUNT 5.9 10^3/uL (4.3-11.0)
[2022-02-01 10:53] LABS: ALBUMIN 3.9 GM/DL (3.2-4.5); BILIRUBIN,TOTAL 0.4 MG/DL (0.1-1.0); CALCIUM 9.9 MG/DL (8.5-10.1); CREATININE SERUM 0.85 MG/DL (0.60-1.30); POTASSIUM 4.5 MMOL/L (3.6-5.0)
[~2022-02-08 12:48] MED LIST changes: +PIOG1TAB23 PO; -PIOG1TAB30 PO
== END 2022-02-14 | disposition home or self-care (01) ==
LOC: ONC 12:48
PROVIDERS: ATTEND Internal Medicine Hematology & Oncology
DX: C85.10 Unspecified B-cell lymphoma, unspecified site (principal); E11.9 Type 2 diabetes mellitus without complications; I10 Essential (primary) hypertension; E78.5 Hyperlipidemia, unspecified; J30.9 Allergic rhinitis, unspecified; Z92.21 Personal history of antineoplastic chemotherapy
CPT/HCPCS: 36415; 80053; 83615; 85025; 99213

== ENCOUNTER → 2022-06-14 | Outpatient (CLI) | payer MEDICARE, BC ==
--- NOTE | 2022-06-14 14:29 | Diagnostic Imaging Report ---
Indication: Routine screening. Comparison is made with prior mammogram from 06/13/2021 and 06/12/2020. 2-D and 3-D bilateral screening mammography was performed with CAD. CAD is utilized. The current study was also evaluated with a Computer Aided Detection (CAD) system. Scattered fibroglandular densities are identified bilaterally. The parenchymal pattern is stable. No mass or malignant-appearing microcalcifications are seen. Axillae are unremarkable. IMPRESSION: BI-RADS Category 1 No mammographic features suspicious for malignancy are identified. ACR BI-RADS Category 1: Negative. Result letter will be mailed to the patient. Note: At least 10% of breast cancer is not imaged by mammography. Dictated by: Dictated on workstation # [id number]
== END ==
LOC: RAD 08:10
PROVIDERS: ATTEND Internal Medicine
DX: Z12.31 Encounter for screening mammogram for malignant neoplasm of breast (principal)
CPT/HCPCS: 77063; 77067

== ENCOUNTER → 2022-10-11 | Outpatient (CLI) | payer MEDICARE, BC | LOC: CARD 08:30 | PROVIDERS: ATTEND Physician Assistant | DX: I35.1 Nonrheumatic aortic (valve) insufficiency (principal); I11.9 Hypertensive heart disease without heart failure | CPT/HCPCS: 93306 ==

== ENCOUNTER → 2022-11-18 | Outpatient (CLI) | payer MEDICARE, BC ==
[~2022-11-18] VITALS: Ht 167 cm; Wt 84.0 kg
[~2022-11-18] MED LIST changes: +CATHETER FLUSH 10 ML SYR IVP PRN; +REGADENOSON 0.4 MG/5 ML SYR (LEXISCAN) IV ONE
[2022-11-18 09:27] VITALS: BP 134/76
--- NOTE | 2022-11-18 10:38 | Cardiology Stress Test Report ---
Stress Test Report Date of Procedure/Referring: Date of Procedure: Nov 18, 2022 PCP Maryuri Hopkins MD Admitting Physician Admitting Physician: Attending Physician: Mary Schmitz Baseline Heart Rate: 69 Baseline Blood Pressure: Blood Pressure Systolic: 134 Blood Pressure Diastolic: 76 Baseline Vitals Vital Signs Date Time Temp Pulse Resp B/P (MAP) Pulse Ox O2 Delivery O2 Flow Rate FiO2 11/18/22 09:27 69 134/76 (95) Baseline EKG: Baseline EKG: NSR Summary After explaining the procedure to the patient, she signed a consent and then brought to the stress nuclear laboratory. Patient received 0.4 mg Lexiscan for stress test, ECG, heart rate and blood pressure were monitored continuously. Resting and stress dose of radio tracer were injected, imaging was acquired and reviewed in short axis, horizontal long axis and vertical long axis views. TID: 1.13 SSS: 5 SDS: 3 EF: 74 Patient tolerated Lexiscan well Breast attenuation with typical female pattern, no significant ischemia or infarction on SPECT images Normal left ventricular size, ejection fraction 74% Copy Copies To 1: MARYURI HOPKINS MD, BASHAR J MD Nov 18, 2022 10:38
== END ==
LOC: CARD 08:15
PROVIDERS: ATTEND Physician Assistant
DX: I10 Essential (primary) hypertension (principal)
CPT/HCPCS: 78452; 93017; A9502

== ENCOUNTER → 2022-12-27 | Outpatient (CLI) | payer MEDICARE, BC ==
[~2022-12-27] MED LIST changes: -CATHETER FLUSH 10 ML SYR IVP PRN; -REGADENOSON 0.4 MG/5 ML SYR (LEXISCAN) IV ONE
--- NOTE | 2022-12-27 16:26 | Diagnostic Imaging Report ---
INDICATION: Right foot pain, right foot injury. TIME OF EXAM: 10:39 AM. EXAMINATION: Three views of right foot were obtained. FINDINGS: There is a fracture involving the distal 3rd metatarsal. No significant displacement or angulation is seen. Remaining metatarsals are intact. Phalanges are intact. Midfoot and hindfoot are unremarkable apart from a large plantar calcaneal spur. IMPRESSION: Distal 3rd metatarsal fracture. Dictated by: Dictated on workstation # [id number]
== END ==
LOC: RAD 10:18
PROVIDERS: ATTEND Nurse Practitioner Family
DX: S92.331A Displaced fracture of third metatarsal bone, right foot, initial encounter for closed fracture (principal); X58.XXXA Exposure to other specified factors, initial encounter
CPT/HCPCS: 73630

== ENCOUNTER 2023-02-05 08:45 | Outpatient (RCR) | payer MEDICARE, BC ==
[2023-01-31 11:36] LABS: BASOPHILS % (AUTO) 1 % (0-10); EOSINOPHILS # (AUTO) 0.1 10^3/uL (0.0-0.3); EOSINOPHILS % (AUTO) 3 % (0-10); HEMATOCRIT 41 % (35-52); LYMPHOCYTES # (AUTO) 1.1 10^3/uL (1.0-4.0); LYMPHOCYTES % (AUTO) 23 % (12-44); MEAN CORPUSCULAR HEMOGLOBIN 30 pg (25-34); MEAN CORPUSCULAR HGB CONC 32 g/dL (32-36); MEAN CORPUSCULAR VOLUME 93 fL (80-99); MEAN PLATELET VOLUME 8.7 fL (9.0-12.2); MONOCYTES # (AUTO) 0.6 10^3/uL (0.0-1.0); MONOCYTES % (AUTO) 12 % (0-12); NEUTROPHILS # (AUTO) 2.9 10^3/uL (1.8-7.8); NEUTROPHILS % (AUTO) 62 % (42-75); PLATELET COUNT 197 10^3/uL (130-400); WHITE BLOOD COUNT 4.8 10^3/uL (4.3-11.0)
[2023-01-31 11:51] LABS: ALBUMIN 3.9 GM/DL (3.2-4.5); BILIRUBIN,TOTAL 0.6 MG/DL (0.1-1.0); CALCIUM 9.6 MG/DL (8.5-10.1); CREATININE SERUM 0.83 MG/DL (0.60-1.30); POTASSIUM 4.2 MMOL/L (3.6-5.0); TOTAL PROTEIN 6.8 GM/DL (6.4-8.2)
== END 2023-02-14 | disposition home or self-care (01) ==
LOC: ONC 08:45
PROVIDERS: ATTEND Internal Medicine Hematology & Oncology
DX: K64.5 Perianal venous thrombosis (principal); I65.29 Occlusion and stenosis of unspecified carotid artery; I10 Essential (primary) hypertension; E78.2 Mixed hyperlipidemia
CPT/HCPCS: 36415; 80053; 83615; 85025

== ENCOUNTER 2023-03-02 14:42 | Inpatient (IN) | payer MEDICARE, BC ==
[~2023-03-02] VITALS: Ht 167.6 cm; Wt 84.3 kg
--- NOTE | 2023-03-02 15:00 | ED General ---
General Chief Complaint: Chest Wall Stated Complaint: INJ RIGHT SHOULDER Source of Information: Patient Exam Limitations: No Limitations History of Present Illness Date Seen by Provider: Mar 02, 2023 Time Seen by Provider: 14:57 Initial Comments Patient is a 77-year-old female who presents to ED with right shoulder and right sided rib pain. Patient fell about 45 minutes ago. Patient states she was moving a freezer at home when she lost her balance fell hitting the floor on her right shoulder right side of ribs. She states she is able to move the right shoulder but having pain with deep inspiration or certain movements to the right side of ribs. Denies any bruising or swelling. Denies taking anything for pa in. She denies hitting her head or loss of consciousness or on blood thinners. Denies of any neck pain, middle lower back pain, abdominal pain, headache, hip pain. Patient with a steady gait. She Was able to ambulate into the ED by POV. Refused anything for pain. Allergies and Home Medications Allergies Coded Allergies: No Known Drug Allergies (Verified , 07/29/07) Patient Home Medication List Home Medication List Reviewed: Yes Ascorbic Acid (Vitamin C) 500 Mg Tablet, 500 MG PO DAILY, (Reported) Entered as Reported by: JORDON HEBERT on 10/12/15857 Cholecalciferol (Vitamin D3) (Vitamin D) 1,000 Unit Tablet, 1,000 UNIT PO BID, (Reported) Entered as Reported by: JORDON HEBERT on 10/12/15857 Evolocumab (Repatha Pushtronex) 420 Mg/3.5 Ml Wear.injct, 420 MG SQ monthly, (Reported) Entered as Reported by: MONICA ARORA on 03/21/21 135 Loratadine (Loratadine) 10 Mg Tablet, 10 MG PO DAILY, (Reported) Entered as Reported by: JORDON HEBERT on 10/12/15857 Meloxicam (Meloxicam) 7.5 Mg Tablet, 7.5 MG PO BID, (Reported) Entered as Reported by: MONICA ARORA on 03/21/21 1358 Multivitamin (Multivitamins) 1 Each Capsule, 1 EACH PO DAILY, (Reported) Entered as Reported by: JORDON HEBERT on 10/12/15857 Omeprazole (Omeprazole) 40 Mg Capsule.dr, 40 MG PO DAILY, (Reported) Entered as Reported by: MONICA ARORA on 03/21/21 135 Pioglitazone HCl (Actos) 30 Mg Tablet, 30 MG PO DAILY, (Reported) Entered as Reported by: MONICA ARORA on 03/21/21 1358 Valsartan (Valsartan) 40 Mg Tablet, 40 MG PO DAILY, (Reported) Entered as Reported by: MONICA ARORA on 03/21/21 135 Vitamin B Complex (B Complex) 1 Each Tablet, 1 EACH PO DAILY, (Reported) Entered as Reported by: JORDON HEBERT on 10/12/15 0858 Review of Systems Review of Systems Constitutional: No chills, No diaphoresis, No malaise, No weakness EENTM: No hearing loss, No ear pain Respiratory: No cough, No dyspnea on exertion, No short of breath; other (rigth sided rib pain) Cardiovascular: No chest pain, No edema Gastrointestinal: No abdominal pain, No diarrhea, No nausea, No vomiting Genitourinary: No decreased output, No discharge Musculoskeletal: No back pain; joint pain, joint swelling, muscle pain Skin: No change in color, No change in hair/nails All Other Systems Reviewed Negative Unless Noted: Yes Past Uxafqgx-Coforf-Nvjxoq Hx Patient Social History Tobacco Use?: No Substance use?: No Alcohol Use?: No Pt feels they are or have been: No Immunizations Up To Date First/Initial COVID19 Vaccinat: 09/07 Second COVID19 Vaccination Peter: 10/08 Third COVID19 Vaccination Date: 09/07 Seasonal Allergies Seasonal Allergies: Yes Past Medical History Surgeries: Yes (left KNEE , PORT placed and removed, BX THROAT) Orthopedic, Tonsillectomy Respiratory: No Cardiac: Yes High Cholesterol Neurological: No Reproductive Disorders: No Genitourinary: No Gastrointestinal: Yes Diverticulosis, Hemorrhoids Musculoskeletal: No Endocrine: Yes Diabetes, Non-Insulin dep HEENT: No (wears glasses) Tinnitis Hearing Impairment: Denies Cancer: Yes (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 6.0oz. 81.276648ob; 30.11 BMI Method:Stated General Appearance: No Apparent Distress, WD/WN Eyes: Bilateral Eye Normal Inspection, Bilateral Eye PERRL, Bilateral Eye EOMI HEENT: PERRL/EOMI, TMs Normal, Normal ENT Inspection, Pharynx Normal Neck: Full Range of Motion, Normal Inspection, Non Tender, Supple Respiratory: Lungs Clear, Normal Breath Sounds, No Accessory Muscle Use, No Respiratory Distress, Other (Tenderness to the right lateral breast. No crepitus or step-off. Lung sounds noted throughout) Cardiovascular: Regular Rate, Rhythm, No Edema, No Gallop, No JVD, No Murmur Gastrointestinal: Normal Bowel Sounds, No Organomegaly, No Pulsatile Mass, Non Tender Back: Normal Inspection, No CVA Tenderness, No Vertebral Tenderness Extremity: Normal Capillary Refill, Normal Inspection, Normal Range of Motion, Non Tender Neurologic/Psychiatric: Alert, Oriented x3, No Motor/Sensory Deficits, Normal Mood/Affect, grocery stocker II-XII Norm as Tested Skin: Normal Color, Warm/Dry Progress/Results/Core Measures Suspected Sepsis SIRS Temperature: Pulse: 83 Respiratory Rate: 16 Laboratory Tests 03/02/23 15:55: White Blood Count 5.0 Blood Pressure 133 /89 Mean: 104 Laboratory Tests 03/02/23 15:55: Platelet Count 173 Results/Orders Lab Results Laboratory Tests Test 03/02/23 15:55 Range/Units White Blood Count 5.0 4.3-11.0 10^3/uL Red Blood Count 4.29 3.80-5.11 10^6/uL Hemoglobin 13.0 11.5-16.0 g/dL Hematocrit 40 35-52 % Mean Corpuscular Volume 93 80-99 fL Mean Corpuscular Hemoglobin 30 25-34 pg Mean Corpuscular Hemoglobin Concent 33 32-36 g/dL Red Cell Distribution Width 14.7 H 10.0-14.5 % Platelet Count 173 130-400 10^3/uL Mean Platelet Volume 9.0 9.0-12.2 fL Immature Granulocyte % (Auto) 1 % Neutrophils (%) (Auto) 61 42-75 % Lymphocytes (%) (Auto) 24 12-44 % Monocytes (%) (Auto) 12 0-12 % Eosinophils (%) (Auto) 3 0-10 % Basophils (%) (Auto) 1 0-10 % Neutrophils # (Auto) 3.1 1.8-7.8 10^3/uL Lymphocytes # (Auto) 1.2 1.0-4.0 10^3/uL Monocytes # (Auto) 0.6 0.0-1.0 10^3/uL Eosinophils # (Auto) 0.1 0.0-0.3 10^3/uL Basophils # (Auto) 0.0 0.0-0.1 10^3/uL Immature Granulocyte # (Auto) 0.0 0.0-0.1 10^3/uL Albumin 3.9 3.2-4.5 GM/DL My Orders Orders - PAYAL YOUNGBLOOD Shoulder, Right, 3 Views (03/02/23 14:56) Ribs, Right 2-3 Views (03/02/23 14:56) Ibuprofen Tablet (Motrin Tablet) (03/02/23 15:15) Cbc With Automated Diff (03/02/23 15:51) Comprehensive Metabolic Panel (03/02/23 15:51) Medications Given in ED Current Medications Medications Dose Ordered Sig/Bev Route Start Time Stop Time Status Last Admin Dose Admin Ibuprofen 600 mg ONCE ONCE PO 03/02/23 15:15 03/02/23 15:16 DC 03/02/23 15:08 600 MG Vital Signs/I&O 03/02/23 14:52 Temp 35.1 Pulse 83 Resp 16 B/P (MAP) 133/89 (104) Pulse Ox 93 Capillary Refill : Less Than 3 Seconds Blood Pressure Mean: 104 Departure Communication (PCP) Patient presents the ED after a mechanical fall. She fell while moving a freezer. Hit the floor on her right shoulder right-sided ribs. Denies hitting her head or loss of consciousness. No cervical, thoracic or midline tenderness. Pain with deep inspiration to the right sided rib. No crepitus or step-off. Pain Controlled when she holds her shoulder and right arm to her chest. She denies shortness of breath, cough, abdominal pain vomiting, diarrhea, headache. Due to mechanism of injury chest x-ray emphasizing the ribs as well as her right shoulder was ordered. Right shoulder was negative for fracture. Right rib x- ray was negative for rib fracture but did note a moderate right apical pneumothorax. Patient oxygen level 95% on room air. No history of COPD or cor onary artery disease. Type II diabetic controlled with medication. Otherwise healthy. Patient was placed on 100% nonrebreather. Patient was discussed with Dr. Aguilera trauma surgeon. Did discussed admission versus discharge. I do not feel comfortable discharging patient and he agreed to accept. Recommend spirometer, albuterol nebulizer treatments Q8. IV and oral pain medication as needed. Chest x-ray in the morning. Recommended no chest tube at this time. If she decompensates we will intervene with chest tube. Patient agrees with admission. Impression Primary Impression: Pneumothorax Disposition: ADMITTED INPATIENT Condition: Stable Admissions Decision to Admit Reason: Admit from ER (General) Decision to Admit/Date: Mar 02, 2023 Time/Decision to Admit Time: 15:51 Departure-Patient Inst. Decision time for Depature: 15:51 Referrals: MARYURI HOPKINS MD (PCP/Family) Primary Care Physician PAYAL YOUNGBLOOD Mar 02, 2023 15:00
[2023-03-02] MEDS ORDERED: IBUPROFEN 600 MG (MOTRIN) TAB PO ONE (15:15)
--- NOTE | 2023-03-02 15:33 | Diagnostic Imaging Report ---
INDICATION: Right shoulder pain. Fall. FINDINGS: There is no glenohumeral joint dislocation. AC joint alignment is normal. The proximal humerus demonstrates no fracture. There is AC joint spurring. There is no fracture of the clavicle or scapula. There is a moderate right apical pneumothorax. Impression: 1. AC joint osteoarthritis. No glenohumeral joint dislocation or malalignment. No acute fracture. 2. Moderate right apical pneumothorax. Dictated by: Dictated on workstation # [id number]
--- NOTE | 2023-03-02 15:38 | Diagnostic Imaging Report ---
Right-sided rib series. INDICATION: Fall. Shoulder and rib pain. FINDINGS: There is a moderate right apical pneumothorax. The right lung is clear. There is no identified right-sided rib fracture or suspicious bone lesion. Heart size appears normal. IMPRESSION: 1. Moderate right apical pneumothorax. 2. No identified rib fracture. Dictated by: Dictated on workstation # [id number]
[2023-03-02 16:17] LABS: BASOPHILS % (AUTO) 1 % (0-10); EOSINOPHILS # (AUTO) 0.1 10^3/uL (0.0-0.3); EOSINOPHILS % (AUTO) 3 % (0-10); HEMATOCRIT 40 % (35-52); LYMPHOCYTES # (AUTO) 1.2 10^3/uL (1.0-4.0); LYMPHOCYTES % (AUTO) 24 % (12-44); MEAN CORPUSCULAR HEMOGLOBIN 30 pg (25-34); MEAN CORPUSCULAR HGB CONC 33 g/dL (32-36); MEAN CORPUSCULAR VOLUME 93 fL (80-99); MONOCYTES # (AUTO) 0.6 10^3/uL (0.0-1.0); MONOCYTES % (AUTO) 12 % (0-12); NEUTROPHILS # (AUTO) 3.1 10^3/uL (1.8-7.8); NEUTROPHILS % (AUTO) 61 % (42-75); PLATELET COUNT 173 10^3/uL (130-400)
[2023-03-02 16:31] LABS: ALBUMIN 3.9 GM/DL (3.2-4.5)
[2023-03-02 16:32] LABS: POTASSIUM 3.9 MMOL/L (3.6-5.0)
[2023-03-02 16:33] LABS: CALCIUM 9.6 MG/DL (8.5-10.1)
[2023-03-02 16:36] LABS: BILIRUBIN,TOTAL 0.4 MG/DL (0.1-1.0)
[2023-03-02 16:38] LABS: CREATININE SERUM 0.88 MG/DL (0.60-1.30)
[2023-03-02] MEDS ORDERED: ESCI20TA PO (16:50)
[2023-03-02] MEDS ORDERED: OMEG100032 PO ×2 (16:51→16:52)
[2023-03-02] MEDS ORDERED: morphine INJ 4 MG/ML 1 ML (VIAL/SYRINGE) IV PRN (17:00)
[2023-03-02 17:04] VITALS: BP 131/64
[2023-03-02] MEDS: KETOROLAC 15 MG/ML VIAL IV PRN ×2 (18:43→23:41)
[2023-03-02 19:32] VITALS: BP 125/72
[2023-03-02] MEDS: OMEGA 3 (FISH OIL) 1000 MG CAP PO SCH (21:29)
[2023-03-02] MEDS: LORATADINE (CLARITIN) 10 MG TAB PO SCH (21:29)
[2023-03-02] MEDS: VITAMIN D3 25 MCG (1,000 UNITS) TABLET PO SCH (21:29)
[2023-03-02] MEDS: RT-ALBUTEROL SULF 2.5 MG/3 ML PRE-MIX VIAL IH SCH (22:19)
[2023-03-02 23:15] VITALS: BP 123/73
[2023-03-03 03:37] VITALS: BP 125/76
[2023-03-03] MEDS: KETOROLAC 15 MG/ML VIAL IV PRN ×2 (05:56→15:32)
[2023-03-03] MEDS: RT-ALBUTEROL SULF 2.5 MG/3 ML PRE-MIX VIAL IH SCH ×3 (06:50→22:07)
[2023-03-03] MEDS ORDERED: MULTIVIT W/MINERALS TAB (THERAGRAN M) PO SCH (07:00)
[2023-03-03 07:22] VITALS: BP 136/76
[2023-03-03] MEDS: ASCORBIC ACID (VIT C) 500 MG TABLET PO SCH (08:36)
[2023-03-03] MEDS: OMEGA 3 (FISH OIL) 1000 MG CAP PO SCH ×2 (08:36→20:30)
[2023-03-03] MEDS: MULTIVIT W/MINERALS TAB (THERAGRAN M) PO SCH (08:36)
[2023-03-03] MEDS: VITAMIN D3 25 MCG (1,000 UNITS) TABLET PO SCH ×2 (08:36→20:30)
[2023-03-03] MEDS: VALSARTAN 80 MG (DIOVAN) TAB PO SCH (08:40)
[2023-03-03] MEDS: PIOGLITAZONE 30MG (ACTOS) TAB PO SCH (08:47)
[2023-03-03] MEDS ORDERED: NON-FORMULARY MEDICATION 1 EA EA (Vitamin B Complex (B Complex) 1 EACH) PO SCH (09:00)
--- NOTE | 2023-03-03 09:27 | Diagnostic Imaging Report ---
EXAMINATION: CHEST 1 VIEW, AP/PA ONLY. INDICATION: Pneumothorax. COMPARISON: Chest radiograph from prior day. FINDINGS: The right-sided pneumothorax has significantly increased in size with near complete collapse of the right lung; however, there is no mediastinal shift to suggest a tension component. The left lung remains clear and well aerated. No left-sided pneumothorax. No pleural effusion. Normal cardiac silhouette. IMPRESSION: Increased size of the now large right pneumothorax; however, there are no radiographic features of tension. Dictated by: Dictated on workstation # [id number]
[2023-03-03] MEDS ORDERED: SITA100T12 PO (11:03)
[2023-03-03] MEDS ORDERED: ASPI-1238 PO (11:03)
[2023-03-03] MEDS ORDERED: MULT-1136 PO (11:03)
[2023-03-03] MEDS ORDERED: CHOL-34 PO (11:03)
[2023-03-03 11:30] VITALS: BP 132/80
[2023-03-03 15:59] VITALS: BP 132/73
[2023-03-03] MEDS ORDERED: HYDROcodone/APAP 7.5 MG/325 MG (LORTAB, LORCET PLUS) TABLET PO PRN (19:15)
[2023-03-03] MEDS ORDERED: morphine INJ 4 MG/ML 1 ML (VIAL/SYRINGE) IVP PRN (19:15)
[2023-03-03] MEDS ORDERED: LIDOCAINE 1% INJ 10 ML VIAL ONE (19:18)
[2023-03-03 19:26] VITALS: BP 147/82
--- NOTE | 2023-03-03 19:34 | HISTORY AND PHYSICAL ---
ATTENDING PRIMARY CARE PHYSICIAN: Zeus Messina M.D. HISTORY OF PRESENT ILLNESS: The patient is a 77-year-old female who presented to the Emergency Department by private vehicle after a fall on her right back and shoulder. She was helping to remove a freezer. She lost her balance, fell backward and again hit the right posterior ribs as well as the right shoulder. She stated that there was pain upon movement of the shoulder; however, there was also pain upon deep inspiration as well as certain movements of the right ribcage. There was no bruising or ecchymosis. There was also no crepitance. She does not report hitting her head and there was no loss of consciousness. There was no neck, lower back, abdominal pain as well as no neurologic issues or visual changes. The patient's discomfort was significant and it was decided to admit the patient for pain control and monitoring. The patient was also found to have a small right sided pneumothorax, which needed to be monitored. PAST MEDICAL HISTORY: Hypercholesterolemia, diabetes, history of large cell follicular non-Hodgkin's lymphoma, diverticulosis, degenerative joint disease. PAST SURGICAL HISTORY: Port placement, tonsillectomy, left knee surgery. ALLERGIES: No known drug allergies. MEDICATIONS: Evolocumab 420 mg subcutaneous monthly, loratadine 10 mg daily, meloxicam 7.5 mg b.i.d., omeprazole 40 mg daily, pioglitazone 30 mg daily, valsartan 40 mg daily. SOCIAL HISTORY: Negative smoking, negative for alcohol. FAMILY HISTORY: Noncontributory. VITAL SIGNS: Temperature 37.5, blood pressure 132/73, pulse 99, respirations 18, pulse ox 91% on 3 liters nasal cannula. REVIEW OF SYSTEMS: A well-nourished female, currently in no acute distress. She is experiencing some exertional shortness of breath as well as continued pain along the right shoulder as well as a right posterior chest. No crepitance. No nausea or vomiting. No diarrhea or constipation. No fever, chills, no recent inadvertent weight loss. All other review of systems negative. PHYSICAL EXAMINATION: CHEST: Decreased breath sounds, right lung. Adequate breath sounds on the left lung space. HEART: Regular. No murmurs. EXTREMITIES: No lower extremity edema. Negative Homans sign. HEENT: No scleral icterus. No cervical lymphadenopathy. ABDOMEN: Soft, nontender, nondistended. SKIN: Warm, dry. LABORATORY DATA: WBC 5.0, hemoglobin 13.0, hematocrit 40, platelets 173, BUN 18, creatinine 0.88. Liver function enzymes normal. ASSESSMENT AND PLAN: A 77-year-old female with right pneumothorax with no fractures identified. Due the pain and discomfort upon ambulation and movements, we admitted her for observation; however, followup chest x-ray did show a significant worsening of the right sided pneumothorax and we will now proceed with placement of a Thora-Vent in hopes of evacuating all of the pneumothorax and retention of the lung, and if this is accomplished, we will then remove the Thora-Vent. Job ID: [id number] DocumentID: [id number] Dictated Date: 03/03/2023 19:05:18 Mission Planner Date: 03/03/2023 19:32:00 Dictated By: KYM ROSE MD
[2023-03-03] MEDS ORDERED: LIDOCAINE 1% INJ 10 ML VIAL INJ NR (19:55)
[2023-03-03] MEDS: LORATADINE (CLARITIN) 10 MG TAB PO SCH (20:31)
[2023-03-03 23:29] VITALS: BP 125/74
--- NOTE | 2023-03-04 02:15 | OPERATIVE REPORT ---
DATE OF SERVICE: 03/03/2023 ATTENDING PRIMARY CARE PHYSICIAN: Dr. Messina. PREOPERATIVE DIAGNOSIS: Traumatic right pneumothorax. POSTOPERATIVE DIAGNOSES: Traumatic right pneumothorax. PROCEDURE: Placement of right Thora-Vent chest tube. SURGEON: Kym Rose MD ANESTHESIA: Local. ESTIMATED BLOOD LOSS: Minimal. FINDINGS: Air within the pleural space. No fluid. DISPOSITION: The patient tolerated the procedure well. INDICATIONS: The patient is a 77-year-old female who presented to the Emergency Department by private vehicle after a fall on her right back and shoulder. She was helping to remove the freezer. She lost her balance, fell backwards and hit her right posterior ribs as well as right shoulder and then had pain upon movement of the shoulder and upon deep inspiration and certain movements of her thoracic region. There was no bruising or ecchymosis. There was also no crepitance. She did not report hitting her head as well as no loss of consciousness. She also did not have any neurologic issues. The patient's initial x-ray showed only a very small pneumothorax; however, the following day, this had increased in size significantly. The patient will need a right-sided chest tube to evacuate the air. DESCRIPTION OF PROCEDURE: The superior and anterolateral chest were prepped and draped in standard surgical fashion. 1% lidocaine was then used to anesthetize the skin, subcutaneous tissue and muscle layers as well as the parietal pleura. A transverse skin incision was then made using a #11 blade. A 13-Divehi Thora-Vent catheter was then placed with the trocar at approximately the fourth intercostal space over the rib. The trocar was then removed and the catheter advanced. The catheter was then connected to suction where a significant amount of air was suctioned out. The patient also did have the cough reflex during reexpansion of the lung. The Thora-Vent apparatus was then affixed to the skin and left to low wall suction. Good hemostasis was observed. The patient tolerated the procedure well. We will continue with suction overnight and get a repeat chest x-ray in the morning and if completely expanded, we will then place to waterseal and then repeat another x-ray the following morning. Once fully expanded on waterseal and is asymptomatic, we will then remove the chest tube. Job ID: [id number] DocumentID: [id number] Dictated Date: 03/03/2023 21:38:41 Typing Pool Supervisor Date: 03/04/2023 02:13:00 Dictated By: KYM ROSE MD
[2023-03-04 03:30] VITALS: BP 113/64
[2023-03-04] MEDS: RT-ALBUTEROL SULF 2.5 MG/3 ML PRE-MIX VIAL IH SCH ×3 (06:47→20:41)
[2023-03-04 07:31] VITALS: BP 109/67
--- NOTE | 2023-03-04 08:44 | Diagnostic Imaging Report ---
EXAMINATION: Portable erect AP chest at 0556 hours. INDICATION: Pneumothorax. FINDINGS: The previous exam of 03/03/2023 noted a large pneumothorax on the right. In the interval since the prior study, a Thora-Vent device has been inserted on the right. The right lung is nearly completely reexpanded. The left lung remains clear. The heart is stable in size. The mediastinum is not widened. The osseous structures are intact. IMPRESSION: 1. The appearance of the chest has improved considerably following the insertion of the Thora-Vent device on the right. The pneumothorax seen previously on the right has nearly completely (if not completely) resolved. 2. There is no acute cardiopulmonary abnormality noted otherwise. Dictated by: Dictated on workstation # [id number]
--- NOTE | 2023-03-04 08:47 | Consultation ---
JENI WELSH 03/04/23 0847: HPI History of Present Illness: HPI/Chief Complaint Twyla Wright is a 77yo F with past medical history of HLD, diabetes, and large cell follicular non-Hodgkin's lymphoma who presented to the ED on 03/02 after mechanical fall at home onto her R shoulder and lateral RUE. Imaging was negative for fractures of the humerus, scapula, or ribs. She developed a large pnuemothorax on the R. General surgery placed chest tube last night. Follow up x ray is improved with lung markings present in R upper and middle lobes. She reports pain at chest tube site that is manageable. Still has residual soreness over lateral aspect of R shoulder with mild bruising. She reports significant improvement in her breathing after chest tube was placed. She is still on 3L by nasal cannula, patient reports she thinks she could wean off completely without issue. She does not use oxygen at home. She denies N/V/D, fever, chills, pa lpitations. She denies hx of falls but does reports she has felt increasingly dizzy when standing and moving in bed at night. Source: patient Exam Limitations: no limitations Date Seen 03/04/23 Attending Physician Zeus Messina MD PCP Admitting Physician: Kamila Aguilera MD Attending Physician: Kamila Aguilera MD Referring Physician Date of Admission Mar 03, 2023 at 11:31 Home Medications & Allergies Home Medications Reviewed patient Home Medication Reconciliation performed by pharmacy medication reconciliations radio technician and/or nursing. Patients Allergies have been reviewed. Allergies Allergies Coded Allergies Bmkkmuo-WYX-OtI Reductase Inhibitor (Verified Allergy, Unknown, MUSCLE ACHES, 03/03/23) Past Eyeqhnz-Dkhlbp-Zynyrv Hx Patient Social History Tobacco Use?: No Smoking Status: Never a Smoker Smokeless Tobacco Frequency: Never a User Substance use?: No Alcohol Use?: No Pt feels they are or have been: No Immunizations Up To Date Date of Influenza Vaccine: May 23, 2020 First/Initial COVID19 Vaccinat: 09/07 Second COVID19 Vaccination Peter: 10/08 Date of Pneumonia Vaccine: Sep 18, 2010 Seasonal Allergies Seasonal Allergies: Yes Current Status status: No status: No Advance Directives: No Communicates: Verbally Primary Language: Setswana Preferred Spoken Language: Setswana Is interpretation needed?: No Sensory deficits: Vision impairment Implanted or Applied Medical D: None Past Medical History Surgeries: Orthopedic, Tonsillectomy High Cholesterol Diverticulosis, Hemorrhoids Diabetes, Non-Insulin dep Tinnitis Hearing Impairment: Denies Lymphoma Did You Recieve Any Treatments: Yes What Type of Treatment Did You: Chemotherapy Blood Disorders: No Adverse Reaction/Blood Tranf: No Family Medical History No Pertinent Family Hx Review of Systems Constitutional: No chills, No diaphoresis, No fever EENTM: No hearing loss, No vision loss Respiratory: No cough; short of breath (much improved); No wheezing Cardiovascular: chest pain (at site of thora vent, worse with inspiration); No palpitations Gastrointestinal: No abdominal pain, No nausea, No vomiting Genitourinary: No dysuria, No hematuria Musculoskeletal: back pain Skin: other (ecchymosis to R shoulder) Psychiatric/Neurological: Denies Headache, Denies Numbness, Denies Weakness Physical Exam Physical Exam Vital Signs Vital Signs - First Documented 03/02/23 03/02/23 03/02/23 14:52 16:26 19:32 Temp 35.1 Pulse 83 Resp 16 B/P (MAP) 133/89 (104) Pulse Ox 93 O2 Delivery OxyMask O2 Flow Rate 3.00 Capillary Refill : Less Than 3 Seconds Height, Weight, BMI Height: 5'6.00" Weight: 180lbs. 6.0oz. 81.413780rf; 30.01 BMI Method:Stated General Appearance: No Apparent Distress, WD/WN Eyes: Bilateral Eye Normal Inspection, Bilateral Eye PERRL, Bilateral Eye EOMI HEENT: PERRL/EOMI, Moist Mucous Membranes Neck: Non Tender, Supple Respiratory: Lungs Clear, No Accessory Muscle Use, No Respiratory Distress, Other (lung sounds noted throughout bilateral lungs) Cardiovascular: Regular Rate, Rhythm, No Murmur, Normal Peripheral Pulses Gastrointestinal: Non Tender, Soft Rectal: Deferred Extremity: Normal Capillary Refill, Non Tender Neurologic/Psychiatric: Alert, Oriented x3, Normal Mood/Affect Skin: Normal Color, Warm/Dry, Ecchymosis (to R shoulder) Results Results/Procedures Labs Laboratory Tests 03/02/23 15:55 03/04/23 09:44 Patient resulted labs reviewed. Imaging: Reviewed Imaging Films, Reviewed Imaging Report Assessment/Plan Assessment and Plan Assess & Plan/Chief Complaint Traumatic R pneumothorax Mechanical fall R shoulder, rib, and chest pain General surgery managing, Thora Vent placed last night Follow up CXR showed almost complete resolution of pneumothorax on R Chest tube remains in place, managed by general surgery Pain control adequate Continue lortab and ketorolac as needed, has not needed morphine today No fractures identified on imaging done in ED PT/OT HLD resume home med of fish oil gets monthly repatha as well, managed by Dr Britton Non insulin dependent diabetes mellitus hyperglycemic at 237 on admit resume home meds Hx of nonhodgkins lymphoma Diet- regular DVT ppx- lovenox 40mg SQ daily Code status- full DENISE ANSARI DO 03/04/23 1935: Supervisory-Addendum Brief Verification & Attestation Participated in pt care: history, MDM, physical Personally performed: exam, history, MDM, supervision of care Care discussed with: Medical Student Procedures: n/a Results interpretation: Verified all documentation Verification and Attestation of Medical Student E/M Service A medical student performed and documented this service in my presence. I reviewed and verified all information documented by the medical student and made modifications to such information, when appropriate. I personally performed the physical exam and medical decision making. Denise Ansari Mar 04, 2023,19:35 JENI WELSH Mar 04, 2023 08:47 DENISE ANSARI DO Mar 04, 2023 19:35
[2023-03-04] MEDS: VALSARTAN 80 MG (DIOVAN) TAB PO SCH (08:50)
[2023-03-04] MEDS: MULTIVIT W/MINERALS TAB (THERAGRAN M) PO SCH (08:51)
[2023-03-04] MEDS: OMEGA 3 (FISH OIL) 1000 MG CAP PO SCH ×2 (08:51→20:24)
[2023-03-04] MEDS: ASCORBIC ACID (VIT C) 500 MG TABLET PO SCH (08:51)
[2023-03-04] MEDS: VITAMIN D3 25 MCG (1,000 UNITS) TABLET PO SCH ×2 (08:51→20:24)
[2023-03-04] MEDS: PIOGLITAZONE 30MG (ACTOS) TAB PO SCH (08:51)
[2023-03-04] MEDS: KETOROLAC 15 MG/ML VIAL IV PRN ×2 (08:54→16:59)
[2023-03-04] MEDS: PANTOPRAZOLE 40 MG (PROTONIX) VIAL IV SCH (09:02)
[2023-03-04] MEDS ORDERED: diphenhydrAMINE 25 MG TAB (BENADRYL) PO PRN (09:30)
[2023-03-04] MEDS ORDERED: EVOLOCUMAB 420 MG SQ SCH (09:30)
[2023-03-04] MEDS ORDERED: ALPRAZolam 0.25 MG (XANAX) TAB PO PRN (09:30)
[2023-03-04] MEDS ORDERED: ONDANSETRON 4 MG/2 ML (SDV) Z0FRAN IVP PRN (09:30)
[2023-03-04] MEDS ORDERED: MENTHOL/ZINC OXIDE (CALMOSEPTINE) 113 GM TUBE TP PRN (09:30)
[2023-03-04] MEDS ORDERED: MELATONIN 3 MG TABLET PO PRN (09:30)
[2023-03-04] MEDS ORDERED: CALCIUM CARBONATE 500 MG (TUMS) TAB.CHEW PO PRN (09:30)
[2023-03-04] MEDS ORDERED: ONDANSETRON 4 MG (ZOFRAN) ORAL DISSOLVE TAB PO PRN (09:30)
[2023-03-04] MEDS ORDERED: DOCUSATE SODIUM 100 MG (COLACE) CAP PO PRN (09:30)
[2023-03-04] MEDS ORDERED: LACTULOSE SYRUP 10GM/15ML (ENULOSE) 30ML UDC PO PRN (09:30)
[2023-03-04 09:52] LABS: BASOPHILS % (AUTO) 0 % (0-10); EOSINOPHILS # (AUTO) 0.1 10^3/uL (0.0-0.3); EOSINOPHILS % (AUTO) 2 % (0-10); HEMATOCRIT 37 % (35-52); HEMOGLOBIN 11.6 g/dL (11.5-16.0); LYMPHOCYTES # (AUTO) 0.9 10^3/uL (1.0-4.0); LYMPHOCYTES % (AUTO) 16 % (12-44); MEAN CORPUSCULAR HEMOGLOBIN 30 pg (25-34); MEAN CORPUSCULAR HGB CONC 32 g/dL (32-36); MEAN CORPUSCULAR VOLUME 94 fL (80-99); MEAN PLATELET VOLUME 8.6 fL (9.0-12.2); MONOCYTES # (AUTO) 0.7 10^3/uL (0.0-1.0); MONOCYTES % (AUTO) 13 % (0-12); NEUTROPHILS # (AUTO) 3.9 10^3/uL (1.8-7.8); NEUTROPHILS % (AUTO) 69 % (42-75); PLATELET COUNT 138 10^3/uL (130-400); WHITE BLOOD COUNT 5.7 10^3/uL (4.3-11.0)
[2023-03-04] MEDS ORDERED: SENNA W/DOCUSATE (SENOKOT S) TABLET PO NR (10:00)
[2023-03-04 10:01] LABS: ALBUMIN 3.3 GM/DL (3.2-4.5); POTASSIUM 4.4 MMOL/L (3.6-5.0)
[2023-03-04 10:02] LABS: CALCIUM 8.9 MG/DL (8.5-10.1)
[2023-03-04 10:05] LABS: BILIRUBIN,TOTAL 0.6 MG/DL (0.1-1.0)
[2023-03-04 10:07] LABS: CREATININE SERUM 0.74 MG/DL (0.60-1.30)
--- NOTE | 2023-03-04 10:22 | Physical Therapy Evaluation ---
PT Evaluation-General Medical Diagnosis Admission Date Mar 03, 2023 at 11:31 Medical Diagnosis: right pneumonthorax Onset Date: Mar 03, 2023 Therapy Diagnosis Therapy Diagnosis: debility Height/Weight Height (Feet): 5 Height (Inches): 6.00 Weight (Pounds): 180 Weight (Ounces): 6.0 Precautions Precautions/Isolations: Standard Precautions Referral Physician: Jeff Reason for Referral: Evaluation/Treatment Medical History Pertinent Medical History: DM, Lymphoma Current History ambulated into the ER secondary to falling while moving a freezer landing on her right shoulder/ribs Reviewed History: Yes Social History Home: Single Level Current Living Status: Alone Entry Into Home: Stairs Without Railing PT Steps Into Home: 8 Prior Prior Level of Function SCALE: Activities may be completed with or without assistive devices. 8-Rhpbhqzyvf-ctbfsmg completes the activity by him/herself with no assistance from a helper. 5-Set-up or Clean-up Assistance-helper sets up or cleans up; patient completes a ctivity. [place] assists only prior to or following the activity. 4-Supervision or Touching Assistance-helper provides verbal cues and/or touching/steadying and/or contact guard assistance as patient completes activity. Assistance may be provided throughout the activity or intermittently. 3-Partial/Moderate Assistance-helper does LESS THAN HALF the effort. [place] lifts, holds or supports trunk or limbs, but provides less than half the effort. 2-Substantial/Maximal Assistance-helper does MORE THAN HALF the effort. [place] lifts or holds trunk or limbs and provides more than half the effort. 3-Vglmqjmbl-edxpyj does ALL the effort. Patient does none of the effort to complete the activity. Or, the assistance of 2 or more helpers is required for the patient to complete the activity. If activity was not attempted, code reason: 7-Patient Refused. 9-Not Applicable-not attempted and the patient did not perform the activity before the current illness, exacerbation or injury. 10-Not Attempted due to Environmental Limitations-(lack of equipment, weather restraints, etc.). 88-Not Attempted due to Medical Conditions or Safety Concerns. Bed Mobility: 6 Transfers (B,C,W/C): 6 Gait: 6 Stairs: 6 Indoor Mobility (Ambulation): Independent Stairs: Independent Prior Devices Use: None PT Evaluation-Current Subjective Patient reports she was suppose to play golf today but can't because she's here. Patient agrees to PT. Pain Numeric Pain Scale: 3 Location: Right Location Body Site: Side Pain Description: Acute Objective Patient Orientation: Normal For Age Attachments: Chest Tube, Oxygen ROM/Strength ROM Lower Extremities bilateral LE WFL Strength Lower Extremities 4/5 grossly bilateral LE all planes Integumentary/Posture Bowel Incontinence: No Bladder Incontinence: No Posture WFL Neuromuscular (Tone, Coordination, Reflexes) grossly intact Sensory Vision: Wears Glasses Hearing: Functional Transfers Sit to Lying (QC): 6 Lying to Sitting/Side of Bed(Q: 6 Sit to Stand (QC): 6 Gait Mode of Locomotion: Walk Anticipated Mode of Locomotion: Walk Walk 10 feet (QC): 6 Walk 50 ft with 2 Turns(QC): 6 Walk 150 ft (QC): 6 Distance: 150' Gait Assistive Device: None Comments/Gait Description functional gait sequence Balance Sitting Static: Normal Sitting Dynamic: Normal Standing Static: Normal Standing Dynamic: Normal Assessment/Needs Patient is currently at [facility] with all gross motor skills safely and does not require skilled PT intervention at this time. Rehab Potential: Fair PT Plan Treatment/Plan Treatment Plan: Discontinue PT Treatment Duration: Mar 04, 2023 Frequency: 1 time per week Estimated Hrs Per Day: .25 hour per day Patient and/or Family Agrees t: Yes Time Time In: 952 Time Out: 1005 DATE: Mar 04, 2023 Total Billed Treatment Time: 13 Total Billed Treatment 1 visit Mod 13 min MADALYN LUCAS PT Mar 04, 2023 10:22
[2023-03-04 11:37] VITALS: BP 95/56
[2023-03-04] MEDS: inSUlin ASPART (NovoLOG) 1 UNIT/0.01 ML (CHARGE PER UNIT) SC SCH ×3 (11:42→20:27)
[2023-03-04] MEDS: ENOXAPARIN 40 MG/0.4 ML (LOVENOX) SYR SC SCH (11:44)
--- NOTE | 2023-03-04 14:37 | Progress Note ---
Subjective Date Seen by a Provider: Mar 04, 2023 Time Seen by a Provider: 14:00 Subjective/Events-last exam doing well. no SOB. no cough/sputum production. ambulating well. Objective Exam Vital Signs Date Time Temp Pulse Resp B/P (MAP) Pulse Ox O2 Delivery O2 Flow Rate FiO2 03/04/23 14:24 96 Nasal Cannula 3.00 03/04/23 11:37 36.2 79 18 95/56 (69) 96 Nasal Cannula 3.00 03/04/23 09:00 94 Nasal Cannula 3.00 03/04/23 07:31 36.4 88 18 109/67 (81) 94 Nasal Cannula 3.00 03/04/23 06:48 96 Nasal Cannula 3.00 03/04/23 03:30 36.0 82 20 113/64 (80) 94 Nasal Cannula 3.00 3.00 03/03/23 23:29 37.1 97 20 125/74 (91) 94 Nasal Cannula 3.00 3.00 03/03/23 22:07 96 Nasal Cannula 3.00 03/03/23 21:00 96 Nasal Cannula 3.00 03/03/23 19:26 37.2 98 20 147/82 (103) 94 Nasal Cannula 3.00 03/03/23 15:59 37.5 99 18 132/73 (92) 91 Nasal Cannula 3.00 I & O 03/04/23 07:00 Intake Total 1550 ml Output Total 850 ml Balance 700 ml Capillary Refill : Less Than 3 Seconds General Appearance: No Apparent Distress HEENT: PERRL/EOMI Neck: Full Range of Motion Respiratory: Chest Non Tender, Normal Breath Sounds Cardiovascular: Regular Rate, Rhythm Gastrointestinal: normal bowel sounds, non tender, soft Extremity: Normal Capillary Refill Neurologic/Psychiatric: Alert, Oriented x3 Skin: Normal Color Lymphatic: No Adenopathy Results Lab Laboratory Tests 03/04/23 09:44: White Blood Count 5.7, Red Blood Count 3.90, Hemoglobin 11.6, Hematocrit 37, Mean Corpuscular Volume 94, Mean Corpuscular Hemoglobin 30, Mean Corpuscular Hemoglobin Concent 32, Red Cell Distribution Width 15.2H, Platelet Count 138, Mean Platelet Volume 8.6L, Immature Granulocyte % (Auto) 0, Neutrophils (%) (Auto) 69, Lymphocytes (%) (Auto) 16, Monocytes (%) (Auto) 13H, Eosinophils (%) (Auto) 2, Basophils (%) (Auto) 0, Neutrophils # (Auto) 3.9, Lymphocytes # (Auto) 0.9L, Monocytes # (Auto) 0.7, Eosinophils # (Auto) 0.1, Basophils # (Auto) 0.0, Immature Granulocyte # (Auto) 0.0, Sodium Level 136, Potassium Level 4.4, Chlor mili Level 102, Carbon Dioxide Level 27, Anion Gap 7, Blood Urea Nitrogen 21H, Creatinine 0.74, Estimat Glomerular Filtration Rate 82, BUN/Creatinine Ratio 28, Glucose Level 143H, Calcium Level 8.9, Corrected Calcium 9.5, Total Bilirubin 0.6, Aspartate Amino Transf (AST/SGOT) 21, Alanine Aminotransferase (ALT/SGPT) 20, Alkaline Phosphatase 53, Total Protein 6.0L, Albumin 3.3 03/04/23 11:20: Glucometer 117H Assessment/Plan Assessment/Plan Assess & Plan/Chief Complaint traumatic right PTX s/p chest tube placement. lung fully inflated on suction. will place on seal and repeat cxr in am. KYM ROSE MD Mar 04, 2023 14:37
[2023-03-04 15:22] VITALS: BP 119/68
[2023-03-04 19:16] VITALS: BP 163/64
[2023-03-04] MEDS: LORATADINE (CLARITIN) 10 MG TAB PO SCH (20:25)
[2023-03-04] MEDS: polyethylene glycoL POWDER 17 GM (MIRALAX) PACK PO SCH (20:25)
[2023-03-04] MEDS: SENNA W/DOCUSATE (SENOKOT S) TABLET PO SCH (20:25)
[2023-03-04] MEDS ORDERED: ASPIRIN E.C. 81 MG (ECOTRIN) TAB PO SCH (21:00)
[2023-03-04] MEDS ORDERED: VITAMIN D3 25 MCG (1,000 UNITS) TABLET PO SCH (21:00)
[2023-03-04] MEDS ORDERED: MELOXICAM 7.5 MG (MOBIC) TABLET PO SCH (21:00)
[2023-03-04 23:44] VITALS: BP 111/63
[2023-03-05 03:48] VITALS: BP 117/70
[2023-03-05] MEDS: inSUlin ASPART (NovoLOG) 1 UNIT/0.01 ML (CHARGE PER UNIT) SC SCH ×3 (05:23→15:32)
[2023-03-05] MEDS: RT-ALBUTEROL SULF 2.5 MG/3 ML PRE-MIX VIAL IH SCH ×2 (06:51→14:10)
[2023-03-05 07:50] VITALS: BP 128/59
[2023-03-05] MEDS: OMEGA 3 (FISH OIL) 1000 MG CAP PO SCH (08:12)
[2023-03-05] MEDS: ASCORBIC ACID (VIT C) 500 MG TABLET PO SCH (08:12)
[2023-03-05] MEDS: MULTIVIT W/MINERALS TAB (THERAGRAN M) PO SCH (08:12)
[2023-03-05] MEDS: VITAMIN D3 25 MCG (1,000 UNITS) TABLET PO SCH (08:12)
[2023-03-05] MEDS: PIOGLITAZONE 30MG (ACTOS) TAB PO SCH (08:12)
[2023-03-05] MEDS: VALSARTAN 80 MG (DIOVAN) TAB PO SCH (08:13)
[2023-03-05] MEDS: PANTOPRAZOLE 40 MG (PROTONIX) VIAL IV SCH (08:13)
[2023-03-05] MEDS: polyethylene glycoL POWDER 17 GM (MIRALAX) PACK PO SCH (08:13)
[2023-03-05] MEDS: SENNA W/DOCUSATE (SENOKOT S) TABLET PO SCH (08:13)
[2023-03-05] MEDS: ENOXAPARIN 40 MG/0.4 ML (LOVENOX) SYR SC SCH (08:14)
--- NOTE | 2023-03-05 08:46 | Diagnostic Imaging Report ---
Indication: Right pneumothorax, followup. Frontal chest obtained at 7:47 a.m. and is compared to yesterday. Heart and mediastinal silhouette are normal in appearance. There is no pneumothorax. The small caliber right chest tube is unchanged. There is no significant pleural fluid. Impression: No pneumothorax with small caliber right chest tube in place. No focal infiltrate or pleural fluid. Dictated by: Dictated on workstation # [id number]
[2023-03-05] MEDS ORDERED: NON-FORMULARY MEDICATION 1 EA EA (Multivitamin 1 EACH) PO SCH (09:00)
[2023-03-05] MEDS ORDERED: NON-FORMULARY MEDICATION 1 EA EA (Sitagliptin Phosphate (Januvia) 100 MG) PO SCH (09:00)
--- NOTE | 2023-03-05 09:05 | Progress Note ---
JENI WELSH [birth year]: Subjective Date Seen by a Provider: Mar 05, 2023 Time Seen by a Provider: 08:59 Subjective/Events-last exam Patient seen and examined at bedside this morning. She reports continued improvement in her breathing. She is no longer on the nasal cannula and is satting well and comfortable on room air. She complains of continued soreness and pain over the right side of her lateral chest related to her fall. She denies sharp or stabbing pain and describes it as achy. Suction on chest tube was DCed last night. Dr. Aguilera planning to remove it depending on results of today's chest xray. She reports minimal intermittent cough that is nonproductive. No sternal chest pain, palpitations, N/V/D. Has not had a BM since admission, reports this is usual for her and took miralax this morning. Review of Systems General: No Chills, No Night Sweats HEENT: No Head Aches, No Visual Changes Pulmonary: No Dyspnea; Cough Cardiovascular: Chest Pain (R lateral chest due to fall); No: Palpitations Gastrointestinal: No: Nausea, Vomiting, Abdominal Pain Genitourinary: No Dysuria, No Hematuria Musculoskeletal: shoulder pain, back pain Neurological: No: Weakness, Change in speech, Confusion Objective Exam Last Set of Vital Signs Vital Signs Date Time Temp Pulse Resp B/P (MAP) Pulse Ox O2 Delivery O2 Flow Rate FiO2 03/05/23 08:47 Room Air 03/05/23 07:50 36.5 88 18 128/59 (82) 91 03/05/23 06:52 0.00 Capillary Refill : Less Than 3 Seconds I&O Intake and Output 03/05/23 00:00 Intake Total 1870 ml Output Total 1575 ml Balance 295 ml Intake Oral 1870 ml Output Urine Total 1575 ml General: Alert, Oriented X3, Cooperative HEENT: Atraumatic, EOMI Neck: Supple Lungs: Clear to Auscultation (breath sounds present at R upper lobe where pneumo was), Normal Air Movement Heart: Regular Rate, Normal S1, Normal S2 Abdomen: Soft, No Tenderness Extremities: No Cyanosis, No Edema, Other (ecchymosis of R shoulder) Neuro: Normal Speech Psych/Mental Status: Mental Status NL, Mood NL Results Lab Laboratory Tests 03/04/23 09:44: White Blood Count 5.7, Red Blood Count 3.90, Hemoglobin 11.6, Hematocrit 37, Mean Corpuscular Volume 94, Mean Corpuscular Hemoglobin 30, Mean Corpuscular Hemoglobin Concent 32, Red Cell Distribution Width 15.2H, Platelet Count 138, Mean Platelet Volume 8.6L, Immature Granulocyte % (Auto) 0, Neutrophils (%) (Auto) 69, Lymphocytes (%) (Auto) 16, Monocytes (%) (Auto) 13H, Eosinophils (%) (Auto) 2, Basophils (%) (Auto) 0, Neutrophils # (Auto) 3.9, Lymphocytes # (Auto) 0.9L, Monocytes # (Auto) 0.7, Eosinophils # (Auto) 0.1, Basophils # (Auto) 0.0, Immature Granulocyte # (Auto) 0.0, Sodium Level 136, Potassium Level 4.4, Chloride Level 102, Carbon Dioxide Level 27, Anion Gap 7, Blood Urea Nitrogen 21H, Creatinine 0.74, Estimat Glomerular Filtration Rate 82, BUN/Creatinine Ratio 28, Glucose Level 143H, Calcium Level 8.9, Corrected Calcium 9.5, Total Bilirubin 0.6, Aspartate Amino Transf (AST/SGOT) 21, Alanine Aminotransferase (ALT/SGPT) 20, Alkaline Phosphatase 53, Total Protein 6.0L, Albumin 3.3 03/04/23 11:20: Glucometer 117H 03/04/23 16:05: Glucometer 166H 03/04/23 20:13: Glucometer 150H 03/05/23 05:20: Glucometer 120H Assessment/Plan Assessment/Plan Assess & Plan/Chief Complaint Traumatic R pneumothorax Mechanical fall R shoulder, rib, and chest pain General surgery managing, Thora Vent in place, suction off Follow up CXR showed almost complete resolution of pneumothorax on R Chest tube remains in place, managed by general surgery, will likely remove pending Dr Aguilera's review of today's CXR Pain control adequate Continue lortab and ketorolac as needed, has not required pain medication today No fractures identified on imaging done in ED PT/OT HLD resume home med of fish oil gets monthly repatha as well, managed by Dr Britton Non insulin dependent diabetes mellitus hyperglycemic at 237 on admit Improved, 120 at last check resumed home meds- pioglitazone and linagliptin Hx of nonhodgkins lymphoma Diet- regular DVT ppx- lovenox 40mg SQ daily Code status- full DENISE ANSARI DO 03/05/232120: Supervisory-Addendum Brief Verification & Attestation Participated in pt care: history, MDM, physical Personally performed: exam, history, MDM, supervision of care Care discussed with: Medical Student Procedures: n/a Results interpretation: Verified all documentation Verification and Attestation of Medical Student E/M Service A medical student performed and documented this service in my presence. I reviewed and verified all information documented by the medical student and made modifications to such information, when appropriate. I personally performed the physical exam and medical decision making. Denise Ansari, Mar 05, 2023,21:21 JENI WELSH Mar 05, 2023 09:05 DENISE ANSARI DO Mar 05, 2023 21:21
[2023-03-05 11:44] VITALS: BP 123/57
[2023-03-05] MEDS ORDERED: HYDR-3817 PO (16:13)
--- NOTE | 2023-03-05 16:13 | Progress Note ---
Subjective Date Seen by a Provider: Mar 05, 2023 Time Seen by a Provider: 16:00 Subjective/Events-last exam doing welll. no SOB/cough/sputum. pain controlled. summer diet. Objective Exam Vital Signs Date Time Temp Pulse Resp B/P (MAP) Pulse Ox O2 Delivery O2 Flow Rate FiO2 03/05/23 14:10 93 Room Air 0.00 03/05/23 11:44 36.3 78 18 123/57 (79) 93 Room Air 03/05/23 08:47 Room Air 03/05/23 07:50 36.5 88 18 128/59 (82) 91 Room Air 03/05/23 06:52 98 Room Air 0.00 03/05/23 03:48 36.6 89 18 117/70 (86) 95 Nasal Cannula 3.00 3.00 03/04/23 23:44 36.5 82 18 111/63 (79) 97 Nasal Cannula 3.00 3.00 03/04/23 20:54 98 Nasal Cannula 3.00 03/04/23 20:41 98 Nasal Cannula 3.00 03/04/23 19:16 36.7 79 18 163/64 (97) 96 Nasal Cannula 3.00 I & O 03/05/23 07:00 Intake Total 1670 ml Output Total 1375 ml Balance 295 ml Capillary Refill : Less Than 3 Seconds General Appearance: No Apparent Distress HEENT: PERRL/EOMI Neck: Full Range of Motion Respiratory: Chest Non Tender, Normal Breath Sounds, Rhonci Cardiovascular: Regular Rate, Rhythm Gastrointestinal: normal bowel sounds, non tender, soft Extremity: Normal Capillary Refill Neurologic/Psychiatric: Alert, Oriented x3 Skin: Normal Color Lymphatic: No Adenopathy Results Lab Laboratory Tests 03/04/23 20:13: Glucometer 150H 03/05/23 05:20: Glucometer 120H 03/05/23 10:31: Glucometer 143H 03/05/23 15:27: Glucometer 127H Assessment/Plan Assessment/Plan Assess & Plan/Chief Complaint traumatic right PTX s/p chest tube placement. lung fully inflated on suction and on water seal. will remove CT today then get a f/u cxr. KYM ROSE MD Mar 05, 2023 16:13
--- NOTE | 2023-03-05 16:15 | Discharge Inst-Surgical ---
D/C Lap Instructions-[place] New, Converted, or Re-Newed RX: RX on Chart Follow Up Appt in 1 week Activity as tolerated get OP cxr on saturday 03/10 Incentive Spirometry use every 2 hours while awake Regular Diet Symptoms to Report: Fever over 101 degree F, Nausea/Vomiting Infection Signs and Symptoms to report: Increased redness, Foul odor of wound, Increased drainage Bathing instructions: May shower Operative Area Clean/Dry; Keep incision clean/dry If any problems/questions: Contact your physician or go to Emergency Room KYM ROSE MD Mar 05, 2023 16:15
[2023-03-05 16:20] VITALS: BP 128/67
--- NOTE | 2023-03-05 18:56 | Diagnostic Imaging Report ---
INDICATION: 77-year-old female, chest tube removal, followup. COMPARISONS: 03/05/2023 FINDINGS: Single view chest shows normal heart, pleura and diaphragms. No consolidations are seen. There is some background chronic parenchymal changes. There is no pneumothorax post removal of a right chest tube. IMPRESSION: 1. No pneumothorax. 2. Senescent chest with some chronic parenchymal changes but no evidence of acute cardiopulmonary disease. Dictated by: Dictated on workstation # [id number]
[2023-03-05 19:35] VITALS: BP 128/67
[2023-03-05 19:58] VITALS: BP 117/71
[2023-03-06] MEDS ORDERED: PANTOPRAZOLE 40 MG (PROTONIX) TAB PO SCH (09:00)
[2023-03-07] MEDS ORDERED: LIDOCAINE 1% INJ 10 ML VIAL INJ ONE (13:00)
== END 2023-03-05 19:55 | disposition home or self-care (01) | DRG 200 ==
LOC: EDUNIT# 14:42 → ER 14:44 → 4TH 16:22 → OBSVTOIN 03-03 11:31
PROVIDERS: ADMIT Surgery; ATTEND Surgery
PROC: 0W9930Z Drainage of Right Pleural Cavity with Drainage Device, Percutaneous Approach (ICD-10-PCS; principal; 2023-03-03)
DX: S27.0XXA Traumatic pneumothorax, initial encounter (principal); C82.90 Follicular lymphoma, unspecified, unspecified site; E11.9 Type 2 diabetes mellitus without complications; E78.00 Pure hypercholesterolemia, unspecified; H54.7 Unspecified visual loss; Z79.899 Other long term (current) drug therapy; W19.XXXA Unspecified fall, initial encounter; Y92.009 Unspecified place in unspecified non-institutional (private) residence as the place of occurrence of the external cause; Z79.84 Long term (current) use of oral hypoglycemic drugs
CPT/HCPCS: 36415; 71045; 71100; 73030; 80053; 82947; 85025; 94640; 94760; G0378

== ENCOUNTER → 2023-07-24 | Outpatient (CLI) | payer MEDICARE, BC ==
[~2023-07-24] MED LIST changes: +ASPI-1238 PO; +CHOL-34 PO; +ESCI20TA PO; -EZET10TA17 PO; +EZET10TA83 PO; +HYDR-3817 PO; +MULT-1136 PO; +OMEG100032 PO; +SITA100T12 PO
--- NOTE | 2023-07-24 09:57 | Diagnostic Imaging Report ---
INDICATION: Routine screening. Comparison is made with prior mammogram 06/14/2022 and 06/13/2021. 2-D and 3-D bilateral screening mammography was performed with CAD. Scattered fibroglandular densities are identified bilaterally. The parenchymal pattern is stable. No mass or malignant-appearing microcalcifications are seen. Axillae are unremarkable. IMPRESSION: No mammographic features suspicious for malignancy are identified. ACR BI-RADS Category 1: Negative. Result letter will be mailed to the patient. Note: At least 10% of breast cancer is not imaged by mammography. BI-RADS Category 1 Dictated by: Dictated on workstation # [id number]
== END ==
LOC: RAD 07:46
PROVIDERS: ATTEND Internal Medicine
DX: Z12.31 Encounter for screening mammogram for malignant neoplasm of breast (principal)
CPT/HCPCS: 77063; 77067